=== PATIENT | female | born 1930 | race Caucasian/White ===

== ENCOUNTER 2019-07-16 07:02 | Inpatient (IN) ==
--- NOTE | 2019-06-25 16:31 | PAT Medication Instructions ---
Medication Instructions Date of Service June 25, 2019 Home Medications C,E,zinc,copper [id number] [Ocuvite Adult 50 Plus] 1 cap PO HS amlodipine [Norvasc] 10 mg PO QAM calcium carbonate-vitamin D3 [Calcium 600 + D(3)] 1 cap PO BID cetirizine [Zyrtec] 10 mg PO QAM PRN cholecalciferol (vitamin D3) [Vitamin D3] 1,000 unit PO BID coQ10 (ubiquinol) 50 mg PO QAM fluticasone furoate [Arnuity Ellipta] 1 inh INHALATION QAM fluticasone propionate [Flonase Allergy Relief] 1 spray INTRANASAL QAM ibuprofen 400 mg PO Q6H PRN losartan 50 mg PO QAM magnesium 250 mg PO QAM montelukast [Singulair] 10 mg PO PM potassium gluconate 595 mg PO HS red yeast rice 600 mg PO BID ASK your surgeon for instructions ibuprofen 400 mg PO Q6H PRN STOP taking 2 weeks before surgery C,E,zinc,copper [id number] [Ocuvite Adult 50 Plus] 1 cap PO HS coQ10 (ubiquinol) 50 mg PO QAM red yeast rice 600 mg PO BID DO NOT take the morning of surgery calcium carbonate-vitamin D3 [Calcium 600 + D(3)] 1 cap PO BID cetirizine [Zyrtec] 10 mg PO QAM PRN cholecalciferol (vitamin D3) [Vitamin D3] 1,000 unit PO BID losartan 50 mg PO QAM magnesium 250 mg PO QAM Take morning of surgery With a small sip of water, OTHERWISE NOTHING TO EAT OR DRINK AFTER MIDNIGHT: amlodipine [Norvasc] 10 mg PO QAM fluticasone furoate [Arnuity Ellipta] 1 inh INHALATION QAM fluticasone propionate [Flonase Allergy Relief] 1 spray INTRANASAL QAM Take evening before surgery calcium carbonate-vitamin D3 [Calcium 600 + D(3)] 1 cap PO BID cholecalciferol (vitamin D3) [Vitamin D3] 1,000 unit PO BID montelukast [Singulair] 10 mg PO PM potassium gluconate 595 mg PO HS Other Notes If you have any questions please call us at [phone] or [phone] or [phone] or [phone]
--- NOTE | 2019-06-26 14:05 | Anesthesiology Consultation ---
Date of Service June 26, 2019 Assessment & Plan (1) Encounter for pre-operative examination: Chart Review Chart Review: Acceptable Risk for Surgery (pending surgeon-ordered PCP clearance) and Patient seen in Pre Admission Testing Teaching & Discussion Instructed NPO after midnight before surgery, except medications with 15 cc of water. Medication instructions provided according to the PAT guidelines. History Surgery Operation Date: 07/16/19 11:25 Proposed Procedures p Right Anterior Total Hip Arthroplasty - Demetri Gunter DO Height/Weight Height: 5 ft 2 in Weight: 76.1 kg Allergies Allergy/AdvReac Type Severity Reaction Status Date / Time No Known Allergies Allergy Mild Verified 06/25/19 13:38 Medications Home Medications Medication Instructions Recorded Confirmed Last Taken C,E,zinc,copper [id number] 1 cap PO HS 06/25/19 06/25/19 Unknown [Ocuvite Adult 50 Plus] amlodipine [Norvasc] 10 mg PO QAM 06/25/19 06/25/19 Unknown calcium carbonate-vitamin D3 1 cap PO BID 06/25/19 06/25/19 Unknown [Calcium 600 + D(3)] cetirizine [Zyrtec] 10 mg PO QAM PRN 06/25/19 06/25/19 Unknown cholecalciferol (vitamin D3) 1,000 unit PO BID 06/25/19 06/25/19 Unknown [Vitamin D3] coQ10 (ubiquinol) 50 mg PO QAM 06/25/19 06/25/19 Unknown fluticasone furoate [Arnuity 1 inh INHALATION QAM 06/25/19 06/25/19 Unknown Ellipta] fluticasone propionate [Flonase 1 spray INTRANASAL QAM 06/25/19 06/25/19 Unknown Allergy Relief] ibuprofen 400 mg PO Q6H PRN 06/25/19 06/25/19 Unknown losartan 50 mg PO QAM 06/25/19 06/25/19 Unknown magnesium 250 mg PO QAM 06/25/19 06/25/19 Unknown montelukast [Singulair] 10 mg PO PM 06/25/19 06/25/19 Unknown potassium gluconate 595 mg PO HS 06/25/19 06/25/19 Unknown red yeast rice 600 mg PO BID 06/25/19 06/25/19 Unknown Past Medical History Medical History Arthritis Asthma BRONCHIAL F/U DR JENN ALMEIDA. ARNUITY ELLIPTA DAILY, NO PRN INHALER. GERD (gastroesophageal reflux disease) Hiatal hernia Hyperlipidemia PCP MONITORING Hypertension Osteoporosis Urinary incontinence Exercise / Class Metabolic Activity III < 4 Walking/Shop/Light housework (denies CP or SOB with 1 FOS but moving v dimitris slowly 2/2 hip pain) Past Surgical History Surgical History H/O parathyroidectomy History of appendectomy History of bladder surgery FOR INCONTINENCE History of colonoscopy History of esophagogastroduodenoscopy (EGD) History of hysterectomy TOTAL History of total knee replacement R/L Past Anesthesia History No Hx of Anesthesia Complications and No Family Hx of Anesthesia Complications History of PONV No Hx of PONV and No Hx of Motion Sickness (but sometimes has vertigo) Social History Smoking Status: Never smoker Do You Dip or Chew Tobacco: No Hx Alcohol Use: Yes Alcohol type: wine alcohol intake frequency: holidays/special occasions only Hx Substance Use: No Review of Systems Pt denies any recent chest pain, shortness of breath, palpitations, cough, fever or URI. Physical Exam Vital Signs BP: 132/78 P: 77bpm SPO2: 94% RA T: 97.5 F R: 12 ENMT Mouth: + dentures (partial upper); no dental restorations, no chipped teeth and no loose teeth Thyromental Distance: < 3.5 Finger Breadths (3) Mallampati Class: III Neck + short neck; neck extension not limited Respiratory normal respiratory effort Auscultation: lungs clear to auscultation bilaterally Cardiovascular Rate/Rhythm: regular rate and regular rhythm Heart Sounds: no murmur Vessels: no carotid bruit Extremities: no edema Testing Laboratory Results 06/26/19 14:15 PT 10.3 Seconds (9.0-12.0) 06/26/19 14:15 INR 1.0 (0.9-1.1) 06/26/19 14:15 APTT 23.6 Seconds (21.0-31.0) 06/26/19 14:15 Urine Color Yellow 06/26/19 14:15 Urine Appearance Cloudy (Clear) A 06/26/19 14:15 Urine pH 6.5 (4.5-7.5) 06/26/19 14:15 Ur Specific [place] 1.021 (1.000-1.030) 06/26/19 14:15 Urine Protein Negative (Negative) 06/26/19 14:15 Urine Glucose (UA) Negative (Negative) 06/26/19 14:15 Urine Ketones Trace (Negative) H 06/26/19 14:15 Urine Nitrite Positive (Negative) A 06/26/19 14:15 Ur Leukocyte Esterase 2+ (Negative) H 06/26/19 14:15 Urine WBC (Auto) >30 /hpf (0-5) H 06/26/19 14:15 Urine RBC (Auto) 0-4 /hpf (0-4) 06/26/19 14:15 U Hyaline Cast (Auto) 5-10 /lpf (0-5) H 06/26/19 14:15 U Epithel Cells (Auto) 5-10 /lpf (0-5) H 06/26/19 14:15 Urine Bacteria (Auto) 4+ (Negative) H 06/26/19 14:15 06/18/19 SODIUM: 141 POTASSIUM: 4.2 CHLORIDE: 106 CO2: 31 BUN: 26 CREATININE: 1.10 GLUCOSE: 117 A1C: 6.2% Electrocardiogram Date: 06/26/19 Findings: + NSR @ (70 with occasional PVCs) Chest X-Ray Date: 06/26/19 Findings: + NAD Pulmonary Function Test Date: 05/07/19 No significant expiratory airflow obstruction. There is some, but not significant, improvement in airflow following inhaled bronchodilator. Final impression: Normal spirometry.
--- NOTE | 2019-06-26 15:10 | XRay Report ---
XR chest Pre-admission PA/Lat HISTORY: 88 years-old Female pat preoperative exam. No acute chest complaints COMPARISON: None available TECHNIQUE: PA and lateral views of the chest FINDINGS: Eventration of the right hemidiaphragm. The cardiomediastinal and hilar silhouettes are within normal limits. Tortuosity of the descending thoracic aorta. No pneumothorax, large pleural effusion, focal airspace consolidation or overt pulmonary edema. Mild blunting of the posterior costophrenic angles. Degenerative changes of the shoulders and spine. Sigmoidal scoliosis of the thoracolumbar spine. IMPRESSION: No acute process. ACT 112: Negative or not required by law. The above report was generated using voice recognition software. It may contain grammatical, syntax o r spelling errors. Electronically signed by: Bin Carr M.D. 06/26/2019 3:09 PM
[2019-06-26 15:56] LABS: Basophils # (auto) 0.02 K/uL (0-0.2); Basophils % (auto) 0.3 %; Eosinophils # (auto) 0.11 K/uL (0-0.5); Eosinophils % (auto) 1.7 %; Hematocrit (blood only) 42.2 % (37-47); Immature Granulocytes # (auto) 0.01 K/uL (0.00-0.02); Immature Granulocytes % (auto) 0.2 %; Lymphocytes # (auto) 1.94 K/uL (1.2-3.4); Lymphocytes % (auto) 30.7 %; Mean Corpuscular Hemoglobin 31.5 pg (25-34); Mean Corpuscular Hgb Conc 33.2 g/dL (32-36); Mean Corpuscular Volume 94.8 fL (80-100); Mean Platelet Volume 12.2 fL (7.4-10.4); Monocytes # (auto) 0.48 K/uL (0.11-0.59); Monocytes % (auto) 7.6 %; Neutrophils # (auto) 3.76 K/uL (1.4-6.5); Neutrophils % (auto) 59.5 %; Platelet Count 192 K/uL (130-400); RDW Coefficient of Variation 13.5 % (11.5-14.5); Red Blood Count 4.45 M/uL (4.2-5.4); White Blood Count 6.32 K/uL (4.8-10.8)
[2019-06-26 15:59] LABS: Appearance Urine Cloudy (Clear); Bacteria Urine Automated 4+ (Negative); Bilirubin Urine Negative (Negative); Blood Urine Negative (Negative); Color Urine Yellow; Glucose Urine UA Negative (Negative); Ketones Urine Trace (Negative); Leukocyte Esterase Urine 2+ (Negative); Nitrite Urine Positive (Negative); Protein Urine Negative (Negative); RBC Urine Automated 0-4 /hpf (0-4); Specific Gravity Urine 1.021 (1.000-1.030); Urobilinogen Urine Negative (Negative); WBC Urine Automated >30 /hpf (0-5); pH Urine 6.5 (4.5-7.5)
[2019-06-26 16:06] LABS: Partial Thromboplastin Ratio 0.9; Partial Thromboplastin Time 23.6 Seconds (21.0-31.0); Prothrombin Time 10.3 Seconds (9.0-12.0)
--- NOTE | 2019-07-15 20:45 | History & Physical Report ---
Date of Service July 15, 2019 Assessment & Plan (1) Degenerative joint disease of right hip: I have indicated the patient for right anterior total hip replacement. The risks, benefits and complications of surgery were explained to the patient which include but not limited to infection, acute blood loss, DVT/PE, injury to nerves, vessels, bone, soft tissue, arthrofibrosis, chronic pain, failure of the prosthesis, hip dislocation, leg length discrepancy, need for additional surgery, cardiac and pulmonary events and . The patient wished to proceed with surgery and informed consent was obtained at this time. We will plan for 81mg ASA BID post-operatively for DVT prophylaxis. Upon discharge the patient will be discharged home with home health services. Appropriate clearances by PCP were obtained. The patient is asymptomatic for signs and symptoms of UTI. History of Present Illness Chief Complaint: Right hip pain/djd Primary Care Provider: Joleen Hood DO The patient is a 88 year old female who presents with complaints of severe right hip pain and DJD. The patient has failed outpatient conservative treatments to this point which included NSAIDs, IA corticosteroid injection, PT and a home exercise/walking program. The patient's pain and limited function have progressed to the point where they severely hinder their activities of daily living and they no longer tolerate exercise programs. They are requesting to proceed with total hip replacement surgery. Allergies Allergy/AdvReac Type Severity Reaction Status Date / Time No Known Allergies Allergy Mild Verified 07/16/19 07:48 Home Medications Home Medications Medication Instructions Recorded Confirmed Type C,E,zinc,copper [id number] 1 cap PO HS 06/25/19 07/16/19 History [Ocuvite Adult 50 Plus] amlodipine [Norvasc] 10 mg PO QAM 06/25/19 07/16/19 History calcium carbonate-vitamin D3 1 cap PO BID 06/25/19 07/16/19 History [Calcium 600 + D(3)] cetirizine [Zyrtec] 10 mg PO QAM PRN 06/25/19 07/16/19 History cholecalciferol (vitamin D3) 1,000 unit PO BID 06/25/19 07/16/19 History [Vitamin D3] coQ10 (ubiquinol) 50 mg PO QAM 06/25/19 07/16/19 History fluticasone furoate [Arnuity 1 inh INHALATION QAM 06/25/19 07/16/19 History Ellipta] fluticasone propionate [Flonase 1 spray INTRANASAL QAM 06/25/19 07/16/19 History Allergy Relief] ibuprofen 400 mg PO Q6H PRN 06/25/19 07/16/19 History losartan 50 mg PO QAM 06/25/19 07/16/19 History magnesium 250 mg PO QAM 06/25/19 07/16/19 History montelukast [Singulair] 10 mg PO PM 06/25/19 07/16/19 History potassium gluconate 595 mg PO HS 06/25/19 07/16/19 History red yeast rice 600 mg PO BID 06/25/19 07/16/19 History Past Med/Surg History Medical History Arthritis Asthma BRONCHIAL F/U DR JENN ALMEIDA. ARNUITY ELLIPTA DAILY, NO PRN INHALER. GERD (gastroesophageal reflux disease) Hiatal hernia Hyperlipidemia PCP MONITORING Hypertension Osteoporosis Urinary incontinence Surgical History H/O parathyroidectomy History of appendectomy History of bladder surgery FOR INCONTINENCE History of colonoscopy History of esophagogastroduodenoscopy (EGD) History of hysterectomy TOTAL History of total knee replacement R/L Social History Preferred Language: Yi Communication Ability: Effective Research Assistant Professor Required: No Beliefs That Will Affect Care: None Current Living Situation: Family Other Information That Helps Us Care for You: No Feels Safe at Home: Yes Safety Concerns: Feels Safe At This Time Smoking Status: Never smoker Do You Dip or Chew Tobacco: No ; Second Hand Exposure: No ; Hx Alcohol Use: Yes Alcohol type: wine Hx Substance Use: No Review of Systems Review of Systems: All systems reviewed & are unremarkable except as noted in HPI & below Constitutional: as per Subjective / HPI Physical Exam Physical Exam: RLE NVSI +EHL/FHL/TA/GS SILT grossly, +2 DP pulse, compartments soft NT, limited painful ROM of the hip, antalgic gait Constitutional: WD/WN, vitals as above Eyes: PERRL, conjunctivae normal, anicteric sclerae ENMT: external ear and nose normal, oropharynx normal Neck: trachea midline, no thyromegaly Respiratory: normal respiratory effort, lungs clear to auscultation Cardiovascular: RRR, no murmur, no edema Gastrointestinal (Abdomen): normal bowel sounds, soft, nontender, no hepatosplenomegaly Musculoskeletal: no cyanosis or clubbing, extremities motor strength 5/5 Skin: no rashes, warm and dry Neurologic: patellar DTR's 2+ bilat, sensation intact Psychiatric: A+Ox3, euthymic affect Lymphatic: no cervical or axillary lymphadenopathy Results & Data Diagnostic Findings Multiple views of the hip demonstrates severe DJD with complete loss of the joint space. +osteophytes, +sclerosis, +subchondral cysts.
[~2019-07-16 07:02] MED LIST: ACETAMINOPHEN 500 MG TAB PO SCH; BUPIVACAINE 0.5 % 5 MG/1 ML PF 10ML VIAL ONE; CEFAZOLIN 1000MG 1,000 MG/7.5 ML SYR IV SCH; CEFAZOLIN 2000MG 2,000 MG/15 ML SYR IV SCH; CeleBREX 200 MG CAP PO SCH; FAMOTIDINE 20 MG TAB PO SCH; LR 500ML BOLUS, THEN 15ML/HR IV SCH; METOCLOPRAMIDE HCL 10 MG TABLET PO SCH; ROPIVACAINE 0.5% HCL/PF 150 MG, BUPIVACAINE 0.5% MPF 30 ML, EPINEPHrine 30MG/30ML (OR U... INFIL SCH; TRANEXAMIC ACID 1,000 MG **IV Intra-op IV SCH; TRANEXAMIC ACID 1,000 MG **IV Pre-op IV SCH; dexAMETHasone 4 MG TAB PO SCH
[2019-07-16] MEDS ORDERED: ONDANSETRON INJ 2 MG/ML 2 ML VIAL ONE (07:50)
[2019-07-16] MEDS ORDERED: PROPOFOL IV EMULSION 10 MG/ML 20 ML VIAL IV ONE (07:50)
[2019-07-16] MEDS ORDERED: LIDOCAINE HCL 2% 2 ML VIAL/AMP(20MG/ML) INFIL ONE (07:50)
[2019-07-16] MEDS ORDERED: MIDAZOLAM HCL 1 MG/ML 2ML VIAL ONE ×2 (07:51→10:32)
[2019-07-16] MEDS ORDERED: TRANEXAMIC ACID / 0.7% NACL 1000MG/100ML BAG IV ONE (08:11)
[2019-07-16] MEDS ORDERED: KETOROLAC 30 MG/ML VIAL IV PRN (09:14)
[2019-07-16] MEDS ORDERED: ONDANSETRON INJ 2 MG/ML 2 ML VIAL IV PRN ×2 (09:14→13:12)
[2019-07-16] MEDS ORDERED: HYDROmorphone INJ 1 MG/ML SYRINGE IV PRN (09:14)
[2019-07-16] MEDS ORDERED: PHENYLEPHRINE 100MCG/ML 5ML SYR IV PRN (09:14)
[2019-07-16] MEDS ORDERED: ATROPINE SULFATE 0.1 MG/ML 10ML SYR IV PRN (09:14)
[2019-07-16] MEDS ORDERED: ePHEDrine sulfate 50 MG/ML AMP IV PRN (09:14)
--- NOTE | 2019-07-16 09:25 | History & Physical Bridge Note ---
Date of Service July 16, 2019 History & Physical Bridge Note I have examined the patient, reviewed the History & Physical and in the interval since the performance of the History & Physical I have noted the following changes of clinical significance: no changes noted
[2019-07-16] MEDS ORDERED: ORTHO JOINT ANESTHETIC ONE (09:29)
[2019-07-16] MEDS ORDERED: BACITRACIN INJ 50,000 UNIT VIAL ONE (09:29)
--- NOTE | 2019-07-16 12:09 | Post Operative Brief Note ---
Immediate Post Op Note v1 Date of Surgery July 16, 2019 Pre & Post Diagnosis Operation Date: 07/16/19 09:45 Pre-Op Diagnosis: RIGHT HIP OSTEOARTHRITIS Post-Op Diagnosis: RIGHT HIP OSTEOARTHRITIS I identified the patient and participated in the time-out.: Yes Procedure Operation Date: 07/16/19 09:45 Actual Procedures p Right Anterior Total Hip Arthroplasty, Cemented(Right) - Demetri Gunter DO Surgeon Demetri Gunter DO Oil Well Directional Surveyor Naeem Pederson Estimated Blood Loss 185 Findings Consistent with Post-Op Diagnosis Fluids 1200 cc LR Specimens femoral head Anesthesia Type Spinal MAC Complications none Disposition Disposition: Recovery Room Overlapping Procedure I was present for: the critical portions of procedure. I was immediately available: during the entire case. Back up surgeon: was not required during procedure.
--- NOTE | 2019-07-16 12:12 | Operative Report ---
Post Operative Report Pre & Post Diagnosis Operation Date: 07/16/19 09:45 Pre-Op Diagnosis: RIGHT HIP OSTEOARTHRITIS Post-Op Diagnosis: RIGHT HIP OSTEOARTHRITIS I identified the patient and participated in the time-out.: Yes Procedure Operation Date: 07/16/19 09:45 Actual Procedures p Right Anterior Total Hip Arthroplasty, Cemented(Right) - Demetri Gunter DO Surgeon Demetri Gunter DO Command And Control Naeem Pederson Estimated Blood Loss 185 Findings Consistent with Post-Op Diagnosis Fluids 1200 cc LR Specimens femoral head Anesthesia Type Spinal MAC Complications none Disposition Disposition: Recovery Room Indications The patient is a 88-year-old female who presents with severe progressive right hip DJD who has failed outpatient conservative treatments. I indicated the patient for a anterior total hip replacement and the risks and benefits were explained in detail which include but not limited to infection, bleeding, blood clot, damage to surrounding bone, nerves, vessels, soft tissue, hip dislocation, failure of the prosthesis, leg length discrepancy, need for additional surgery and . The patient agreed to proceed with replacement of the hip and informed consent was obtained. Appropriate clearances were obtained. Description of Procedure COMPONENTS USED: [employer] CP CS hip system: Acetabulum size 50, femur size 4 standard offset CPCS cemented offset, femoral head 32-3, liner 5032, acetabular screw 25 mm x 1. DESCRIPTION OF PROCEDURE: Following satisfactory spinal anesthesia, the patient was placed supine on the OR table. The left leg was placed in the well leg gray and the right leg in the traction device. The right leg was prepared with ChloraPrep and draped sterilely. A surgical timeout was performed, patient identified and site ayse verified. Appropriate antibiotics were given. A standard anterior approach in the interval between the sartorius and tensor muscles was performed. Dissection was carried down through subcutaneous tissues. Electrocautery was utilized for hemostasis. Circumflex femoral vessels were identified, tied and ligated. The anterior capsular fat pad was removed and the capsulotomy was performed revealing the arthritic femoral neck and head. A femoral neck cut was made with reciprocating saw and the bone fragments removed. The acetabular self-retraining retractor was placed. Acetabular reaming was completed under fluoroscopic guidance, a 50 shell was impacted into an anatomic position and secured with a dome screw. Local anesthetic was placed and following irrigation, the polyethylene liner was placed. The femur was placed into position of external rotation, extension and adduction. Femoral canal was prepared up to the size 4 standard offset. Trial reduction with a 32-3 neck length head showed good soft tissue tension, leg lengths restored, and good fit and fill of the proximal canal using fluoroscopic landmarks. The hip was dislocated. The trial component was removed. Next, the canal was irrigated with copious amounts of sterile saline solution with baitracin and dried. Cement restrictor placed in the canal. The final implant was cemented into place and held until all cement hardened. All excess cement was removed. A trial reduction with a 32-3 neck length head showed good soft tissue tension, leg lengths restored, and good fit and fill of the proximal canal using fluoroscopic landmarks. The hip was dislocated and trial head removed. The neck was cleaned and final 32-[address] The hip was reduced once again and showed good soft tissue tension, leg lengths restored. A Betadine soak was performed. After 3 minutes, the hip was once more irrigated with copious sterile saline solution with bacitracin. Jagruti-incisional soft tissue was injected utilizing [employer] which includes a combination of Ropivicaine 0.5% 150mg, Bupivicaine 0.5%/Epinephrine 1:200,000 30ml, Toradol 30mg, Dexamethasone 4mg, Ketamine 10mg, Clonidine 100mcg and NSS 30ml solution. The capsule was then closed with 1-0 Vicryl interrupted figure of eight sutures. The fascia was closed with a running suture of #1 Vicryl, the subcutaneous tissues with 2-0 Vicryl and the skin with a running subcuticular stitch of 3-0 V-Loc. Dermabond prineo and a dry dressing were applied. The patient tolerated the procedure well and was transported to PACU in stable condition. Due to the complex nature of the procedure, the entire surgery was performed with the operational assistance of Naeem pederson PA-C. The assignment desk assistant, under direct supervision, was involved in the actual performance of all aspects of the surgical procedure including patient positioning, hemostasis, tissue retraction, instrument management and wound closure. I attest to the content of the Intraoperative Record and any orders documented therein. Any exceptions are noted below.
--- NOTE | 2019-07-16 12:23 | Fluoroscopy Report ---
FL hip RT 1V CLINICAL HISTORY: RT ANTERIOR HIP COMPARISON STUDY: None. FLUOROSCOPY TIME: 38 seconds. FINDINGS: 2 fluoroscopic spot images of the right hip demonstrate a right total arthroplasty. Hardwar e appears intact. No fracture or dislocation. IMPRESSION: Fluoroscopy provided for a right total arthroplasty. ACT 112: Negative or not required by law. Electronically signed by: Leif Kennedy M.D. 07/16/2019 12:21 PM
--- NOTE | 2019-07-16 12:52 | XRay Report ---
XR hip 1V RT w pelvis CLINICAL HISTORY: 88 years-old Female presenting with IN PACU - A/P PELVIS and LATERAL HIP . TECHNIQUE: Single frontal view of the pelvis and crosstable lateral view of the right hip were obtain ed. COMPARISON: None. FINDINGS: The iliac wheezings and sacrum are excluded from the [id number] limiting evaluation of this region . Postsurgical changes of total right hip arthroplasty evident. Surrounding soft tissue emphysema con sistent with the recent postoperative setting. No malalignment. No periprosthetic fracture or lucency . Visualized portion of the pelvis intact. Left hip joint congruent. IMPRESSION: Expected postsurgical appearance status post total right hip arthroplasty. ACT 112: Negative or not required by law. Electronically signed by: Sam Cartwright M.D. 07/16/2019 12:51 PM
[2019-07-16] MEDS ORDERED: HYDROmorphone INJ 0.5 MG/0.5 ML SYR IV PRN (13:12)
[2019-07-16] MEDS ORDERED: METOCLOPRAMIDE HCL INJ 5 MG/ML 2 ML VIAL IV PRN (13:12)
[2019-07-16] MEDS ORDERED: NALOXONE HCL 0.4 MG/1 ML VIAL/CARP IV PRN (13:12)
[2019-07-16] MEDS ORDERED: MAGNESIUM HYDROXIDE SUSP 30 ML UDC PO PRN (13:12)
[2019-07-16] MEDS ORDERED: bisacodyL 10 MG SUPP PR PRN (13:12)
[2019-07-16] MEDS ORDERED: TRAMADOL HCL 50 MG TABLET PO PRN (13:12)
--- NOTE | 2019-07-16 13:16 | Anesthesiology Progress Note ---
Date of Service July 16, 2019 Anesthesia Post Procedure Vital Signs Vital Signs: Temp Pulse Pulse Resp BP Pulse Ox 07/16/19 12:50 36.0 C L 68 19 132/76 94 07/16/19 12:40 60 16 133/70 98 07/16/19 12:30 70 17 127/70 99 07/16/19 12:23 36.0 C L 76 18 122/88 95 07/16/19 07:54 36.8 C 71 18 210/84 H 96 Pain Intensity Right Hip: Pain Intensity: 4 Transfer of Care Handoff Completed per policy Notes Mental Status: alert / awake / arousable Patient Amnestic to Procedure: Yes Nausea / Vomiting: adequately controlled Pain: adequately controlled Airway Patency, RR, SpO2: stable & adequate BP & HR: stable & adequate Hydration State: stable & adequate Anesthetic Complications: no major complications apparent
[2019-07-16] MEDS: SODIUM CHLORIDE 0.9% 1000ML 1,000 ML IV SCH ×2 (13:55→23:47)
[2019-07-16] MEDS: ACETAMINOPHEN 500 MG TAB PO SCH (15:48)
[2019-07-16] MEDS: KETOROLAC TROMETHAMINE 15 MG/ML VIAL IV SCH ×2 (15:48→21:01)
--- NOTE | 2019-07-16 17:04 | Orthopedic Progress Note ---
Date of Service July 16, 2019 Assessment & Plan (1) Degenerative joint disease of right hip: s/p R anterior ASHLEY -ancef x 24 -DVT ppx: SCDs, TEDs, 81mg ASA BID -WBAT RLE -PT/OT -PO XR demonstrates well aligned well fixed prothesis without fracture/dislocation -a.m. labs -DC planning Subjective Post Operative Progress Note Patient seen sitting up in bed, comfortable, denies complaints, pain well controlled, no acute issues. Review of Systems Review of Systems: All systems reviewed & are unremarkable except as noted in HPI & below Constitutional: as per Subjective / HPI Physical Exam Physical Exam: RLE NVSI +EHL/FHL/TA/GS SILT grossly, +2 DP pulse, compartments soft NT, dressing cdi. Constitutional: WD/WN, vitals as above Results & Data Vital Signs (Past 12 Hours) Vital Signs Temp Pulse Pulse Pulse Resp BP Pulse Ox 07/16/19 16:20 36.6 C 69 17 139/75 95 07/16/19 16:06 36.6 C 69 16 130/74 92 07/16/19 14:59 36.4 C L 18 148/90 H 97 07/16/19 13:53 36.4 C L 16 164/77 H 99 07/16/19 13:05 36.4 C L 62 18 155/82 H 91 07/16/19 12:50 36.0 C L 68 19 132/76 94 07/16/19 12:40 60 16 133/70 98 07/16/19 12:30 70 17 127/70 99 07/16/19 12:23 36.0 C L 76 18 122/88 95 07/16/19 07:54 36.8 C 71 18 210/84 H 96
[2019-07-16] MEDS: CEFAZOLIN 1000MG 1,000 MG/7.5 ML SYR IV SCH (18:50)
[2019-07-16] MEDS: DOCUSATE SODIUM 100 MG CAP PO SCH (20:44)
[2019-07-16] MEDS: SENNA 8.6 MG TAB PO SCH (20:44)
[2019-07-16] MEDS: MONTELUKAST SODIUM 10 MG TABLET PO SCH (20:46)
[2019-07-16] MEDS ORDERED: NON-FORMULARY MEDICATION (Potassium Gluconate 595 MG) PO SCH (21:00)
[2019-07-17] MEDS: CEFAZOLIN 1000MG 1,000 MG/7.5 ML SYR IV SCH (02:55)
[2019-07-17] MEDS: KETOROLAC TROMETHAMINE 15 MG/ML VIAL IV SCH ×2 (03:01→09:29)
[2019-07-17] MEDS: ACETAMINOPHEN 500 MG TAB PO SCH ×3 (05:18→21:31)
[2019-07-17 05:36] LABS: Basophils # (auto) 0.01 K/uL (0-0.2); Basophils % (auto) 0.1 %; Eosinophils # (auto) 0.01 K/uL (0-0.5); Eosinophils % (auto) 0.1 %; Hematocrit (blood only) 32.9 % (37-47); Immature Granulocytes # (auto) 0.02 K/uL (0.00-0.02); Immature Granulocytes % (auto) 0.2 %; Lymphocytes # (auto) 1.53 K/uL (1.2-3.4); Lymphocytes % (auto) 16.5 %; Mean Corpuscular Hemoglobin 31.1 pg (25-34); Mean Corpuscular Hgb Conc 33.4 g/dL (32-36); Mean Corpuscular Volume 92.9 fL (80-100); Mean Platelet Volume 11.2 fL (7.4-10.4); Monocytes # (auto) 0.96 K/uL (0.11-0.59); Monocytes % (auto) 10.3 %; Neutrophils # (auto) 6.77 K/uL (1.4-6.5); Neutrophils % (auto) 72.8 %; Platelet Count 171 K/uL (130-400); RDW Coefficient of Variation 13.3 % (11.5-14.5); RDW Standard Deviation 45.1 fL (36.4-46.3); Red Blood Count 3.54 M/uL (4.2-5.4)
[2019-07-17 06:01] LABS: BUN Creatinine Ratio 21.7 (10-20); Calcium 7.8 mg/dl (8.5-10.1); Creatinine Clr Calc Pharmacy 35.7 ml/min; Est GFR (African American) 57.2; Est GFR (Non-African American) 49.3
--- NOTE | 2019-07-17 08:13 | Orthopedic Progress Note ---
Date of Service July 17, 2019 Assessment & Plan (1) Degenerative joint disease of right hip: s/p R anterior ASHLEY POD#1 -ancef x 24, then discontinue -DVT ppx: SCDs, TEDs, 81mg ASA BID -WBAT RLE -PT/OT -PO XR demonstrates well aligned well fixed prothesis without fracture/dislocation -a.m. labs as noted above, Hgb 11.0 -DC planning-patient is planning on home health services when she is discharged. Supervising Physician Co-Signing Physician Notes Patient seen and examined, agree with above assessment and plan. Subjective Patient currently sitting up in bed. She is awake and alert. No overt complaints this morning. Pain is controlled and she states that currently she is comfortable. Denies any shortness of breath, chest pain, lightheadedness. Review of Systems Review of Systems: All systems reviewed & are unremarkable except as noted in HPI & below Constitutional: as per Subjective / HPI Physical Exam Physical Exam: Dressings are clean, dry, and intact. Mild bruising noted around the dressing itself. Thigh is soft and nontender. Calves are soft and nontender. Neurovascular is intact. Toes are mobile and she has good dorsiflexion/plantarflexion of the feet at this time. Results & Data Vital Signs (Past 12 Hours) Vital Signs Temp Pulse Pulse Resp BP BP Pulse Ox 07/17/19 07:56 36.6 C 72 14 118/68 94 07/17/19 03:00 36.5 C 62 16 145/65 H 96 07/16/19 23:30 36.6 C 69 16 122/74 96 Laboratory Results Laboratory Results WBC 9.30 K/uL (4.8-10.8) 07/17/19 04:58 RBC 3.54 M/uL (4.2-5.4) L 07/17/19 04:58 Hgb 11.0 g/dL (12.0-16.0) L 07/17/19 04:58 Hct 32.9 % (37-47) L 07/17/19 04:58 MCV 92.9 fL (80-100) 07/17/19 04:58 MCH 31.1 pg (25-34) 07/17/19 04:58 MCHC 33.4 g/dL (32-36) 07/17/19 04:58 RDW Std Deviation 45.1 fL (36.4-46.3) 07/17/19 04:58 RDW Coeff of Lola 13.3 % (11.5-14.5) 07/17/19 04:58 Plt Count 171 K/uL (130-400) 07/17/19 04:58 MPV 11.2 fL (7.4-10.4) H 07/17/19 04:58 Immature Gran % (Auto) 0.2 % 07/17/19 04:58 Neut % (Auto) 72.8 % 07/17/19 04:58 Lymph % (Auto) 16.5 % 07/17/19 04:58 [place] % (Auto) 10.3 % 07/17/19 04:58 Eos % (Auto) 0.1 % 07/17/19 04:58 Baso % (Auto) 0.1 % 07/17/19 04:58 Immature Gran # (Auto) 0.02 K/uL (0.00-0.02) 07/17/19 04:58 Neut # (Auto) 6.77 K/uL (1.4-6.5) H 07/17/19 04:58 Lymph # (Auto) 1.53 K/uL (1.2-3.4) 07/17/19 04:58 [place] # (Auto) 0.96 K/uL (0.11-0.59) H 07/17/19 04:58 Eos # (Auto) 0.01 K/uL (0-0.5) 07/17/19 04:58 Baso # (Auto) 0.01 K/uL (0-0.2) 07/17/19 04:58 PT 10.3 Seconds (9.0-12.0) 06/26/19 14:15 INR 1.0 (0.9-1.1) 06/26/19 14:15 APTT 23.6 Seconds (21.0-31.0) 06/26/19 14:15 PTT Ratio 0.9 06/26/19 14:15 Sodium 140 mmol/L (136-145) 07/17/19 04:58 Potassium 4.0 mmol/L (3.5-5.1) 07/17/19 04:58 Chloride 110 mmol/L (98-107) H 07/17/19 04:58 Carbon Dioxide 27 mmol/L (21-32) 07/17/19 04:58 Anion Gap 3.0 (3-11) 07/17/19 04:58 BUN 22 mg/dl (7-18) H 07/17/19 04:58 Creatinine 1.01 mg/dl (0.6-1.2) 07/17/19 04:58 Est Cr Clr Drug Dosing 35.7 ml/min 07/17/19 04:58 Est GFR ( Amer) 57.2 07/17/19 04:58 Est GFR (Non-Af Amer) 49.3 07/17/19 04:58 BUN/Creatinine Ratio 21.7 (10-20) H 07/17/19 04:58 Glucose 111 mg/dl (70-99) H 07/17/19 04:58 Calcium 7.8 mg/dl (8.5-10.1) L 07/17/19 04:58 Urine Color Yellow 06/26/19 14:15 Urine Appearance Cloudy (Clear) A 06/26/19 14:15 Urine pH 6.5 (4.5-7.5) 06/26/19 14:15 Ur Specific [place] 1.021 (1.000-1.030) 06/26/19 14:15 Urine Protein Negative (Negative) 06/26/19 14:15 Urine Glucose (UA) Negative (Negative) 06/26/19 14:15 Urine Ketones Trace (Negative) H 06/26/19 14:15 Urine Blood Negative (Negative) 06/26/19 14:15 Urine Nitrite Positive (Negative) A 06/26/19 14:15 Urine Bilirubin Negative (Negative) 06/26/19 14:15 Urine Urobilinogen Negative (Negative) 06/26/19 14:15 Ur Leukocyte Esterase 2+ (Negative) H 06/26/19 14:15 Urine WBC (Auto) >30 /hpf (0-5) H 06/26/19 14:15 Urine RBC (Auto) 0-4 /hpf (0-4) 06/26/19 14:15 U Hyaline Cast (Auto) 5-10 /lpf (0-5) H 06/26/19 14:15 U Epithel Cells (Auto) 5-10 /lpf (0-5) H 06/26/19 14:15 Urine Bacteria (Auto) 4+ (Negative) H 06/26/19 14:15 Blood Type A Positive 06/26/19 14:15 Antibody Screen NEGATIVE 06/26/19 14:15
[2019-07-17] MEDS: DOCUSATE SODIUM 100 MG CAP PO SCH ×2 (09:26→20:38)
[2019-07-17] MEDS: MULTIVITAMIN TAB PO SCH (09:26)
[2019-07-17] MEDS: ASPIRIN 81 MG ECTAB PO SCH ×2 (09:27→20:38)
[2019-07-17] MEDS: LOSARTAN POTASSIUM 50 MG TAB PO SCH (09:27)
[2019-07-17] MEDS: ARNUITY ELLIPTA INH SCH (09:27)
[2019-07-17] MEDS: AMLODIPINE BESYLATE 5 MG TAB PO SCH (09:28)
[2019-07-17] MEDS: CIPROFLOXACIN 500 MG TAB PO SCH ×2 (10:01→20:37)
[2019-07-17] MEDS: SENNA 8.6 MG TAB PO SCH (20:37)
[2019-07-17] MEDS: MONTELUKAST SODIUM 10 MG TABLET PO SCH (20:37)
[2019-07-17] MEDS: CeleBREX 200 MG CAP PO SCH (20:37)
[2019-07-18] MEDS: ACETAMINOPHEN 500 MG TAB PO SCH ×2 (05:34→13:20)
[2019-07-18 07:24] LABS: Basophils # (auto) 0.01 K/uL (0-0.2); Basophils % (auto) 0.2 %; Eosinophils # (auto) 0.09 K/uL (0-0.5); Eosinophils % (auto) 1.5 %; Hematocrit (blood only) 33.8 % (37-47); Hemoglobin 11.3 g/dL (12.0-16.0); Immature Granulocytes # (auto) 0.01 K/uL (0.00-0.02); Immature Granulocytes % (auto) 0.2 %; Lymphocytes # (auto) 1.95 K/uL (1.2-3.4); Lymphocytes % (auto) 32.1 %; Mean Corpuscular Hemoglobin 31.5 pg (25-34); Mean Corpuscular Hgb Conc 33.4 g/dL (32-36); Mean Corpuscular Volume 94.2 fL (80-100); Mean Platelet Volume 11.4 fL (7.4-10.4); Monocytes # (auto) 0.69 K/uL (0.11-0.59); Monocytes % (auto) 11.3 %; Neutrophils # (auto) 3.33 K/uL (1.4-6.5); Neutrophils % (auto) 54.7 %; Platelet Count 166 K/uL (130-400); RDW Coefficient of Variation 13.7 % (11.5-14.5); RDW Standard Deviation 47.1 fL (36.4-46.3); Red Blood Count 3.59 M/uL (4.2-5.4); White Blood Count 6.08 K/uL (4.8-10.8)
[2019-07-18 07:49] LABS: BUN Creatinine Ratio 22.8 (10-20); Calcium 8.2 mg/dl (8.5-10.1); Creatinine Clr Calc Pharmacy 36.1 ml/min; Est GFR (African American) 57.8; Est GFR (Non-African American) 49.9; Potassium 4.3 mmol/L (3.5-5.1)
--- NOTE | 2019-07-18 07:50 | Orthopedic Progress Note ---
Date of Service July 18, 2019 Assessment & Plan (1) Degenerative joint disease of right hip: s/p R anterior ASHLEY POD#2 -ancef x 24, then discontinue -DVT ppx: SCDs, TEDs, 81mg ASA BID -WBAT RLE -PT/OT -PO XR demonstrates well aligned well fixed prothesis without fracture/dislocation -a.m. labs as noted above, hgb 11.3 -DC planning-patient is planning on home health services when she is discharged. Supervising Physician Co-Signing Physician Notes Patient seen and examined, agree with above assessment and plan. Subjective POD 2 s/p R Anterior ASHLEY Pt lying in bed. States she has some mild pain over the lateral hip and thigh. Denies SOB,CP,LH. No other complaints. Hoping to go home today. Review of Systems Review of Systems: All systems reviewed & are unremarkable except as noted in HPI & below Constitutional: as per Subjective / HPI Physical Exam Physical Exam: Dressing C/D/I. Noted bruising around the dressing/thigh consistent with surgery. Calves soft,NT. NV intact. Good DF/PF. Leg lengths equal. Constitutional: WD/WN, vitals as above Results & Data Vital Signs (Past 12 Hours) Vital Signs Temp Pulse Resp BP Pulse Ox 07/17/19 22:50 36.4 C L 63 16 143/72 H 95 Laboratory Results Laboratory Results WBC 6.08 K/uL (4.8-10.8) 07/18/19 06:41 RBC 3.59 M/uL (4.2-5.4) L 07/18/19 06:41 Hgb 11.3 g/dL (12.0-16.0) L 07/18/19 06:41 Hct 33.8 % (37-47) L 07/18/19 06:41 MCV 94.2 fL (80-100) 07/18/19 06:41 MCH 31.5 pg (25-34) 07/18/19 06:41 MCHC 33.4 g/dL (32-36) 07/18/19 06:41 RDW Std Deviation 47.1 fL (36.4-46.3) H 07/18/19 06:41 RDW Coeff of Lola 13.7 % (11.5-14.5) 07/18/19 06:41 Plt Count 166 K/uL (130-400) 07/18/19 06:41 MPV 11.4 fL (7.4-10.4) H 07/18/19 06:41 Immature Gran % (Auto) 0.2 % 07/18/19 06:41 Neut % (Auto) 54.7 % 07/18/19 06:41 Lymph % (Auto) 32.1 % 07/18/19 06:41 [place] % (Auto) 11.3 % 07/18/19 06:41 Eos % (Auto) 1.5 % 07/18/19 06:41 Baso % (Auto) 0.2 % 07/18/19 06:41 Immature Gran # (Auto) 0.01 K/uL (0.00-0.02) 07/18/19 06:41 Neut # (Auto) 3.33 K/uL (1.4-6.5) 07/18/19 06:41 Lymph # (Auto) 1.95 K/uL (1.2-3.4) 07/18/19 06:41 [place] # (Auto) 0.69 K/uL (0.11-0.59) H 07/18/19 06:41 Eos # (Auto) 0.09 K/uL (0-0.5) 07/18/19 06:41 Baso # (Auto) 0.01 K/uL (0-0.2) 07/18/19 06:41 PT 10.3 Seconds (9.0-12.0) 06/26/19 14:15 INR 1.0 (0.9-1.1) 06/26/19 14:15 APTT 23.6 Seconds (21.0-31.0) 06/26/19 14:15 PTT Ratio 0.9 06/26/19 14:15 Sodium 144 mmol/L (136-145) 07/18/19 06:41 Potassium 4.3 mmol/L (3.5-5.1) 07/18/19 06:41 Chloride 112 mmol/L (98-107) H 07/18/19 06:41 Carbon Dioxide 30 mmol/L (21-32) 07/18/19 06:41 Anion Gap 2.0 (3-11) L 07/18/19 06:41 BUN 23 mg/dl (7-18) H 07/18/19 06:41 Creatinine 1.00 mg/dl (0.6-1.2) 07/18/19 06:41 Est Cr Clr Drug Dosing 36.1 ml/min 07/18/19 06:41 Est GFR ( Amer) 57.8 07/18/19 06:41 Est GFR (Non-Af Amer) 49.9 07/18/19 06:41 BUN/Creatinine Ratio 22.8 (10-20) H 07/18/19 06:41 Glucose 106 mg/dl (70-99) H 07/18/19 06:41 Calcium 8.2 mg/dl (8.5-10.1) L 07/18/19 06:41 Urine Color Yellow 06/26/19 14:15 Urine Appearance Cloudy (Clear) A 06/26/19 14:15 Urine pH 6.5 (4.5-7.5) 06/26/19 14:15 Ur Specific [place] 1.021 (1.000-1.030) 06/26/19 14:15 Urine Protein Negative (Negative) 06/26/19 14:15 Urine Glucose (UA) Negative (Negative) 06/26/19 14:15 Urine Ketones Trace (Negative) H 06/26/19 14:15 Urine Blood Negative (Negative) 06/26/19 14:15 Urine Nitrite Positive (Negative) A 06/26/19 14:15 Urine Bilirubin Negative (Negative) 06/26/19 14:15 Urine Urobilinogen Negative (Negative) 06/26/19 14:15 Ur Leukocyte Esterase 2+ (Negative) H 06/26/19 14:15 Urine WBC (Auto) >30 /hpf (0-5) H 06/26/19 14:15 Urine RBC (Auto) 0-4 /hpf (0-4) 06/26/19 14:15 U Hyaline Cast (Auto) 5-10 /lpf (0-5) H 06/26/19 14:15 U Epithel Cells (Auto) 5-10 /lpf (0-5) H 06/26/19 14:15 Urine Bacteria (Auto) 4+ (Negative) H 06/26/19 14:15 Blood Type A Positive 06/26/19 14:15 Antibody Screen NEGATIVE 06/26/19 14:15
[2019-07-18] MEDS: CeleBREX 200 MG CAP PO SCH (09:36)
[2019-07-18] MEDS: MULTIVITAMIN TAB PO SCH (09:36)
[2019-07-18] MEDS: AMLODIPINE BESYLATE 5 MG TAB PO SCH (09:36)
[2019-07-18] MEDS: DOCUSATE SODIUM 100 MG CAP PO SCH (09:36)
[2019-07-18] MEDS: ARNUITY ELLIPTA INH SCH (09:37)
[2019-07-18] MEDS: LOSARTAN POTASSIUM 50 MG TAB PO SCH (09:37)
[2019-07-18] MEDS: ASPIRIN 81 MG ECTAB PO SCH (09:37)
[2019-07-18] MEDS: CIPROFLOXACIN 500 MG TAB PO SCH (09:37)
--- NOTE | 2019-07-20 13:35 | Discharge Summary ---
Date of Service July 18, 2019 Admission HPI Per Admitting Provider The patient is a 88 year old female who presents with complaints of severe right hip pain and DJD. The patient has failed outpatient conservative treatments to this point which included NSAIDs, IA corticosteroid injection, PT and a home exercise/walking program. The patient's pain and limited function have progressed to the point where they severely hinder their activities of daily living and they no longer tolerate exercise programs. They are requesting to proceed with total hip replacement surgery. Principal Diagnosis Right anterior total hip replacement Discharge Exam RLE NVSI +EHL/FHL/TA/GS SILT grossly, +2 DP pulse, compartments soft NT, dressing cdi. Constitutional WD/WN, vitals as above Discharge Data Allergies Allergy/AdvReac Type Severity Reaction Status Date / Time No Known Allergies Allergy Mild Verified 07/16/19 07:48 Consultations 07/17/19 08:00 Consult Case Management - Discharge Planning Routine Procedures Performed Operation Date: 07/16/19 09:45 Actual Procedures p Right Anterior Total Hip Arthroplasty, Cemented(Right) - Demetri Gunter DO Ordered Studies 07/16/19 09:45 FL fluoroscopy <1hr Routine FL hip RT 1V Routine Hospital Course (1) Degenerative joint disease of right hip: The patient is a 88 -year-old female who presents with long standing history of severe right hip DJD and failed outpatient conservative treatments. The patient's symptoms have progressed to the point where it has been difficult to perform even normal activities of daily living. I indicated the patient for a right anterior total hip arthroplasty, the risks, benefits and complications of the procedure include but not limited to infection, bleeding, damage to bone, nerves, vessels, surrounding soft tissue, may develop blood clots, loss of function, leg length discrepancy, dislocation, failure of the components, loosening of the components, the need for additional surgery and . The patient wished to proceed with surgery at this time and informed consent was obtained. Hospital Course: On 07/16/19 the patient was taken to the operating room, adequate anesthesia admin istered and underwent a right anterior total hip arthroplasty. The patient tolerated the procedure well and was taken to the PACU in stable condition. Post-operatively the patient was started on a DVT ppx medication and given appropriate IV antibiotics. Consults were placed to physical therapy, occupational therapy and case management. On POD#1, the patient did well overnight and their pain was well controlled. Labs were drawn and the Hgb was 11.0. The patient progressed well with PT. Dressings were changed at this time and the incision was clean, dry and intact. On POD#2, the patient continued to progress well with PT. No acute issues overnight, pain well controlled. Labd drawn, Hgb 11.3. The patients hospital stay was relatively uneventful and they were deemed stable by the orthopedic team and consultants to be discharged home with on 07/18/19. Discharge Instructions: Upon discharge the patient may weight bear as tolerates through their operative extremity. They were instructed to keep the incision clean and dry at all times. The patient may shower but should not submerge the incision, avoid bathing, pools and hot tubes. The patient was given a script for pain medication and should take as instructed. The patient was given a script for DVT ppx 81mg ASA BID and should take as directed. The patient was instructed to not drive or travel for long distances until cleared to do so. If the patient develops any symptoms of fevers, chills, nausea, vomiting, increased redness, swelling, pain or drainage from the surgical site, they should notify the office and/or proceed to the nearest emergency room. The patient should follow up in 10-14 days after surgery for their routine post-operative follow-up appointment and should call the office to confirm the date and time. s/p R anterior ASHLEY POD#2 -ancef x 24, then discontinue -DVT ppx: SCDs, TEDs, 81mg ASA BID -WBAT RLE -PT/OT -PO XR demonstrates well aligned well fixed prothesis without fractu re/dislocation -a.m. labs as noted above, hgb 11.3 -DC planning-patient is planning on home health services when she is discharged. POD#1 -ancef x 24, then discontinue -DVT ppx: SCDs, TEDs, 81mg ASA BID -WBAT RLE -PT/OT -PO XR demonstrates well aligned well fixed prothesis without fracture/dislocation -a.m. labs as noted above, Hgb 11.0 -DC planning-patient is planning on home health services when she is discharged. Total Time Total Time Spent Total Time Spent (In Minutes): 60 minutes Discharge Plan Discharge Items Patient Disposition: Home - Home Health Services Reason For Visit: RIGHT HIP OSTEOARTHRITIS Discharge Diagnosis: Right anterior total hip replacement Condition on Discharge: Good Activity: Per Instructions section Lifting: Wait until after follow-up appointment Bathing: Keep incision dry Bathing Comment: No bathing, pools or hot tubs. Sexual Activity: Wait until after follow-up appointment Exercise/Sports: Wait until after follow-up appointment Driving/Machine Use: No driving. Weightbearing: Full weightbearing Non-emergency contact: Primary Care Provider and Surgeon Call non-emergency contact if: you have any medication questions, your symptoms worsen, your pain is not controlled, your pain is worsening, your pain is unusual for you, your pain is concerning for you, you have a fever, your temperature is above 101, your wound has increased redness, your wound has increased drainage and your wound pain has increased Follow-up/Referrals: Joleen Hood, [Primary Care Provider] - Diet: Regular Addtl Attending Provider Instructions: ACTIVITY RECOMMENDATIONS: SELF CARE INSTRUCTIONS AFTER TOTAL HIP REPLACEMENT : Direct Anterior Approach Until the incision and soft tissues around your hip have healed, there is a possibility that the hip prosthesis could dislocate. A. Hip flexion ( Up & Down out of chair or steps ) may be difficult. This is normal. B. Numbness in front of the thigh is also normal for a few weeks. C. Use hand rails when walking on stairs. D. Wear low heeled shoes with non-slip soles. E. Be sure that your floors are free of things that could trip you - throw rugs, electrical cords, small objects. Avoid wet and waxed floors, especially with crutches and canes. F. Try to walk several times a day with rest periods between. G. Continue with all the exercises taught to you in the hospital. Again, make walking a part of your daily routine. SPECIAL CARE INSTRUCTIONS: VERY IMPORTANT TO READ AND REVIEW A. You may still be at risk for phlebitis and blood clots. 1. Wear surgical stockings (KEVIN hose) for 2 weeks after surgery to improve circulation and reduce swelling. 2. Take Aspirin 81mg twice daily for 4 weeks or as directed by your doctor. This is your blood thinner. 3. High risk patients may be prescribed a stronger blood thinner if necessary. 4. If you are on Coumadin normally, your family doctor/jacquard loom fixer should monitor your blood work. Expect a phone call the day of or the day after bloodwork is drawn to adjust your dosage. B. You must take antibiotics before having dental work, bladder, bowel and other surgery. Your doctor will provide you with a permanent card to carry describing precautions. C. Call [facility] if you have a fever, redness or swelling around the incision, cloudy drainage from incision, or sudden increase in pain in your hip, not relieved by your regular pain medication. D. Please call the office at if you have any concerns or questions about your operation or recovery. * YOU MAY SHOWER, NO TUB BATHS UNTIL CLEARED BY YOUR DOCTOR. - Keep an extra close eye on the top portion of your incision. Be sure to keep clean & dry. * WEAR KEVIN HOSE 20 HOURS PER DAY FOR 2 WEEKS. * YOU MAY PROGRESS FROM A WALKER, TO A CANE, TO INDEPENDENT AT YOUR OWN PACE. * MOST PATIENTS WILL HAVE HOME NURSING FOR THERAPY. IF YOU DECIDE TO DO OUTPATIENT PHYSICAL THERAPY, PLEASE SCHEDULE THIS 3 TIMES PER WEEK. * DERMABOND Prineo- This is a mesh tape dressing that is covered with glue. It should remain in place until the incision is properly healed, usually 10-14 days. This dressing is designed to naturally slough off. You may trim the ex cess mesh tape as it peels off. Incision may be briefly wet in a shower. Dry immediately by blotting with a clean, dry towel. Do not bath or swim until instructed by your doctor. Do not scratch, rub, or pick at the dressing. Do not apply any topical ointments or lotions until dressing is completely removed and/or instructed by your doctor. There may be a small piece of suture material at one end of your incision. Do not pull or trim this. If it is bothersome or catching on clothing, you may cover it with a band-aid. FOLLOW UP VISIT: If appointment is not already scheduled: Please call [facility] to make a follow-up appointment for 2 weeks after your surgery at . Pending Studies at Discharge: No Stand-Alone Forms: My [employer], Smoking Cessation Medications and DC Order Prescriptions: New celecoxib [Celebrex] 200 mg Capsule 200 mg PO BID PRN (Reason: Pain/inflammation) Qty: 28 RF: 0 ciprofloxacin HCl 500 mg Tablet 500 mg PO BID 5 Days Qty: 10 RF: 0 aspirin [Ecotrin Low Strength] 81 mg Tablet,Delayed Release (Dr/Ec) 81 mg PO BID Qty: 56 RF: 0 tramadol 50 mg Tablet 50 mg PO Q6H MDD 6 tabs PRN (Reason: pain) Qty: 30 RF: 0 acetaminophen 500 mg Tablet 1,000 mg PO Q8 PRN (Reason: pain/fevers) Qty: 90 RF: 0 sennosides [Senokot] 8.6 mg Tablet 17.2 mg PO HS PRN (Reason: constipation) Qty: 28 RF: 0 Continued losartan 50 mg Tablet 50 mg PO QAM RF: 0 amlodipine [Norvasc] 10 mg Tablet 10 mg PO QAM RF: 0 montelukast [Singulair] 10 mg Tablet 10 mg PO PM RF: 0 fluticasone propionate [Flonase Allergy Relief] 50 mcg/actuation [place],Suspension 1 spray INTRANASAL QAM RF: 0 Arnuity Ellipta 200 mcg/actuation Blister With Device 1 inh INHALATION QAM RF: 0 Calcium 600 + D(3) 600 mg calcium- 200 unit Capsule 1 cap PO BID RF: 0 potassium gluconate 595 mg (99 mg) Tablet 595 mg PO HS RF: 0 cholecalciferol (vitamin D3) [Vitamin D3] 1,000 unit Tablet,Chewable 1,000 unit PO BID RF: 0 Ocuvite Adult 50 Plus 250-5-1 mg Capsule 1 cap PO HS RF: 0 coQ10 (ubiquinol) 100 mg Capsule 50 mg PO QAM RF: 0 magnesium 250 mg Tablet 250 mg PO QAM RF: 0 red yeast rice 600 mg Capsule 600 mg PO BID RF: 0 Zyrtec 10 mg Capsule 10 mg PO QAM PRN (Reason: Congestion) RF: 0 Discontinued ibuprofen 200 mg Tablet 400 mg PO Q6H PRN (Reason: Pain) RF: 0 Discharge Orders: Discharge Order (Routine); Ordered 07/18/19 Ordered By: Darian Young/Other Patient Handouts: Pain Management, Falls Risks Prevent Admission Data Admit Date/Time: 07/16/19 12:28 Attending Provider: Demetri Gunter Admit Provider: Demetri Gunter Primary Care Provider: Joleen Hood Other Interventions: Discharge Summary Assessment (RN) Last Done: 07/18/19 16:09 DC Date/Time DO NOT enter until pt leaves facility: 07/18/19 16:50
== END 2019-07-18 16:50 | disposition home health service (06) | DRG 470 ==
LOC: PAT 07:02 → 3E 12:28

== ENCOUNTER 2019-07-24 10:56 | Inpatient (IN) ==
[2019-07-24] MEDS ORDERED: ONDANSETRON INJ 2 MG/ML 2 ML VIAL IV PRN ×2 (14:16→18:42)
[2019-07-24] MEDS: SODIUM CHLORIDE 0.9% 1000ML 1,000 ML IV SCH ×2 (14:49→23:57)
[2019-07-24] MEDS ORDERED: HYDROmorphone INJ 0.5 MG/0.5 ML SYR IV PRN (14:51)
--- NOTE | 2019-07-24 14:54 | History & Physical Report ---
Date of Service July 24, 2019 Assessment & Plan (1) Failure of right total hip arthroplasty with dislocation of hip: Patient is being admitted and plans will be for her to go to the operating room this evening for close reduction of her dislocated right ASHLEY. History of Present Illness Chief Complaint: Pain in right hip Primary Care Provider: Joleen Hood DO Patient is an 88-year-old white female known to our practice who is status post right total hip arthroplasty by on very seventh of this year. She had a normal postoperative recovery and was discharged home. The patient states that she was doing quite well at home without any problems. This morning she bent down to put on her socks. She feels that she was not overtly stretching to put the socks on and suddenly felt the hip dislocate. She had immediate pain in the right hip and groin and was unable to ambulate. She was taken to the emergency room and [place] where they attempted to do a close reduction of the hip. This was unsuccessful. Dr Gunter arranged for transfer to [facility] for further care. Currently she is lying in bed and having discomfort from the right hip. She is in no acute distress. She states that she did not fall after the dislocation. There was no loss of consciousness and there was no shortness of breath, chest pain, lightheadedness prior to or after the incident. Allergies Allergy/AdvReac Type Severity Reaction Status Date / Time No Known Allergies Allergy Mild Verified 07/16/19 07:48 Home Medications Home Medications Medication Instructions Recorded Confirmed Type Arnuity Ellipta 1 inh INHALATION QAM 06/25/19 07/24/19 History Calcium 600 + D(3) 1 cap PO BID 06/25/19 07/24/19 History Ocuvite Adult 50 Plus 1 cap PO HS 06/25/19 07/24/19 History Zyrtec 10 mg PO QAM PRN 06/25/19 07/24/19 History amlodipine [Norvasc] 10 mg PO QAM 06/25/19 07/24/19 History cholecalciferol (vitamin D3) 1,000 unit PO BID 06/25/19 07/24/19 History [Vitamin D3] coQ10 (ubiquinol) 50 mg PO QAM 06/25/19 07/24/19 History fluticasone propionate [Flonase 1 spray INTRANASAL QAM 06/25/19 07/24/19 History Allergy Relief] losartan 50 mg PO QAM 06/25/19 07/24/19 History magnesium 250 mg PO QAM 06/25/19 07/24/19 History montelukast [Singulair] 10 mg PO PM 06/25/19 07/24/19 History potassium gluconate 595 mg PO HS 06/25/19 07/24/19 History red yeast rice 600 mg PO BID 06/25/19 07/24/19 History acetaminophen 1,000 mg PO Q8 PRN #90 tab 07/18/19 07/24/19 Rx aspirin [Ecotrin Low Strength] 81 mg PO BID #56 tab 07/18/19 07/24/19 Rx celecoxib [Celebrex] 200 mg PO BID PRN #28 cap 07/18/19 07/24/19 Rx sennosides [Senokot] 17.2 mg PO HS PRN #28 tab 07/18/19 07/24/19 Rx tramadol 50 mg PO Q6H PRN #30 tab MDD 6 tabs 07/18/19 07/24/19 Rx Past Med/Surg History Medical History Arthritis Asthma BRONCHIAL F/U DR JENN ALMEIDA. ARNUITY ELLIPTA DAILY, NO PRN INHALER. GERD (gastroesophageal reflux disease) Hiatal hernia Hyperlipidemia PCP MONITORING Hypertension Osteoporosis Urinary incontinence Surgical History H/O parathyroidectomy History of appendectomy History of bladder surgery FOR INCONTINENCE History of colonoscopy History of esophagogastroduodenoscopy (EGD) History of hysterectomy TOTAL History of total knee replacement R/L History of total right hip replacement Social History Preferred Language: Maori Communication Ability: Effective Roving Machine Operator Required: No Beliefs That Will Affect Care: None Current Living Situation: Family Current Living Situation Comment: lives with son Shahram Other Information That Helps Us Care for You: No Feels Safe at Home: Yes Safety Concerns: Feels Safe At This Time Smoking Status: Never smoker Do You Dip or Chew Tobacco: No ; Second Hand Exposure: No ; Hx Alcohol Use: Yes Alcohol type: wine Hx Substance Use: No Review of Systems Review of Systems: Patient denies any recent fevers, chills, night sweats or unexplained weight loss or weight gain. Denies flu or cold-like symptoms. No increased cough or sputum production. She does state that she has been having sinus drainage which has been clear. Denies any shortness of breath at rest or on exertion. No exacerbations of her asthma. History of hypertension and hyperlipidemia. No chest pain, chest pressure, irregular heartbeat. History of hiatal hernia with GERD. Denies any abdominal pain, unusual nausea, vomiting, diarrhea. Denies hematemesis, hematochezia, melena. No history of CVA, TIA, migraine headache, seizure disorders. Physical Exam Constitutional: WD/WN, vitals as above Eyes: PERRL, conjunctivae normal, anicteric sclerae ENMT: external ear and nose normal, oropharynx normal Respiratory: normal respiratory effort, lungs clear to auscultation Cardiovascular: RRR, no murmur, no edema Gastrointestinal (Abdomen): normal bowel sounds, soft, nontender, no hepatosplenomegaly Musculoskeletal: Examination of the right lower extremity shows it to be shortened and externally rotated compared to the left. She has an incision from her recent surgery on her right hip that is healing well. There is no erythema and there is no drainage. Incision is well approximated. No attempts were made to try and move the right hip due to dislocation. He is nontender in the right knee and range of motion is limited due to dislocated right hip. She has good range of motion of her right ankle and toes and has good sensation. Left lower extremity is within normal limits with range of motion at the hip knee and ankle. Upper extremities are unaffected and she has she is nontender at the shoulders, elbows, and wrists with range of motion being within normal limits. Distal pulses of the upper and lower extremities are equal bilaterally. There is no gross motor or sensory loss seen at this time. Skin: no rashes, warm and dry Neurologic: CN's II-XI intact bilaterally Psychiatric: A+Ox3, euthymic affect Genitourinary: Urinary catheter present Results & Data Vital Signs (Past 12 Hours) Vital Signs Temp Pulse Resp BP Pulse Ox 07/24/19 14:00 36.8 C 90 16 155/78 H 99 Supervising Physician Co-Signing Physician Notes The patient was seen and examined in preoperative holding. Agree with above assessment and plan. X-rays taken at [facility] confirmed anterior superior right total hip dislocation without fracture. I have indicated the patient for closed reduction of right total hip arthroplasty. I explained the risk, benefits, complications and alternatives to the procedure to the patient and family who was present at bedside. These include however not limited to injury to nerves, bones including fracture, vessels and soft tissue, failure of the components, irreducible hip, recurrent instability, need for surgery, loss of limb and loss of life. Alternatives include no reduction which would result in worsening symptoms. The patient and family wish to proceed with closed reduction at this time and informed consent was obtained.
[2019-07-24 15:00] LABS: Hematocrit (blood only) 34.9 % (37-47); Hemoglobin 11.9 g/dL (12.0-16.0); Mean Corpuscular Hemoglobin 31.1 pg (25-34); Mean Corpuscular Hgb Conc 34.1 g/dL (32-36); Mean Corpuscular Volume 91.1 fL (80-100); Mean Platelet Volume 10.6 fL (7.4-10.4); Platelet Count 256 K/uL (130-400); RDW Coefficient of Variation 13.4 % (11.5-14.5); RDW Standard Deviation 43.9 fL (36.4-46.3); Red Blood Count 3.83 M/uL (4.2-5.4); White Blood Count 8.43 K/uL (4.8-10.8)
[2019-07-24 15:08] LABS: Prothrombin Time 10.1 Seconds (9.0-12.0)
[2019-07-24 15:17] LABS: Calcium 8.7 mg/dl (8.5-10.1); Creatinine Clr Calc Pharmacy 42.4 ml/min; Est GFR (African American) 70.4; Est GFR (Non-African American) 60.7; Potassium 3.7 mmol/L (3.5-5.1)
--- NOTE | 2019-07-24 16:12 | XRay Report ---
XR hip RT 2V w pelvis CLINICAL HISTORY: hip dislocation COMPARISON: None. DISCUSSION: Superior dislocation. No well-defined fracture. There is no evidence for soft tissue swel ling. IMPRESSION: Superior dislocation ACT 112: Negative or not required by law. The above report was generated using voice recognition software. It may contain grammatical, syntax or spelling errors. Electronically signed by: Abraham Terry M.D. 07/24/2019 4:10 PM
--- NOTE | 2019-07-24 18:22 | Anesthesiology Consultation ---
Date of Service July 24, 2019 Assessment & Plan (1) Encounter for pre-operative examination: Chart Review Chart Review: Acceptable Risk for Surgery and Patient NOT seen in Pre Admission Testing Consults Requested none ASA ASA3 Proposed Anesthesia Anesthesia Type: General Risk / Benefits Reviewed With: PT / POA / Parent / Guardian, Accepts Plan and Informed Consent Obtained History Surgery Operation Date: 07/24/19 09:00 Proposed Procedures p Right Disslocated Hip Closed Reduction - Demetri Gunter DO Height/Weight Height: 5 ft 2 in Weight: 74.4 kg Allergies Allergy/AdvReac Type Severity Reaction Status Date / Time No Known Allergies Allergy Mild Verified 07/16/19 07:48 Medications Home Medications Medication Instructions Recorded Confirmed Last Taken Arnuity Ellipta 1 inh INHALATION QAM 06/25/19 07/24/19 07/16/19 05:00 Calcium 600 + D(3) 1 cap PO BID 06/25/19 07/24/19 07/15/19 19:30 Ocuvite Adult 50 Plus 1 cap PO HS 06/25/19 07/24/19 07/02/19 Zyrtec 10 mg PO QAM PRN 06/25/19 07/24/19 07/02/19 amlodipine [Norvasc] 10 mg PO QAM 06/25/19 07/24/19 07/16/19 05:00 cholecalciferol (vitamin D3) 1,000 unit PO BID 06/25/19 07/24/19 07/15/19 19:30 [Vitamin D3] coQ10 (ubiquinol) 50 mg PO QAM 06/25/19 07/24/19 07/02/19 fluticasone propionate [Flonase 1 spray INTRANASAL QAM 06/25/19 07/24/19 07/16/19 05:00 Allergy Relief] losartan 50 mg PO QAM 06/25/19 07/24/19 07/15/19 08:00 magnesium 250 mg PO QAM 06/25/19 07/24/19 07/02/19 montelukast [Singulair] 10 mg PO PM 06/25/19 07/24/19 07/15/19 19:30 potassium gluconate 595 mg PO HS 06/25/19 07/24/19 07/15/19 19:30 red yeast rice 600 mg PO BID 1207/24/19 07/02/19 acetaminophen 1,000 mg PO Q8 PRN #90 tab 07/18/19 07/24/19 Unknown aspirin [Ecotrin Low Strength] 81 mg PO BID #56 tab 07/18/19 07/24/19 Unknown celecoxib [Celebrex] 200 mg PO BID PRN #28 cap 07/18/19 07/24/19 Unknown sennosides [Senokot] 17.2 mg PO HS PRN #28 tab 07/18/19 07/24/19 Unknown tramadol 50 mg PO Q6H PRN #30 tab MDD 6 tabs 07/18/19 07/24/19 Unknown Active Medications Generic Name Dose Route Start Last Admin Trade Name Freq PRN Reason Stop Dose Admin Hydromorphone HCl 0.25 mg 07/24/19 14:51 07/24/19 15:01 Dilaudid IV 08/07/19 14:50 0.25 mg Q4H PRN Administration Pain Sodium Chloride 1,000 mls @ 15 mls/hr 07/24/19 14:30 07/24/19 14:49 Nss 1000ml IV 08/23/19 14:29 15 mls/hr .Q24H ARACELY Administration NPO Date Last Intake of Fluids: 07/23/19 Time Last Intake of Fluids: 23:00 Date Last Intake of Solids: 07/23/19 Time Last Intake of Solids: 23:00 Past Medical History Medical History Arthritis Asthma BRONCHIAL F/U DR JENN ALMEIDA. ARNUITY ELLIPTA DAILY, NO PRN INHALER. GERD (gastroesophageal reflux disease) Hiatal hernia Hyperlipidemia PCP MONITORING Hypertension Osteoporosis Urinary incontinence Exercise / Class Metabolic Activity III < 4 Walking/Shop/Light housework Past Surgical History Surgical History H/O parathyroidectomy History of appendectomy History of bladder surgery FOR INCONTINENCE History of colonoscopy History of esophagogastroduodenoscopy (EGD) History of hysterectomy TOTAL History of total knee replacement R/L History of total right hip replacement Past Anesthesia History No Hx of Anesthesia Complications and No Family Hx of Anesthesia Complications History of PONV No Hx of PONV and No Hx of Motion Sickness Social History Smoking Status: Never smoker Do You Dip or Chew Tobacco: No Hx Alcohol Use: Yes Alcohol type: wine alcohol intake frequency: holidays/special occasions only Hx Substance Use: No substance use type: does not use Review of Systems PT denies any recent CP, SOB, cold, or URI. Physical Exam Vital Signs Last Vital Signs Temp 36.8 C 07/24/19 14:00 Pulse 90 07/24/19 14:00 Resp 16 07/24/19 14:00 BP 155/78 H 07/24/19 14:00 Pulse Ox 99 07/24/19 14:00 Constitutional + obese ENMT Mouth: + dentures (Partial - out); no TMJ abnormality and oral opening not small Thyromental Distance: < 3.5 Finger Breadths (3) Mallampati Class: II Mouth / Teeth: 1. Missing Neck normal visual inspection; neck extension not limited Respiratory normal respiratory effort Auscultation: lungs clear to auscultation bilaterally Cardiovascular Rate/Rhythm: regular rate and regular rhythm Heart Sounds: no murmur Vessels: no carotid bruit Neurologic moves all extremities Psychiatric Orientation: alert and oriented x 3 Testing Laboratory Results 07/24/19 14:42 07/24/19 14:42 PT 10.1 Seconds (9.0-12.0) 07/24/19 14:42 INR 1.0 (0.9-1.1) 07/24/19 14:42 Blood Type A Positive 07/24/19 14:42 Antibody Screen NEGATIVE 07/24/19 14:42
[2019-07-24] MEDS ORDERED: SUCCINYLCHOLINE CHLORIDE 20 MG/ML 10 ML VIAL ONE (18:40)
[2019-07-24] MEDS ORDERED: LIDOCAINE HCL 2% 2 ML VIAL/AMP(20MG/ML) INFIL ONE (18:40)
[2019-07-24] MEDS ORDERED: ROCURONIUM BROMIDE 10 MG/ML 5 ML VIAL ONE (18:40)
[2019-07-24] MEDS ORDERED: fentaNYL citrate 100 MCG/2 ML VIAL ONE (18:40)
[2019-07-24] MEDS ORDERED: LARYING-O-JET KIT (LTA) ONE (18:40)
[2019-07-24] MEDS ORDERED: ONDANSETRON INJ 2 MG/ML 2 ML VIAL ONE (18:40)
[2019-07-24] MEDS ORDERED: DEXAMETHASONE SOD INJ 4 MG/ML VIAL ONE (18:40)
[2019-07-24] MEDS ORDERED: PROPOFOL IV EMULSION 10 MG/ML 20 ML VIAL IV ONE (18:40)
[2019-07-24] MEDS ORDERED: ATROPINE SULFATE 0.1 MG/ML 10ML SYR IV PRN (18:42)
[2019-07-24] MEDS ORDERED: fentaNYL citrate 100 MCG/2 ML VIAL IV PRN (18:42)
[2019-07-24] MEDS ORDERED: ePHEDrine sulfate 50 MG/ML AMP IV PRN (18:42)
--- NOTE | 2019-07-24 18:46 | History & Physical Bridge Note ---
Date of Service July 24, 2019 History & Physical Bridge Note I have examined the patient, reviewed the History & Physical and in the interval since the performance of the History & Physical I have noted the following changes of clinical significance: no changes noted
--- NOTE | 2019-07-24 19:23 | Post Operative Brief Note ---
Immediate Post Op Note v1 Date of Surgery July 24, 2019 Pre & Post Diagnosis Operation Date: 07/24/19 09:00 Pre-Op Diagnosis: Dislocated Right Total Hip Arthroplasty Post-Op Diagnosis: Dislocated Right Total Hip Arthroplasty I identified the patient and participated in the time-out.: Yes Procedure Operation Date: 07/24/19 09:00 Actual Procedures p Closed Reduction Right Total Hip Arthroplasty(Right) - Demetri Gunter DO Surgeon Demerti Gunter DO Legal Service Specialist none Estimated Blood Loss 0 Findings Consistent with Post-Op Diagnosis Anesthesia Type General Complications none Disposition Disposition: Recovery Room Overlapping Procedure I was present for: the critical portions of procedure. I was immediately available: during the entire case. Back up surgeon: was not required during procedure.
--- NOTE | 2019-07-24 19:43 | Operative Report ---
Post Operative Report Pre & Post Diagnosis Operation Date: 07/24/19 09:00 Pre-Op Diagnosis: Dislocated Right Total Hip Arthroplasty Post-Op Diagnosis: Dislocated Right Total Hip Arthroplasty Operation Date: 07/25/19 15:30 <No data on this case meets the specified criteria> I identified the patient and participated in the time-out.: Yes Procedure Operation Date: 07/24/19 09:00 Actual Procedures p Closed Reduction Right Total Hip Arthroplasty(Right) - Demetri Gunter DO Operation Date: 07/25/19 15:30 <No data on this case meets the specified criteria> Surgeon Demetri Gunter DO Internal Investigator none Estimated Blood Loss 0 Findings Consistent with Post-Op Diagnosis Specimens None Anesthesia Type General Complications none Disposition Disposition: Recovery Room Description of Procedure The patient was brought to the operating room and transferred to the OR table. After the patient received adequate anesthesia leg lengths were assessed and the right lower extremity was found to be short and externally rotated. A timeout was performed, site ayse identified and x-rays verified. The C arm fluoroscopy was positioned and initial x-rays of the right hip and femur demonstrated a anterior superior dislocation of the total hip prosthesis without fracture of the femur. A gentle reduction maneuver was performed with traction, flexion, adduction of the hip and a combination of internal and external rotation was applied to the right leg. A appreciable clunk was felt and leg lengths were assessed once more and found to be equal. C-arm fluoroscopy was brought in once more and images were taken confirming reduction of the total hip prosthesis. X- rays of the femur demonstrated no new fracture of the femur post-reduction. The patient tolerated the procedure well and was transferred to the PACU in stable condition. I attest to the content of the Intraoperative Record and any orders documented therein. Any exceptions are noted below.
--- NOTE | 2019-07-24 19:47 | Fluoroscopy Report ---
FL hip RT 2-3V CLINICAL HISTORY: RT HIP CLOSED REDUCTIONdislocated hip prosthesis COMPARISON STUDY: FLUOROSCOPY TIME: 39 seconds. NUMBER OF FLUOROSCOPIC IMAGES: 2 FINDINGS: 2 intraoperative fluoroscopic spot images reveal interval reduction of the previously ident ified dislocated right hip prosthesis IMPRESSION: Interval reduction of the previously identified dislocated right hip prosthesis ACT 112: Negative or not required by law. Electronically signed by: Salvador Gonsales M.D. 07/24/2019 7:45 PM
--- NOTE | 2019-07-24 20:01 | Anesthesiology Progress Note ---
Date of Service July 24, 2019 Anesthesia Post Procedure Vital Signs Vital Signs: Temp Pulse Pulse Resp BP Pulse Ox 07/24/19 19:55 37.1 C 96 H 21 132/79 99 07/24/19 19:45 37.1 C 97 H 12 137/83 100 07/24/19 19:37 37.1 C 101 H 16 112/87 100 07/24/19 18:23 37.7 C H 93 H 18 143/73 H 92 07/24/19 14:00 36.8 C 90 16 155/78 H 99 Pain Intensity Right Hip: Pain Intensity: 0 Transfer of Care Handoff Completed per policy Notes Mental Status: alert / awake / arousable and participated in evaluation Patient Amnestic to Procedure: Yes Nausea / Vomiting: adequately controlled Pain: adequately controlled Airway Patency, RR, SpO2: stable & adequate BP & HR: stable & adequate Hydration State: stable & adequate Anesthetic Complications: no major complications apparent and Pt Satisfied with anesthetic care
--- NOTE | 2019-07-24 20:03 | XRay Report ---
XR hip 1V RT w pelvis CLINICAL HISTORY: Dislocation status post reduction COMPARISON: 07/24/2019 DISCUSSION: There is been interval reduction of the previously identified dislocated right hip prosth esis. No fractures are visualized IMPRESSION: Interval reduction of the previously identified dislocated right hip prosthesis. No acute fractures or dislocations identified. ACT 112: Negative or not required by law. Electronically signed by: Salvador Gonsales M.D. 07/24/2019 8:02 PM
[2019-07-24] MEDS ORDERED: METOCLOPRAMIDE HCL INJ 5 MG/ML 2 ML VIAL IV PRN (20:21)
[2019-07-24] MEDS ORDERED: MAGNESIUM HYDROXIDE SUSP 30 ML UDC PO PRN (20:21)
[2019-07-24] MEDS ORDERED: NALOXONE HCL 0.4 MG/1 ML VIAL/CARP IV PRN (20:21)
[2019-07-24] MEDS ORDERED: SENNA 8.6 MG TAB PO PRN (20:21)
[2019-07-24] MEDS ORDERED: TRAMADOL HCL 50 MG TABLET PO PRN (20:21)
[2019-07-24] MEDS ORDERED: bisacodyL 10 MG SUPP PR PRN (20:21)
--- NOTE | 2019-07-24 20:44 | Orthopedic Progress Note ---
Date of Service July 24, 2019 Assessment & Plan (1) Failure of right total hip arthroplasty with dislocation of hip: s/p closed reduction right total hip -DVT ppx: SCDs, TEDs, hold pharmacologic agents -NWB RLE -Bedrest -PO XR demonstrates reduction of total hip with residual subluxation suggesting soft tissue impingement in the acetabular component. No fractures identified. -am labs -Hospitalist consult for medical clearance -Plan for OR 07/25/19, open reduction right anterior ASHLEY, with head and liner exchange -NPO after midnight Subjective Post Operative Progress Note Patient seen in PACU, comfortable, denies complaints, pain well controlled, no acute issues. Review of Systems Review of Systems: All systems reviewed & are unremarkable except as noted in HPI & below Constitutional: as per Subjective / HPI Physical Exam Physical Exam: RLE NVSI +EHL/FHL/TA/GS SILT grossly, +2 DP pulse, compartments soft NT, leg lengths grossly equal on exam Constitutional: WD/WN, vitals as above Results & Data Vital Signs (Past 12 Hours) Vital Signs Temp Pulse Pulse Resp BP Pulse Ox 07/24/19 20:05 37.0 C 91 H 14 142/71 H 97 07/24/19 19:55 37.1 C 96 H 21 132/79 99 07/24/19 19:45 37.1 C 97 H 12 137/83 100 07/24/19 19:37 37.1 C 101 H 16 112/87 100 07/24/19 18:23 37.7 C H 93 H 18 143/73 H 92 07/24/19 14:00 36.8 C 90 16 155/78 H 99
[2019-07-24] MEDS ORDERED: NON-FORMULARY MEDICATION (Potassium Gluconate 595 MG) PO SCH (21:00)
[2019-07-24] MEDS: SENNA 8.6 MG TAB PO SCH (21:33)
[2019-07-24] MEDS: DOCUSATE SODIUM 100 MG CAP PO SCH (21:33)
--- NOTE | 2019-07-24 22:43 | Hospitalist Consultation ---
Date of Consultation July 24, 2019 Assessment & Plan (1) Encounter for pre-operative examination: 88 yo F with PMH HTN, HLD, Arthritis, Asthma, GERD seen for pre-operative clearance. -Pt is RCRI Class I risk for Intermediate Risk Orthopedic Surgery -given pt age >65, will order NT-ProBNP along with AM labs -If the NT-ProBNP is >300 ng/L, then there should be an EKG ordered in the PACU and troponins should be measured daily for 48-72 hours -If, after risk stratification, the NT-ProBNP is <300 ng/L, no routine postoperative cardiac monitoring is warranted -Otherwise medically optimized Supervising Physician Co-Signing Physician Notes Patient was seen and examined by me personally. I reviewed the chart, the orders and discussed the case in detail with Dr. Dread Briscoe DO . I read this consultation note and agree with its contents to entirety. History of Present Illness Reason for Consultation: pre op clearance Attending Physician: Demetri Gunter DO History of Present Illness 88 yo F with PMH HTN, HLD, Arthritis, Asthma, GERD seen for pre-operative clearance. -Pt planned for OR 07/25/19 for open reduction right anterior ASHLEY, with head and liner exchange. Procedure to be done by Dr. Gunter. -pt is RCRI Class I risk -Cardiac Capacity >4METs -07/24 EKG reviewed -No adverse reactions to anesthesia in the past -Pt with no other acute concerns or complaints Allergies Allergy/AdvReac Type Severity Reaction Status Date / Time No Known Allergies Allergy Mild Verified 07/16/19 07:48 Home Medications Home Medications Medication Instructions Recorded Confirmed Type Arnuity Ellipta 1 inh INHALATION QAM 06/25/19 07/24/19 History Calcium 600 + D(3) 1 cap PO BID 06/25/19 07/24/19 History Ocuvite Adult 50 Plus 1 cap PO HS 06/25/19 07/24/19 History Zyrtec 10 mg PO QAM PRN 06/25/19 07/24/19 History amlodipine [Norvasc] 10 mg PO QAM 06/25/19 07/24/19 History cholecalciferol (vitamin D3) 1,000 unit PO BID 06/25/19 07/24/19 History [Vitamin D3] coQ10 (ubiquinol) 50 mg PO QAM 06/25/19 07/24/19 History fluticasone propionate [Flonase 1 spray INTRANASAL QAM 06/25/19 07/24/19 History Allergy Relief] losartan 50 mg PO QAM 06/25/19 07/24/19 History magnesium 250 mg PO QAM 06/25/19 07/24/19 History montelukast [Singulair] 10 mg PO PM 06/25/19 07/24/19 History potassium gluconate 595 mg PO HS 06/25/19 07/24/19 History red yeast rice 600 mg PO BID 06/25/19 07/24/19 History acetaminophen 1,000 mg PO Q8 PRN #90 tab 07/18/19 07/24/19 Rx aspirin [Ecotrin Low Strength] 81 mg PO BID #56 tab 07/18/19 07/24/19 Rx celecoxib [Celebrex] 200 mg PO BID PRN #28 cap 07/18/19 07/24/19 Rx sennosides [Senokot] 17.2 mg PO HS PRN #28 tab 07/18/19 07/24/19 Rx tramadol 50 mg PO Q6H PRN #30 tab MDD 6 tabs 07/18/19 07/24/19 Rx Patient History Medical History Arthritis Asthma BRONCHIAL F/U DR JENN ALMEIDA. ARNUITY ELLIPTA DAILY, NO PRN INHALER. GERD (gastroesophageal reflux disease) Hiatal hernia Hyperlipidemia PCP MONITORING Hypertension Osteoporosis Urinary incontinence Surgical History H/O parathyroidectomy History of appendectomy History of bladder surgery FOR INCONTINENCE History of colonoscopy History of esophagogastroduodenoscopy (EGD) History of hysterectomy TOTAL History of total knee replacement R/L History of total right hip replacement Social History Preferred Language: Lao Communication Ability: Effective Meeting Planner Required: No Beliefs That Will Affect Care: None Current Living Situation: Family Current Living Situation Comment: lives with son Shahram Other Information That Helps Us Care for You: No Feels Safe at Home: Yes Safety Concerns: Feels Safe At This Time Smoking Status: Never smoker Do You Dip or Chew Tobacco: No ; Second Hand Exposure: No ; Hx Alcohol Use: Yes Alcohol type: wine Hx Substance Use: No Physical Exam Constitutional: WD/WN, vitals as above Eyes: PERRL, conjunctivae normal, anicteric sclerae ENMT: external ear and nose normal, oropharynx normal Respiratory: normal respiratory effort, lungs clear to auscultation Cardiovascular: RRR, no murmur, no edema Gastrointestinal (Abdomen): normal bowel sounds, soft, nontender, no hepatosplenomegaly Musculoskeletal: see Dr. Gunter note concerning RLE Skin: no rashes, warm and dry Psychiatric: A+Ox3, euthymic affect Results & Data Vital Signs (Past 12 Hours) Vital Signs Temp Pulse Pulse Resp BP Pulse Ox 07/24/19 22:16 95 07/24/19 22:14 36.0 C L 92 H 18 145/71 H 89 L 07/24/19 21:15 37.1 C 86 17 133/68 90 07/24/19 20:48 37.0 C 90 17 139/70 92 07/24/19 20:15 36.5 C 89 18 149/77 H 94 07/24/19 20:05 37.0 C 91 H 14 142/71 H 97 07/24/19 19:55 37.1 C 96 H 21 132/79 99 07/24/19 19:45 37.1 C 97 H 12 137/83 100 07/24/19 19:37 37.1 C 101 H 16 112/87 100 07/24/19 18:23 37.7 C H 93 H 18 143/73 H 92 07/24/19 14:00 36.8 C 90 16 155/78 H 99 Laboratory Results Laboratory Results - last 24 hr 07/24/19 07/24/19 07/24/19 14:42 14:42 14:42 WBC 8.43 RBC 3.83 L Hgb 11.9 L Hct 34.9 L MCV 91.1 MCH 31.1 MCHC 34.1 RDW Std Deviation 43.9 RDW Coeff of Lola 13.4 Plt Count 256 MPV 10.6 H PT INR Sodium 132 L Potassium 3.7 Chloride 100 Carbon Dioxide 25 Anion Gap 7.0 BUN 11 Creatinine 0.85 Est Cr Clr Drug Dosing 42.4 Est GFR ( Amer) 70.4 Est GFR (Non-Af Amer) 60.7 BUN/Creatinine Ratio 13.0 Glucose 145 H Calcium 8.7 Blood Type A Positive Antibody Screen NEGATIVE 07/24/19 14:42 WBC RBC Hgb Hct MCV MCH MCHC RDW Std Deviation RDW Coeff of Lola Plt Count MPV PT 10.1 INR 1.0 Sodium Potassium Chloride Carbon Dioxide Anion Gap BUN Creatinine Est Cr Clr Drug Dosing Est GFR ( Amer) Est GFR (Non-Af Amer) BUN/Creatinine Ratio Glucose Calcium Blood Type Antibody Screen Medications Administered Current Inpatient Medications Amlodipine Besylate (Norvasc) 10 mg PO QAM [facility] Stop: 08/24/19 08:59 Bisacodyl (Dulcolax) 10 mg OR DAILY PRN PRN Reason: Constipation Stop: 08/23/19 20:20 Docusate Sodium (Colace) 100 mg PO BID ARACELY Stop: 08/23/19 20:59 Last Admin: 07/24/19 21:33 Dose: 100 mg Documented by: Hydromorphone HCl (Dilaudid) 0.25 mg IV Q4H PRN PRN Reason: Pain Stop: 08/07/19 14:50 Last Admin: 07/24/19 15:01 Dose: 0.25 mg Documented by: Sodium Chloride (Nss 1000ml) 1,000 mls @ 15 mls/hr IV .Q24H ARACELY Stop: 08/23/19 14:29 Last Admin: 07/24/19 14:49 Dose: 15 mls/hr Documented by: Cefazolin Sodium (Ancef 1000mg) 1,000 mg in 7.5 mls @ 2.5 mls/min IV PREOP ARACELY; Protocol Stop: 07/26/19 05:59 Sodium Chloride (Nss 1000ml) 1,000 mls @ 100 mls/hr IV .Q10H ARACELY Stop: 07/25/19 20:49 Losartan Potassium (Cozaar) 50 mg PO QAM [facility] Stop: 08/24/19 08:59 Magnesium Hydroxide (Milk Of Magnesia) 30 ml PO Q6H PRN PRN Reason: Constipation Stop: 08/23/19 20:20 Metoclopramide HCl (Reglan) 10 mg IV Q6H PRN PRN Reason: Nausea And Vomiting Stop: 08/23/19 20:20 Multivitamins (Multivitamin Tab) 1 tab PO QAM [facility] Stop: 08/24/19 08:59 Naloxone HCl (Narcan) 0.1 mg IV Q5M PRN PRN Reason: Oversedation/Resp Depression Stop: 08/23/19 20:20 Ondansetron HCl (Zofran) 4 mg IV Q6H PRN PRN Reason: Nausea/Vomiting Stop: 08/23/19 14:15 Ondansetron HCl (Zofran) 4 mg IV Q6H PRN PRN Reason: Nausea And Vomiting Stop: 08/23/19 20:20 Sennosides (Senokot) 17.2 mg PO HS PRN PRN Reason: constipation Stop: 08/23/19 20:20 Sennosides (Senokot) 17.2 mg PO HS ARACELY Stop: 08/23/19 20:59 Last Admin: 07/24/19 21:33 Dose: 17.2 mg Documented by: Tramadol HCl (Ultram) 50 mg PO Q6H PRN PRN Reason: pain Stop: 08/23/19 20:20 Resident Activity Tracking Resident Involvement: Resident Care Provided Care Provided: Adult Hospital Medicine
[2019-07-25] MEDS: ONDANSETRON INJ 2 MG/ML 2 ML VIAL IV PRN (01:47)
--- NOTE | 2019-07-25 04:19 | Billing Data ---
Date of Service July 24, 2019 Coding Level of Care Code 61071 Inpt Consult Level 4
[2019-07-25] MEDS ORDERED: CEFAZOLIN 1000MG 1,000 MG/7.5 ML SYR IV SCH (06:00)
[2019-07-25] MEDS ORDERED: ROPIVACAINE 0.5% HCL/PF 150 MG, BUPIVACAINE 0.5% MPF 30 ML, EPINEPHrine 30MG/30ML (OR U... INSTIL SCH (06:00)
--- NOTE | 2019-07-25 06:47 | XRay Report ---
XR chest 1V portable CLINICAL HISTORY: Preoperative chest COMPARISON STUDY: 06/26/2019 FINDINGS: There is mild elevation/eventration right hemidiaphragm. The heart is the upper limits of n ormal in size. There is no failure. There is no focal pulmonary consolidation. There are no pleural e ffusions. There is a calcified left lower lung zone granuloma.[ IMPRESSION: No active disease in the chest. ACT 112: Negative or not required by law. Electronically signed by: Salvador Gonsales M.D. 07/25/2019 6:45 AM
[2019-07-25 06:50] LABS: Hematocrit (blood only) 33.4 % (37-47); Hemoglobin 11.1 g/dL (12.0-16.0); Mean Corpuscular Hemoglobin 30.6 pg (25-34); Mean Corpuscular Hgb Conc 33.2 g/dL (32-36); Mean Platelet Volume 10.6 fL (7.4-10.4); Platelet Count 281 K/uL (130-400); RDW Coefficient of Variation 13.6 % (11.5-14.5); RDW Standard Deviation 45.4 fL (36.4-46.3); Red Blood Count 3.63 M/uL (4.2-5.4); White Blood Count 7.05 K/uL (4.8-10.8)
--- NOTE | 2019-07-25 07:19 | Anesthesiology Progress Note ---
Date of Service July 25, 2019 Anesthesia Post Procedure Vital Signs Vital Signs: Temp Pulse Pulse Resp BP Pulse Ox 07/25/19 03:57 36.9 C 87 18 145/77 H 96 07/24/19 23:53 37.0 C 89 17 144/75 H 96 07/24/19 23:17 36.9 C 85 18 137/72 96 07/24/19 22:16 95 07/24/19 22:14 36.0 C L 92 H 18 145/71 H 89 L 07/24/19 21:15 37.1 C 86 17 133/68 90 07/24/19 20:48 37.0 C 90 17 139/70 92 07/24/19 20:15 36.5 C 89 18 149/77 H 94 07/24/19 20:05 37.0 C 91 H 14 142/71 H 97 07/24/19 19:55 37.1 C 96 H 21 132/79 99 07/24/19 19:45 37.1 C 97 H 12 137/83 100 07/24/19 19:37 37.1 C 101 H 16 112/87 100 07/24/19 18:23 37.7 C H 93 H 18 143/73 H 92 07/24/19 14:00 36.8 C 90 16 155/78 H 99 Pain Intensity Right Hip: Pain Intensity: 0 Notes Mental Status: alert / awake / arousable and participated in evaluation Nausea / Vomiting: adequately controlled Pain: adequately controlled Airway Patency, RR, SpO2: stable & adequate BP & HR: stable & adequate Hydration State: stable & adequate Anesthetic Complications: Pt Satisfied with anesthetic care
[2019-07-25 07:20] LABS: BUN Creatinine Ratio 14.8 (10-20); Calcium 7.8 mg/dl (8.5-10.1); Est GFR (African American) 89.9; Est GFR (Non-African American) 77.6; Potassium 3.6 mmol/L (3.5-5.1)
[2019-07-25] MEDS: DOCUSATE SODIUM 100 MG CAP PO SCH ×2 (08:27→20:29)
[2019-07-25] MEDS: MULTIVITAMIN TAB PO SCH (08:27)
[2019-07-25] MEDS: SODIUM CHLORIDE 0.9% 1000ML 1,000 ML IV SCH ×3 (08:28→18:55)
[2019-07-25] MEDS ORDERED: AMLODIPINE BESYLATE 5 MG TAB PO SCH (09:00)
[2019-07-25] MEDS ORDERED: LOSARTAN POTASSIUM 50 MG TAB PO SCH (09:00)
--- NOTE | 2019-07-25 11:48 | Hospitalist Progress Note ---
Date of Service July 25, 2019 Assessment & Plan (1) Failure of right total hip arthroplasty with dislocation of hip: * Right ASHLEY on 07/16/[address] Gunter. Patient had been putting on socks and dislocated her hip. Closed reduction performed in ER. Plans for OR this afternoon for ORIF with Dr. Gunter. Hx osteoporosis and just started fosamax weekly. * NT-ProBNP ordered last evening, >300 at 796. * EKG SR with non-specific IVCD, T wave abnormality, consider anterolateral ischemia -- patient without s/sx of chest pain, shortness of breath or anginal equivalent. No cardiac hx. Trop, repeat EKG normal * Pt is RCRI Class I risk for Intermediate Risk Orthopedic Surgery * PT/OT/pain management/DVT prophylaxis per primary team * Pre-op h/h 11.1/33.4 * Monitor CBC (2) Encounter for pre-operative examination: * As above (3) Hypertension: * Continue home losartan 50mg for today, but would hold tomorrow morning's dose * Continue home amlodipine * BP acceptable currently, 152/75 (4) GERD (gastroesophageal reflux disease): * Previously on PPI but discontinued due to resolution of symptoms. Had previoulsy been dx with NSAID induced ulcer. No s/sx currently. If develops, could consider adding PPI (5) Diabetes mellitus: * Last A1c 6.2 per primary care note. Not on any medications * BSG ACHS, ISS while inpatient (6) Asthma: * Hx bronchial asthma. Follows with Dr. Gilliam in [place] * Continue home arnuity ellipta * Monitor (7) Hyperlipidemia: * Hx. Chronic * Most recent lipid panel June 2019-- cholesterol 250, HDL 74, LDL 157, triglycerides 91 -- per note, patient had been diet controlled but admits to consuming more martínez that previously * Not on any stating currently, as she had been taking red yeast rice -- continue for now * Repeat Lipid panel as outpatient in the next two months -- would benefit from statin therapy if able to tolerate (8) DVT prophylaxis: * Per primary service Dispo: OR this afternoon. Patient previously discharged to home. Supervising Physician Co-Signing Physician Notes PA Supervision Note: I did not personally see or examine the patient today, but I verified all mdeel points of JACKY Phelps's assessment and plan with the following exceptions/additions: None Subjective Patient evaluated in bed this morning. Denies any pain at rest currently, but states she did just receive pain medication. She states she was in extreme pain prior to arrival to ER, and her pain was decreased after the reduction. She states she was seen by ortho this morning with plans for a repair. She states she does have some nausea but denies any vomiting. She states she received zofran with some improvement. Dry mouth, but using swabs to moisten her mouth. Denies fevers, chills, chest pain, shortness of breath, abdominal pain, vomiting, dysuria. Review of Systems Review of Systems: All systems reviewed & are unremarkable except as noted in HPI & below Physical Exam Constitutional: WD/WN, vitals as above no acute distress Eyes: + anicteric sclerae and PERRL Neck: trachea midline, no thyromegaly Respiratory: normal respiratory effort, lungs clear to auscultation Cardiovascular: RRR, no murmur, no edema 2+ dp, pt pulses bilaterally Gastrointestinal (Abdomen): normal bowel sounds, soft, nontender, no hepatosplenomegaly Musculoskeletal: RLE NVSI +EHL/FHL/TA/GS SILT grossly, +2 DP PT pulses bilaterally. Calves soft, nontender. Skin: no rashes, warm and dry Neurologic: PERRL, EOMI, accommodation nl, no face palsy, no dysarthria Psychiatric: A+Ox3, euthymic affect Lymphatic: no cervical or axillary lymphadenopathy Results & Data Vital Signs (Past 12 Hours) Vital Signs Temp Pulse Resp BP Pulse Ox 07/25/19 08:12 36.7 C 75 18 152/75 H 95 07/25/19 03:57 36.9 C 87 18 145/77 H 96 07/24/19 23:53 37.0 C 89 17 144/75 H 96 Laboratory Results 07/25/19 07/25/19 07/24/19 Range/Units 06:19 06:19 14:42 WBC 7.05 (4.8-10.8) K/uL RBC 3.63 L (4.2-5.4) M/uL Hgb 11.1 L (12.0-16.0) g/dL Hct 33.4 L (37-47) % MCV 92.0 (80-100) fL MCH 30.6 (25-34) pg MCHC 33.2 (32-36) g/dL RDW Std Deviation 45.4 (36.4-46.3) fL RDW Coeff of Lola 13.6 (11.5-14.5) % Plt Count 281 (130-400) K/uL MPV 10.6 H (7.4-10.4) fL PT 10.1 (9.0-12.0) Seconds INR 1.0 (0.9-1.1) Sodium 134 L (136-145) mmol/L Potassium 3.6 (3.5-5.1) mmol/L Chloride 102 (98-107) mmol/L Carbon Dioxide 27 (21-32) mmol/L Anion Gap 5.0 (3-11) BUN 10 (7-18) mg/dl Creatinine 0.68 (0.6-1.2) mg/dl Est Cr Clr Drug Dosing 53.0 ml/min Est GFR ( Amer) 89.9 Est GFR (Non-Af Amer) 77.6 BUN/Creatinine Ratio 14.8 (10-20) Glucose 141 H (70-99) mg/dl Calcium 7.8 L (8.5-10.1) mg/dl NT-Pro-B Natriuret Pep 796 (0-1800) pg/ml Blood Type Antibody Screen 07/24/19 07/24/19 07/24/19 Range/Units 14:42 14:42 14:42 WBC 8.43 (4.8-10.8) K/uL RBC 3.83 L (4.2-5.4) M/uL Hgb 11.9 L (12.0-16.0) g/dL Hct 34.9 L (37-47) % MCV 91.1 (80-100) fL MCH 31.1 (25-34) pg MCHC 34.1 (32-36) g/dL RDW Std Deviation 43.9 (36.4-46.3) fL RDW Coeff of Lola 13.4 (11.5-14.5) % Plt Count 256 (130-400) K/uL MPV 10.6 H (7.4-10.4) fL PT (9.0-12.0) Seconds INR (0.9-1.1) Sodium 132 L (136-145) mmol/L Potassium 3.7 (3.5-5.1) mmol/L Chloride 100 (98-107) mmol/L Carbon Dioxide 25 (21-32) mmol/L Anion Gap 7.0 (3-11) BUN 11 (7-18) mg/dl Creatinine 0.85 (0.6-1.2) mg/dl Est Cr Clr Drug Dosing 42.4 ml/min Est GFR ( Amer) 70.4 Est GFR (Non-Af Amer) 60.7 BUN/Creatinine Ratio 13.0 (10-20) Glucose 145 H (70-99) mg/dl Calcium 8.7 (8.5-10.1) mg/dl NT-Pro-B Natriuret Pep (0-1800) pg/ml Blood Type A Positive Antibody Screen NEGATIVE PG Care Time/CCT Total # of Minutes Spent Total Time Spent with Patient: Total time spent is greater than 50% in coordination of care (as documented) at patient's floor/unit and/or counseling patient:
[2019-07-25] MEDS ORDERED: GLUCOSE 10 TABS/TUBE PO PRN (11:53)
[2019-07-25] MEDS ORDERED: CARBOHYDRATES FOR HYPOGLYCEMIA PO PRN (11:53)
[2019-07-25] MEDS ORDERED: GLUCAGON FOR INJ 1 MG VIAL SQ PRN (11:53)
[2019-07-25] MEDS ORDERED: GLUCOSE 40% GEL 15 GM TUBE PO PRN (11:53)
[2019-07-25] MEDS ORDERED: DEXTROSE 50% 50 ML SYRINGE IV PRN (11:53)
[2019-07-25] MEDS: INSULIN ASPART 100 UNITS/ML 3 ML PEN SC SCH ×3 (12:29→21:19)
[2019-07-25] MEDS ORDERED: PROPOFOL IV EMULSION 10 MG/ML 20 ML VIAL IV ONE (15:21)
[2019-07-25] MEDS ORDERED: ONDANSETRON INJ 2 MG/ML 2 ML VIAL ONE (15:21)
[2019-07-25] MEDS ORDERED: DEXAMETHASONE SOD INJ 4 MG/ML VIAL ONE (15:21)
[2019-07-25] MEDS ORDERED: LIDOCAINE HCL 2% 2 ML VIAL/AMP(20MG/ML) INFIL ONE (15:21)
[2019-07-25] MEDS ORDERED: MIDAZOLAM HCL 1 MG/ML 2ML VIAL ONE (15:22)
[2019-07-25] MEDS ORDERED: BACITRACIN INJ 50,000 UNIT VIAL ONE (15:30)
--- NOTE | 2019-07-25 15:34 | Anesthesiology Consultation ---
Date of Service July 25, 2019 Assessment & Plan (1) Encounter for pre-operative examination: Chart Review Chart Review: Acceptable Risk for Surgery and Patient NOT seen in Pre Admission Testing Consults Requested none History Surgery Operation Date: 07/24/19 09:00 Proposed Procedures p Right Disslocated Hip Closed Reduction - Demetri Gunter DO Operation Date: 07/25/19 08:20 Proposed Procedures p Right Open Reduction Internal Fixation Anterior Hip with Capsular Repair - Demetri Gunter DO Operation Date: 07/25/19 15:30 Proposed Procedures p Total Hip Arthroplasty Uncemt Anterior with Capsular Repair(Right) - Demetri Gunter DO Height/Weight Height: 5 ft 2 in Weight: 74.4 kg Allergies Allergy/AdvReac Type Severity Reaction Status Date / Time No Known Allergies Allergy Mild Verified 07/16/19 07:48 Medications Home Medications Medication Instructions Recorded Confirmed Last Taken Arnuity Ellipta 1 inh INHALATION QAM 06/25/19 07/24/19 07/16/19 05:00 Calcium 600 + D(3) 1 cap PO BID 06/25/19 07/24/19 07/15/19 19:30 Ocuvite Adult 50 Plus 1 cap PO HS 06/25/19 07/24/19 07/02/19 Zyrtec 10 mg PO QAM PRN 06/25/19 07/24/19 07/02/19 amlodipine [Norvasc] 10 mg PO QAM 06/25/19 07/24/19 07/16/19 05:00 cholecalciferol (vitamin D3) 1,000 unit PO BID 06/25/19 07/24/19 07/15/19 19:30 [Vitamin D3] coQ10 (ubiquinol) 50 mg PO QAM 06/25/19 07/24/19 07/02/19 fluticasone propionate [Flonase 1 spray INTRANASAL QAM 06/25/19 07/24/19/01/26 05:00 Allergy Relief] losartan 50 mg PO QAM 06/25/19 07/24/19 07/15/19 08:00 magnesium 250 mg PO QAM 06/25/19 07/24/19 07/02/19 montelukast [Singulair] 10 mg PO PM 06/25/19 07/24/19 07/15/19 19:30 potassium gluconate 595 mg PO HS 06/25/19 07/24/19 07/15/19 19:30 red yeast rice 600 mg PO BID 06/25/19 07/24/19 07/02/19 acetaminophen 1,000 mg PO Q8 PRN #90 tab 07/18/19 07/24/19 Unknown aspirin [Ecotrin Low Strength] 81 mg PO BID #56 tab 07/18/19 07/24/19 Unknown celecoxib [Celebrex] 200 mg PO BID PRN #28 cap 07/18/19 07/24/19 Unknown sennosides [Senokot] 17.2 mg PO HS PRN #28 tab 07/18/19 07/24/19 Unknown tramadol 50 mg PO Q6H PRN #30 tab MDD 6 tabs 07/18/19 07/24/19 Unknown Active Medications Generic Name Dose Route Start Last Admin Trade Name Freq PRN Reason Stop Dose Admin Amlodipine Besylate 10 mg 07/25/19 09:00 07/25/19 08:28 Norvasc PO 08/24/19 08:59 10 mg QAM ARACELY Administration Docusate Sodium 100 mg 07/24/19 21:00 07/25/19 08:27 Colace PO 08/23/19 20:59 100 mg BID ARACELY Administration Hydromorphone HCl 0.25 mg 07/24/19 14:51 07/24/19 15:01 Dilaudid IV 08/07/19 14:50 0.25 mg Q4H PRN Administration Pain Sodium Chloride 1,000 mls @ 15 mls/hr 07/24/19 14:30 07/25/19 12:30 Nss 1000ml IV 08/23/19 14:29 Not Given .Q24H ARACELY Sodium Chloride 1,000 mls @ 100 mls/hr 07/24/19 20:50 07/25/19 08:28 Nss 1000ml IV 07/25/19 20:49 100 mls/hr .Q10H ARACELY Administration Insulin Aspart 0 units 07/25/19 12:15 07/25/19 12:29 Novolog Flexpen SC 08/24/19 12:14 Not Given ACHS ARACELY Losartan Potassium 50 mg 07/25/19 09:00 07/25/19 08:27 Cozaar PO 08/24/19 08:59 50 mg QAM ARACELY Administration Multivitamins 1 tab 07/25/19 09:00 07/25/19 08:27 Multivitamin Tab PO 08/24/19 08:59 1 tab QAM ARACELY Administration Ondansetron HCl 4 mg 07/24/19 20:21 07/25/19 01:47 Zofran IV 08/23/19 20:20 4 mg Q6H PRN Administration Nausea And Vomiting Sennosides 17.2 mg 07/24/19 21:00 07/24/19 21:33 Senokot PO 08/23/19 20:59 17.2 mg HS ARACELY Administration NPO Date Last Intake of Fluids: 07/24/19 Time Last Intake of Fluids: 07:10 Date Last Intake of Solids: 07/23/19 Time Last Intake of Solids: 17:00 Past Medical History Medical History Arthritis Asthma BRONCHIAL F/U DR JENN ALMEIDA. ARNUITY ELLIPTA DAILY, NO PRN INHALER. GERD (gastroesophageal reflux disease) Hiatal hernia Hyperlipidemia PCP MONITORING Hypertension Osteoporosis Urinary incontinence Exercise / Class Metabolic Activity II 4-5 Yardwork/Stairs/Walk up hill Past Surgical History Surgical History H/O parathyroidectomy History of appendectomy History of bladder surgery FOR INCONTINENCE History of colonoscopy History of esophagogastroduodenoscopy (EGD) History of hysterectomy TOTAL History of total knee replacement R/L History of total right hip replacement Past Anesthesia History No Hx of Anesthesia Complications and No Family Hx of Anesthesia Complications History of PONV No Hx of PONV and No Hx of Motion Sickness Social History Smoking Status: Never smoker Do You Dip or Chew Tobacco: No Hx Alcohol Use: Yes Alcohol type: wine alcohol intake frequency: holidays/special occasions only Hx Substance Use: No substance use type: does not use Physical Exam Vital Signs Last Vital Signs Temp 37.6 C H 07/25/19 15:09 Pulse 88 07/25/19 15:09 Resp 18 07/25/19 15:09 BP 146/78 H 07/25/19 15:09 Pulse Ox 92 07/25/19 15:09 Testing Laboratory Results 07/25/19 06:19 07/25/19 06:19 PT 10.1 Seconds (9.0-12.0) 07/24/19 14:42 INR 1.0 (0.9-1.1) 07/24/19 14:42 Blood Type A Positive 07/24/19 14:42 Antibody Screen NEGATIVE 07/24/19 14:42 07/25/19 12:20 POC Glucose 115 H Electrocardiogram Electrocardiogram Date: 06/26/19 Findings: + NSR @ (70 with occasional PVCs)
[2019-07-25] MEDS ORDERED: fentaNYL citrate 100 MCG/2 ML VIAL IV PRN (15:41)
[2019-07-25] MEDS ORDERED: HYDROmorphone INJ 1 MG/ML SYRINGE IV PRN (15:41)
[2019-07-25] MEDS ORDERED: ONDANSETRON INJ 2 MG/ML 2 ML VIAL IV PRN ×2 (15:41→18:43)
[2019-07-25] MEDS ORDERED: ATROPINE SULFATE 0.1 MG/ML 10ML SYR IV PRN (15:41)
[2019-07-25] MEDS ORDERED: ePHEDrine sulfate 50 MG/ML AMP IV PRN (15:41)
--- NOTE | 2019-07-25 15:51 | History & Physical Bridge Note ---
Date of Service July 25, 2019 History & Physical Bridge Note I have examined the patient, reviewed the History & Physical and in the interval since the performance of the History & Physical I have noted the following changes of clinical significance: no changes noted
--- NOTE | 2019-07-25 15:54 | Orthopedic Progress Note ---
Date of Service July 25, 2019 Assessment & Plan (1) Failure of right total hip arthroplasty with dislocation of hip: s/p closed reduction right total hip with residual subluxation I have indicated the patient for open reduction of right anterior total hip arthroplasty, head and liner exchange possible acetabular component revision. The risks, benefits, complications alternatives of the procedure were explained to the patient and family were present at bedside. These include however not limited to infections, blood clots, acute blood loss, injury to surrounding nerves, bone, vessels, soft tissue, arthrofibrosis, chronic pain, recurrent instability, hip dislocation, leg length discrepancies, need for additional surgery, loss of limb and loss of life. Alternatives include no surgery which could result and recurrent instability and worsening symptoms. Patient and family members wish to proceed with surgical intervention at this time and informed consent was obtained. Subjective Post Operative Progress Note Patient seen in preoperative holding, comfortable, denies complaints, pain well controlled, no acute issues. Review of Systems Review of Systems: All systems reviewed & are unremarkable except as noted in HPI & below Constitutional: as per Subjective / HPI Physical Exam Physical Exam: RLE NVSI +EHL/FHL/TA/GS SILT grossly, +2 DP pulse, compartments soft NT. Constitutional: WD/WN, vitals as above Results & Data Vital Signs (Past 12 Hours) Vital Signs Temp Pulse Resp BP Pulse Ox 07/25/19 15:09 37.6 C H 88 18 146/78 H 92 07/25/19 11:54 37.2 C 90 17 143/75 H 93 07/25/19 08:12 36.7 C 75 18 152/75 H 95 07/25/19 03:57 36.9 C 87 18 145/77 H 96
[2019-07-25] MEDS ORDERED: fentaNYL citrate 100 MCG/2 ML VIAL ONE (16:03)
[2019-07-25] MEDS ORDERED: GLYCOPYRROLATE 0.2 MG/ML VIAL ONE (16:44)
[2019-07-25] MEDS ORDERED: PHENYLEPHRINE HCL 10 MG/ML VIAL ONE (16:44)
[2019-07-25] MEDS ORDERED: NEOSTIGMINE METHYLSULFATE 5 MG/5 ML SYR ONE (16:44)
--- NOTE | 2019-07-25 16:47 | Electrocardiogram Report ---
Test Reason : Blood Pressure : / mmHG Vent. Rate : 088 BPM Atrial Rate : 088 BPM P-R Int : 168 ms QRS Dur : 134 ms QT Int : 416 ms P-R-T Axes : 077 001 031 degrees QTc Int : 503 ms Poor data quality, interpretation may be adversely affected Sinus rhythm with Fusion complexes Borderline ECG When compared with ECG of 26-JUN-2019 14:19, No significant change Confirmed by Burt Cuellar ([id number]) on 07/25/2019 4:47:31 PM Referred By: Demetri Gunter Confirmed By:Burt Cuellar
--- NOTE | 2019-07-25 17:45 | Electrocardiogram Report ---
Test Reason : Blood Pressure : / mmHG Vent. Rate : 088 BPM Atrial Rate : 088 BPM P-R Int : 162 ms QRS Dur : 090 ms QT Int : 366 ms P-R-T Axes : 039 -14 -01 degrees QTc Int : 442 ms Sinus rhythm with occasional Premature ventricular complexes and Fusion complexes Otherwise normal ECG When compared with ECG of 24-JUL-2019 21:00, (unconfirmed) Premature ventricular complexes are now Present Confirmed by Burt Cuellar ([id number] on 07/25/2019 5:44:37 PM Referred By: Demetri Gunter Confirmed By:Burt Cuellar
--- NOTE | 2019-07-25 17:49 | Post Operative Brief Note ---
Immediate Post Op Note v1 Date of Surgery July 25, 2019 Pre & Post Diagnosis Operation Date: 07/24/19 09:00 Pre-Op Diagnosis: Dislocated Right Total Hip Arthroplasty Post-Op Diagnosis: Dislocated Right Total Hip Arthroplasty Operation Date: 07/25/19 08:20 Pre-Op Diagnosis: Failure of Right Total Hip Arthroplasty with Dislocation of Hip; Status Post Closed Reduction Right Total Hip with Residual Subluxation Post-Op Diagnosis: Failure of Right Total Hip Arthroplasty with Dislocation of Hip; Status Post Closed Reduction Right Total Hip with Residual Subluxation Operation Date: 07/25/19 15:30 <No data on this case meets the specified criteria> I identified the patient and participated in the time-out.: Yes Procedure Operation Date: 07/24/19 09:00 Actual Procedures p Closed Reduction Right Total Hip Arthroplasty(Right) - Demetri Gunter DO Operation Date: 07/25/19 08:20 Actual Procedures p Open Reduction Internal Fixation Right Anterior Total Hip with Femoral Head and Liner Exchange(Right) - Demetri Gunter DO Operation Date: 07/25/19 15:30 <No data on this case meets the specified criteria> Surgeon Demetri Gunter DO [facility] Assistant Navigator none Estimated Blood Loss 55 Findings Consistent with Post-Op Diagnosis Drains Hemovac Drain Anesthesia Type General Complications none Disposition Disposition: Recovery Room Overlapping Procedure I was present for: the critical portions of procedure. I was immediately available: during the entire case. Back up surgeon: was not required during procedure.
--- NOTE | 2019-07-25 17:54 | Fluoroscopy Report ---
FL hip RT 1V HISTORY: 88 years-old Female ORIF RT ANTERIOR HIP right hip total joint arthroplasty. History of deg enerative joint disease COMPARISON: Pelvis and hip radiographs 07/24/2019 TECHNIQUE: 3 spot fluoroscopic images of the right hip were obtained utilizing 20.0 seconds fluorosco py time FINDINGS: Right hip total joint arthroplasty appears to be in satisfactory positioning. No acute fracture or re tained foreign body. Expected postsurgical soft tissue swelling and deep tissue air about the right h ip. There is at least moderate left hip osteoarthritis. IMPRESSION: Fluoroscopic assistance as above. Please see operative report for further details. ACT 112: Negative or not required by law. The above report was generated using voice recognition software. It may contain grammatical, syntax o r spelling errors. Electronically signed by: Bin Carr M.D. 07/25/2019 5:53 PM
--- NOTE | 2019-07-25 17:54 | Operative Report ---
Post Operative Report Pre & Post Diagnosis Operation Date: 07/24/19 09:00 Pre-Op Diagnosis: Dislocated Right Total Hip Arthroplasty Post-Op Diagnosis: Dislocated Right Total Hip Arthroplasty Operation Date: 07/25/19 08:20 Pre-Op Diagnosis: Failure of Right Total Hip Arthroplasty with Dislocation of Hip; Status Post Closed Reduction Right Total Hip with Residual Subluxation Post-Op Diagnosis: Failure of Right Total Hip Arthroplasty with Dislocation of Hip; Status Post Closed Reduction Right Total Hip with Residual Subluxation Operation Date: 07/25/19 15:30 <No data on this case meets the specified criteria> I identified the patient and participated in the time-out.: Yes Procedure Operation Date: 07/24/19 09:00 Actual Procedures p Closed Reduction Right Total Hip Arthroplasty(Right) - Demetri Gunter DO Operation Date: 07/25/19 08:20 Actual Procedures p Open Reduction Internal Fixation Right Anterior Total Hip with Femoral Head and Liner Exchange(Right) - Demetri Gunter DO Operation Date: 07/25/19 15:30 <No data on this case meets the specified criteria> Surgeon Demetri Gunter DO Truck Trailer Final Inspector none Estimated Blood Loss 55 Findings Consistent with Post-Op Diagnosis Specimens None Drains Hemovac drain superficial to fascia Anesthesia Type General Complications none Disposition Disposition: Recovery Room Indications Patient is an 88-year-old female who has recent PSHx for right anterior ASHLEY on 07/16/19. She had a normal postoperative recovery and was discharged home. The patient states that she was doing quite well at home without any problems. This morning she bent down to put on her socks. She feels that she was not overtly stretching to put the socks on and suddenly felt the hip dislocate. She had immediate pain in the right hip and groin and was unable to ambulate. She was seen at [facility] ED and a failed closed reduction was performed by the ED staff. The patient was then transferred to [facility] for further care. Repeat X-rays taken at [facility] confirmed dislocation of the right total hip with anterior superior position of the femoral head. The patient was taken to the OR on 07/24/19 for closed reduction of right total hip. The patient tolerated the procedure well however post reduction films demonstrated residual subluxation of the femoral head. I have indicated the patient for open reduction of right anterior total hip arthroplasty, head and liner exchange possible acetabular component revision. The risks, benefits, complications alternatives of the procedure were explained to the patient and family were present at bedside. These include however not limited to infections, blood clots, acute blood loss, injury to surrounding nerves, bone, vessels, soft tissue, arthrofibrosis, chronic pain, recurrent instability, hip dislocation, leg length discrepancies, need for additional surgery, loss of limb and loss of life. Alternatives include no surgery which could result and recurrent instability and worsening symptoms. Patient and family members wish to proceed with surgical intervention at this time and informed consent was obtained. Description of Procedure COMPONENTS USED: [employer] hip system: Femoral head 32+0, liner 50 x 32, 20 degree elevated liner DESCRIPTION OF PROCEDURE: Following satisfactory general anesthesia, the patient was placed supine on the OR table. The left leg was placed in the well leg gray and the right leg in the traction device. The right leg was prepared with ChloraPrep and draped sterilely. A surgical timeout was performed, patient identified and site ayse verified. Appropriate antibiotics were given. Incision was made in line with prior anterior incision. A standard anterior approach in the interval between the sartorius and tensor muscles was performed. Dissection was carried down through subcutaneous tissues. Electrocautery was utilized for hemostasis. We removed all previous suture with hemostat. Dissection was carried down to the prosthesis. The posterior leaf of the capsule was impinged between the head and the polyethylene liner. The hip was dislocated and femoral head removed. The capsule was cleared from the acetabular liner and then the liner was removed utilizing the liner removal tool. A trial liner with a 20 degree wall was inserted. Trial reduction with a +0 neck length head showed good soft tissue tension, leg lengths restored, and good fit and fill of the proximal canal using fluoroscopic landmarks. The hip was dislocated. The trial component was removed. The final implants, 5032 with a 20 degree elevated liner and a 32+0 femoral head was placed. The hip was irrigated with sterile saline solution and reduced. A Betadine soak was performed. After 3 minutes, the hip was once more irrigated with copious sterile saline solution with bacitracin. Jagruti-incisional soft tissue was injected utilizing [place] [employer] which includes a combination of Ropivicaine 0.5% 150mg, Bupivicaine 0.5%/Epinephrine 1:200,000 30ml, Toradol 30mg, Dexamethasone 4mg, Ketamine 10mg, Clonidine 100mcg and NSS 30ml solution. The capsule was then closed with 1-0 Vicryl interrupted figure of eight sutures. The fascia was closed with a running suture of #1 Vicryl. A Hemavac drain was placed superficial to fascial layer. The subcutaneous tissues were closed with 2-0 Vicryl and the skin was closed with elton. A dry dressing was placed which included prevena incisional vac, drain sponge, ABD and tape. The patient tolerated the procedure well and was transported to PACU in stable condition. Due to the complex nature of the procedure, the entire surgery was performed with the operational assistance of Darian Mederos PA-C. The children's nursery assistant, under direct supervision, was involved in the actual performance of all aspects of the surgical procedure including patient positioning, hemostasis, tissue retraction, instrument management and wound closure. I attest to the content of the Intraoperative Record and any orders documented therein. Any exceptions are noted below.
--- NOTE | 2019-07-25 18:24 | Orthopedic Progress Note ---
Date of Service July 25, 2019 Assessment & Plan (1) Failure of right total hip arthroplasty with dislocation of hip: Status post open reduction right anterior total hip with head and liner exchange -Ancef x24 -DVT prophylaxis: SCDs, teds, 81 mg ASA twice daily -Weight-bear as tolerated right lower extremity -Posterior hip precaution -PT/OT -Postoperative x-ray pending -A.m. labs -DC planning Subjective Post Operative Progress Note Patient seen sitting up in bed, comfortable, denies complaints, pain well controlled, no acute issues. Review of Systems Review of Systems: All systems reviewed & are unremarkable except as noted in HPI & below Constitutional: as per Subjective / HPI Physical Exam Physical Exam: RLE NVSI +EHL/FHL/TA/GS SILT grossly, +2 DP pulse, compartments soft NT, dressing cdi. Constitutional: WD/WN, vitals as above Results & Data Vital Signs (Past 12 Hours) Vital Signs Temp Pulse Pulse Resp BP Pulse Ox 07/25/19 18:10 90 16 151/85 H 100 07/25/19 18:02 36.7 C 86 12 167/73 H 99 07/25/19 15:44 36.9 C 91 H 20 142/77 H 95 07/25/19 15:09 37.6 C H 88 18 146/78 H 92 07/25/19 11:54 37.2 C 90 17 143/75 H 93 07/25/19 08:12 36.7 C 75 18 152/75 H 95
--- NOTE | 2019-07-25 18:31 | Anesthesiology Progress Note ---
Date of Service July 25, 2019 Anesthesia Post Procedure Vital Signs Vital Signs: Temp Pulse Pulse Resp BP Pulse Ox 07/25/19 18:20 36.7 C 91 H 17 147/87 H 100 07/25/19 18:10 90 16 151/85 H 100 07/25/19 18:02 36.7 C 86 12 167/73 H 99 07/25/19 15:44 36.9 C 91 H 20 142/77 H 95 07/25/19 15:09 37.6 C H 88 18 146/78 H 92 07/25/19 11:54 37.2 C 90 17 143/75 H 93 07/25/19 08:12 36.7 C 75 18 152/75 H 95 07/25/19 03:57 36.9 C 87 18 145/77 H 96 07/24/19 23:53 37.0 C 89 17 144/75 H 96 07/24/19 23:17 36.9 C 85 18 137/72 96 07/24/19 22:16 95 07/24/19 22:14 36.0 C L 92 H 18 145/71 H 89 L 07/24/19 21:15 37.1 C 86 17 133/68 90 07/24/19 20:48 37.0 C 90 17 139/70 92 07/24/19 20:15 36.5 C 89 18 149/77 H 94 07/24/19 20:05 37.0 C 91 H 14 142/71 H 97 07/24/19 19:55 37.1 C 96 H 21 132/79 99 07/24/19 19:45 37.1 C 97 H 12 137/83 100 07/24/19 19:37 37.1 C 101 H 16 112/87 100 Pain Intensity Right Hip: Pain Intensity: 0 Transfer of Care Handoff Completed per policy Notes Mental Status: alert / awake / arousable and participated in evaluation Patient Amnestic to Procedure: Yes Nausea / Vomiting: adequately controlled Pain: adequately controlled Airway Patency, RR, SpO2: stable & adequate BP & HR: stable & adequate Hydration State: stable & adequate Anesthetic Complications: no major complications apparent and Pt Satisfied with anesthetic care
[2019-07-25] MEDS ORDERED: METOCLOPRAMIDE HCL INJ 5 MG/ML 2 ML VIAL IV PRN (18:43)
[2019-07-25] MEDS ORDERED: MAGNESIUM HYDROXIDE SUSP 30 ML UDC PO PRN (18:43)
[2019-07-25] MEDS ORDERED: bisacodyL 10 MG SUPP PR PRN (18:43)
[2019-07-25] MEDS ORDERED: SODIUM CHLORIDE 0.9% 1000ML 1,000 ML IV SCH (18:43)
[2019-07-25] MEDS ORDERED: TRAMADOL HCL 50 MG TABLET PO PRN (18:43)
[2019-07-25] MEDS ORDERED: NALOXONE HCL 0.4 MG/1 ML VIAL/CARP IV PRN (18:43)
--- NOTE | 2019-07-25 18:49 | XRay Report ---
XR hip 1V RT w pelvis HISTORY: 88 years-old Female IN PACU - A/P PELVIS and LATERAL HIP right hip total joint arthroplast y COMPARISON: Pelvis and right hip radiographs 07/24/2019 TECHNIQUE: AP view of the pelvis with crosstable lateral view of the right hip FINDINGS: Satisfactory positioning of the right hip total joint arthroplasty without acute fracture, malalignme nt or retained foreign body. Lateral skin elton are noted along with expected postsurgical soft tis christa swelling with surgical drainage catheter. Moderate left hip osteoarthritis. IMPRESSION: Satisfactory alignment of the right hip total joint arthroplasty. ACT 112: Negative or not required by law. The above report was generated using voice recognition software. It may contain grammatical, syntax o r spelling errors. Electronically signed by: Bin Carr M.D. 07/25/2019 6:48 PM
[2019-07-25] MEDS: ASPIRIN 81 MG ECTAB PO SCH (20:28)
[2019-07-25] MEDS: SENNA 8.6 MG TAB PO SCH (20:29)
[2019-07-25] MEDS: PANTOprazole 40 MG TAB PO SCH (20:29)
[2019-07-25] MEDS ORDERED: DOCUSATE SODIUM 100 MG CAP PO SCH (21:00)
[2019-07-25] MEDS ORDERED: NON-FORMULARY MEDICATION (Red Yeast Rice 600 MG) PO SCH (21:00)
[2019-07-25] MEDS ORDERED: SENNA 8.6 MG TAB PO SCH (21:00)
[2019-07-25] MEDS: CEFAZOLIN 2000MG 2,000 MG/15 ML SYR IV SCH (23:49)
[2019-07-26 06:10] LABS: Hemoglobin 10.4 g/dL (12.0-16.0); Immature Granulocytes # (auto) 0.02 K/uL (0.00-0.02); Immature Granulocytes % (auto) 0.3 %; Lymphocytes # (auto) 0.88 K/uL (1.2-3.4); Lymphocytes % (auto) 12.3 %; Mean Corpuscular Hemoglobin 31.1 pg (25-34); Mean Corpuscular Hgb Conc 33.5 g/dL (32-36); Mean Corpuscular Volume 92.8 fL (80-100); Mean Platelet Volume 10.5 fL (7.4-10.4); Monocytes # (auto) 0.67 K/uL (0.11-0.59); Monocytes % (auto) 9.4 %; Neutrophils # (auto) 5.56 K/uL (1.4-6.5); Platelet Count 263 K/uL (130-400); RDW Coefficient of Variation 13.7 % (11.5-14.5); Red Blood Count 3.34 M/uL (4.2-5.4); White Blood Count 7.13 K/uL (4.8-10.8)
[2019-07-26 06:44] LABS: Est GFR (African American) 81.9; Est GFR (Non-African American) 70.7; Potassium 4.5 mmol/L (3.5-5.1)
--- NOTE | 2019-07-26 08:26 | Anesthesiology Progress Note ---
Date of Service July 26, 2019 Anesthesia Post Procedure Vital Signs Vital Signs: Temp Pulse Pulse Resp BP Pulse Ox 07/26/19 07:57 36.9 C 96 H 18 110/59 L 94 07/26/19 03:52 36.8 C 67 16 126/74 97 07/25/19 23:25 36.5 C 69 16 121/65 96 07/25/19 21:09 36.6 C 88 17 119/63 98 07/25/19 20:05 37.0 C 77 16 137/73 97 07/25/19 19:10 36.7 C 72 18 129/61 99 07/25/19 18:50 37 C 83 16 145/76 H 99 07/25/19 18:41 36.8 C 74 20 139/69 95 07/25/19 18:30 36.8 C 88 17 145/71 H 95 07/25/19 18:20 36.7 C 91 H 17 147/87 H 100 07/25/19 18:10 90 16 151/85 H 100 07/25/19 18:02 36.7 C 86 12 167/73 H 99 07/25/19 15:44 36.9 C 91 H 20 142/77 H 95 07/25/19 15:09 37.6 C H 88 18 146/78 H 92 07/25/19 11:54 37.2 C 90 17 143/75 H 93 Pain Intensity Right Hip: Pain Intensity: 0 Notes Mental Status: alert / awake / arousable and participated in evaluation Patient Amnestic to Procedure: Yes Nausea / Vomiting: adequately controlled Pain: adequately controlled Airway Patency, RR, SpO2: stable & adequate BP & HR: stable & adequate Hydration State: stable & adequate Anesthetic Complications: no major complications apparent and Pt Satisfied with anesthetic care
[2019-07-26] MEDS ORDERED: MULTIVITAMIN TAB PO SCH (09:00)
[2019-07-26] MEDS: CEFAZOLIN 2000MG 2,000 MG/15 ML SYR IV SCH (09:21)
[2019-07-26] MEDS: INSULIN ASPART 100 UNITS/ML 3 ML PEN SC SCH ×4 (09:21→21:41)
[2019-07-26] MEDS: MAGNESIUM OXIDE 400 MG TAB PO SCH (09:23)
[2019-07-26] MEDS: DOCUSATE SODIUM 100 MG CAP PO SCH ×2 (09:23→20:27)
[2019-07-26] MEDS: MULTIVITAMIN TAB PO SCH (09:23)
[2019-07-26] MEDS: ASPIRIN 81 MG ECTAB PO SCH ×2 (09:23→20:28)
[2019-07-26] MEDS: PANTOprazole 40 MG TAB PO SCH (09:23)
[2019-07-26] MEDS: FLUTICASONE PROPIONATE NA SPR 16 GM BTL SCH (09:37)
--- NOTE | 2019-07-26 12:52 | Hospitalist Progress Note ---
Date of Service July 26, 2019 Assessment & Plan (1) Failure of right total hip arthroplasty with dislocation of hip: * Right ASHLEY on 07/16/[address] Gunter. Patient had been putting on socks and dislocated her hip. Closed reduction performed in ER. Plans for OR this afternoon for ORIF with Dr. Gunter. Hx osteoporosis and just started fosamax weekly. * POD #1 s/p open reduction right anterior total hip with head and liner exchange with Dr. Gunter. EBL 55mL * PT/OT/pain management/DVT prophylaxis per primary team * Pre-op h/h 11.1/33.4 -- 10.4/31.0 on 07/25 -- secondary to acute blood loss following surgery * Monitor CBC (2) Acute blood loss anemia: * As above (3) Encounter for pre-operative examination: * As above (4) Hypertension: * BP currently 110/59 * Holding home amlodipine, losartan for now * Continue to monitor (5) GERD (gastroesophageal reflux disease): * On protonix currently as patient to be continued on ASA for DVT prophylaxis (6) Diabetes mellitus: * Last A1c 6.2 per primary care note. Not on any medications * BSG ACHS, ISS while inpatient. BSGs acceptable (7) Asthma: * Hx bronchial asthma. Follows with Dr. Gilliam in [place] * Continue home arnuity ellipta -- patient has home inhaler -- will need sent to pharmacy * Monitor (8) Hyperlipidemia: * Hx. Chronic * Most recent lipid panel June 2019-- cholesterol 250, HDL 74, LDL 157, triglycerides 91 -- per note, patient had been diet controlled but admits to consuming more martínez that previously * Not on any stating currently, as she had been taking red yeast rice -- continue for now * Repeat Lipid panel as outpatient in the next two months -- would benefit from statin therapy if able to tolerate (9) DVT prophylaxis: * Per primary service -- ASA, SCD, ani demetricee Dispo: patient to go to [facility] at discharge for acute rehab Thank you for asking medicine team to participate in the care of Mrs. Quintana. Medicine will follow along. Supervising Physician Co-Signing Physician Notes PA Supervision Note: I did not personally see or examine the patient today, but I verified all medel points of JACKY Phelps's assessment and plan with the following exceptions/additions: None Subjective Patient evaluated this morning. She is up in chair, resting comfortably. She denies any pain, but states her leg does feel "tight". She attributes this to the stockings. Passing gas. Drinking/eating without difficulty. No further nausea, but patient does not have much of an appetite. Denies any fever, chills, headache, blurry vision, chest pain, shortness of breath, abdominal pain, n/v/d/c. She states her lara was just removed, but she has not voided yet. Review of Systems Review of Systems: All systems reviewed & are unremarkable except as noted in HPI & below Physical Exam Constitutional: WD/WN, vitals as above no acute distress Eyes: + anicteric sclerae and PERRL Neck: trachea midline, no thyromegaly Respiratory: normal respiratory effort, lungs clear to auscultation Cardiovascular: RRR, no murmur, no edema Gastrointestinal (Abdomen): normal bowel sounds, soft, nontender, no hepatosplenomegaly Musculoskeletal: Head/Neck/Chest: normocephalic and head atraumatic Extremities: strength 5/5 throughout NVI 2+ dp, pt pulses bilaterally Calves non-tender to palpation Strength 5/5 Skin: no rashes, warm and dry Neurologic: PERRL, EOMI, accommodation nl, no face palsy, no dysarthria Psychiatric: A+Ox3, euthymic affect Lymphatic: no cervical or axillary lymphadenopathy Results & Data Vital Signs (Past 12 Hours) Vital Signs Temp Pulse Resp BP Pulse Ox 07/26/19 07:57 36.9 C 96 H 18 110/59 L 94 07/26/19 03:52 36.8 C 67 16 126/74 97 Laboratory Results 07/26/19 07/26/19 07/26/19 Range/Units 08:24 05:33 05:33 WBC 7.13 (4.8-10.8) K/uL RBC 3.34 L (4.2-5.4) M/uL Hgb 10.4 L (12.0-16.0) g/dL Hct 31.0 L (37-47) % MCV 92.8 (80-100) fL MCH 31.1 (25-34) pg MCHC 33.5 (32-36) g/dL RDW Std Deviation 46.0 (36.4-46.3) fL RDW Coeff of Lola 13.7 (11.5-14.5) % Plt Count 263 (130-400) K/uL MPV 10.5 H (7.4-10.4) fL Immature Gran % (Auto) 0.3 % Neut % (Auto) 78.0 % Lymph % (Auto) 12.3 % Morrill % (Auto) 9.4 % Eos % (Auto) 0.0 % Baso % (Auto) 0.0 % Immature Gran # (Auto) 0.02 (0.00-0.02) K/uL Neut # (Auto) 5.56 (1.4-6.5) K/uL Lymph # (Auto) 0.88 L (1.2-3.4) K/uL Morrill # (Auto) 0.67 H (0.11-0.59) K/uL Eos # (Auto) 0.00 (0-0.5) K/uL Baso # (Auto) 0.00 (0-0.2) K/uL Sodium 136 (136-145) mmol/L Potassium 4.5 D (3.5-5.1) mmol/L Chloride 105 (98-107) mmol/L Carbon Dioxide 28 (21-32) mmol/L Anion Gap 3.0 (3-11) BUN 14 (7-18) mg/dl Creatinine 0.75 (0.6-1.2) mg/dl Est Cr Clr Drug Dosing 48.0 ml/min Est GFR ( Amer) 81.9 Est GFR (Non-Af Amer) 70.7 BUN/Creatinine Ratio 19.0 (10-20) Glucose 132 H (70-99) mg/dl POC Glucose 118 H (70-99) mg/dl Calcium 8.0 L (8.5-10.1) mg/dl 07/25/19 07/25/19 07/25/19 Range/Units 21:14 19:06 12:20 WBC (4.8-10.8) K/uL RBC (4.2-5.4) M/uL Hgb (12.0-16.0) g/dL Hct (37-47) % MCV (80-100) fL MCH (25-34) pg MCHC (32-36) g/dL RDW Std Deviation (36.4-46.3) fL RDW Coeff of Lola (11.5-14.5) % Plt Count (130-400) K/uL MPV (7.4-10.4) fL Immature Gran % (Auto) % Neut % (Auto) % Lymph % (Auto) % Morrill % (Auto) % Eos % (Auto) % Baso % (Auto) % Immature Gran # (Auto) (0.00-0.02) K/uL Neut # (Auto) (1.4-6.5) K/uL Lymph # (Auto) (1.2-3.4) K/uL Morrill # (Auto) (0.11-0.59) K/uL Eos # (Auto) (0-0.5) K/uL Baso # (Auto) (0-0.2) K/uL Sodium (136-145) mmol/L Potassium (3.5-5.1) mmol/L Chloride (98-107) mmol/L Carbon Dioxide (21-32) mmol/L Anion Gap (3-11) BUN (7-18) mg/dl Creatinine (0.6-1.2) mg/dl Est Cr Clr Drug Dosing ml/min Est GFR ( Amer) Est GFR (Non-Af Amer) BUN/Creatinine Ratio (10-20) Glucose (70-99) mg/dl POC Glucose 188 H 130 H 115 H (70-99) mg/dl Calcium (8.5-10.1) mg/dl Diagnostic Findings XR hip 1V RT w pelvis FINDINGS: Satisfactory positioning of the right hip total joint arthroplasty without acute fracture, malalignment or retained foreign body. Lateral skin elton are noted along with expected postsurgical soft tissue swelling with surgical drainage catheter. Moderate left hip osteoarthritis. IMPRESSION: Satisfactory alignment of the right hip total joint arthroplasty. PG Care Time/CCT Total # of Minutes Spent Total Time Spent with Patient: Total time spent is greater than 50% in coordi nation of care (as documented) at patient's floor/unit and/or counseling patient:
[2019-07-26] MEDS: SODIUM CHLORIDE 0.9% 1000ML 1,000 ML IV SCH (14:14)
--- NOTE | 2019-07-26 17:12 | Orthopedic Progress Note ---
Date of Service July 26, 2019 Assessment & Plan (1) Failure of right total hip arthroplasty with dislocation of hip: POD 1 Status post open reduction right anterior total hip with head and liner exchange -Ancef x24 then dc. -DVT prophylaxis: SCDs, teds, 81 mg ASA twice daily -Weight-bear as tolerated right lower extremity -Posterior hip precaution -PT/OT -DC planning - Rehab facility upon DC Subjective POD 1 Pt doing well today. No complaints. Pain controlled. Denies SOB,CP,LH. States she is planning on going to Rehab upon dc. Physical Exam Physical Exam: Prevena dressing intact. HV present and functioning. No overt erythema around the dressing. Thigh is soft, NT. NV intact. Hip located. Results & Data Vital Signs (Past 12 Hours) Vital Signs Temp Pulse Resp BP BP Pulse Ox 07/26/19 15:31 36.9 C 67 17 131/70 98 07/26/19 07:57 36.9 C 96 H 18 110/59 L 94 Laboratory Results Laboratory Results WBC 7.13 K/uL (4.8-10.8) 07/26/19 05:33 RBC 3.34 M/uL (4.2-5.4) L 07/26/19 05:33 Hgb 10.4 g/dL (12.0-16.0) L 07/26/19 05:33 Hct 31.0 % (37-47) L 07/26/19 05:33 MCV 92.8 fL (80-100) 07/26/19 05:33 MCH 31.1 pg (25-34) 07/26/19 05:33 MCHC 33.5 g/dL (32-36) 07/26/19 05:33 RDW Std Deviation 46.0 fL (36.4-46.3) 07/26/19 05:33 RDW Coeff of Lola 13.7 % (11.5-14.5) 07/26/19 05:33 Plt Count 263 K/uL (130-400) 07/26/19 05:33 MPV 10.5 fL (7.4-10.4) H 07/26/19 05:33 Immature Gran % (Auto) 0.3 % 07/26/19 05:33 Neut % (Auto) 78.0 % 07/26/19 05:33 Lymph % (Auto) 12.3 % 07/26/19 05:33 [place] % (Auto) 9.4 % 07/26/19 05:33 Eos % (Auto) 0.0 % 07/26/19 05:33 Baso % (Auto) 0.0 % 07/26/19 05:33 Immature Gran # (Auto) 0.02 K/uL (0.00-0.02) 07/26/19 05:33 Neut # (Auto) 5.56 K/uL (1.4-6.5) 07/26/19 05:33 Lymph # (Auto) 0.88 K/uL (1.2-3.4) L 07/26/19 05:33 [place]imer # (Auto) 0.67 K/uL (0.11-0.59) H 07/26/19 05:33 Eos # (Auto) 0.00 K/uL (0-0.5) 07/26/19 05:33 Baso # (Auto) 0.00 K/uL (0-0.2) 07/26/19 05:33 PT 10.1 Seconds (9.0-12.0) 07/24/19 14:42 INR 1.0 (0.9-1.1) 07/24/19 14:42 Sodium 136 mmol/L (136-145) 07/26/19 05:33 Potassium 4.5 mmol/L (3.5-5.1) D 07/26/19 05:33 Chloride 105 mmol/L (98-107) 07/26/19 05:33 Carbon Dioxide 28 mmol/L (21-32) 07/26/19 05:33 Anion Gap 3.0 (3-11) 07/26/19 05:33 BUN 14 mg/dl (7-18) 07/26/19 05:33 Creatinine 0.75 mg/dl (0.6-1.2) 07/26/19 05:33 Est Cr Clr Drug Dosing 48.0 ml/min 07/26/19 05:33 Est GFR ( Amer) 81.9 07/26/19 05:33 Est GFR (Non-Af Amer) 70.7 07/26/19 05:33 BUN/Creatinine Ratio 19.0 (10-20) 07/26/19 05:33 Glucose 132 mg/dl (70-99) H 07/26/19 05:33 POC Glucose 108 mg/dl (70-99) H 07/26/19 12:36 Calcium 8.0 mg/dl (8.5-10.1) L 07/26/19 05:33 Troponin I < 0.015 ng/ml (0-0.045) 07/25/19 06:19 NT-Pro-B Natriuret Pep 796 pg/ml (0-1800) 07/25/19 06:19 Blood Type A Positive 07/24/19 14:42 Antibody Screen NEGATIVE 07/24/19 14:42
[2019-07-26] MEDS: SENNA 8.6 MG TAB PO SCH (20:28)
[2019-07-26] MEDS: ACETAMINOPHEN 325 MG TAB PO PRN (22:26)
[2019-07-27] MEDS: ACETAMINOPHEN 325 MG TAB PO PRN (04:57)
[2019-07-27 05:20] LABS: Basophils # (auto) 0.01 K/uL (0-0.2); Basophils % (auto) 0.1 %; Eosinophils # (auto) 0.22 K/uL (0-0.5); Eosinophils % (auto) 3.1 %; Hematocrit (blood only) 31.7 % (37-47); Hemoglobin 10.5 g/dL (12.0-16.0); Immature Granulocytes # (auto) 0.03 K/uL (0.00-0.02); Immature Granulocytes % (auto) 0.4 %; Lymphocytes # (auto) 2.08 K/uL (1.2-3.4); Lymphocytes % (auto) 28.9 %; Mean Corpuscular Hemoglobin 30.9 pg (25-34); Mean Corpuscular Hgb Conc 33.1 g/dL (32-36); Mean Corpuscular Volume 93.2 fL (80-100); Monocytes % (auto) 11.1 %; Neutrophils # (auto) 4.06 K/uL (1.4-6.5); Neutrophils % (auto) 56.4 %; Platelet Count 271 K/uL (130-400); RDW Coefficient of Variation 13.7 % (11.5-14.5); RDW Standard Deviation 46.6 fL (36.4-46.3)
[2019-07-27 06:11] LABS: BUN Creatinine Ratio 20.2 (10-20); Calcium 7.8 mg/dl (8.5-10.1); Creatinine Clr Calc Pharmacy 38.3 ml/min; Est GFR (African American) 62.3; Est GFR (Non-African American) 53.8; Potassium 3.7 mmol/L (3.5-5.1)
--- NOTE | 2019-07-27 07:47 | Orthopedic Progress Note ---
Date of Service July 27, 2019 Assessment & Plan (1) Failure of right total hip arthroplasty with dislocation of hip: POD 2 Status post open reduction right anterior total hip with head and liner exchange -DVT prophylaxis: SCDs, teds, 81 mg ASA twice daily -Weight-bear as tolerated right lower extremity -Posterior hip precaution -PT/OT -A.m. labs: Hemoglobin 10.5 -DC planning - Rehab. likely [facility] pending approval today. Supervising Physician Co-Signing Physician Notes I have personally seen and examined the patient, agree with above assessment plan. Subjective POD 2 Pt doing well today. No complaints. Pain controlled. Denies SOB,CP,LH. States she is planning on going to [facility] upon dc. Physical Exam Physical Exam: Right hip wound vac in tact and holding suction well. No drainage, no erythema. Toes/ ankle mobile. No calf tenderness. A&Ox3. Results & Data Vital Signs (Past 12 Hours) Vital Signs Temp Pulse Resp BP Pulse Ox 07/27/19 07:41 36.6 C 86 18 125/76 99 07/26/19 23:20 36.7 C 69 18 123/72 94 Laboratory Results 07/27/19 07/27/19 07/27/19 Range/Units 07:36 05:01 05:01 WBC 7.20 (4.8-10.8) K/uL RBC 3.40 L (4.2-5.4) M/uL Hgb 10.5 L (12.0-16.0) g/dL Hct 31.7 L (37-47) % MCV 93.2 (80-100) fL MCH 30.9 (25-34) pg MCHC 33.1 (32-36) g/dL RDW Std Deviation 46.6 H (36.4-46.3) fL RDW Coeff of Lola 13.7 (11.5-14.5) % Plt Count 271 (130-400) K/uL MPV 10.0 (7.4-10.4) fL Immature Gran % (Auto) 0.4 % Neut % (Auto) 56.4 % Lymph % (Auto) 28.9 % [place] % (Auto) 11.1 % Eos % (Auto) 3.1 % Baso % (Auto) 0.1 % Immature Gran # (Auto) 0.03 H (0.00-0.02) K/uL Neut # (Auto) 4.06 (1.4-6.5) K/uL Lymph # (Auto) 2.08 (1.2-3.4) K/uL [place] # (Auto) 0.80 H (0.11-0.59) K/uL Eos # (Auto) 0.22 (0-0.5) K/uL Baso # (Auto) 0.01 (0-0.2) K/uL Sodium 137 (136-145) mmol/L Potassium 3.7 D (3.5-5.1) mmol/L Chloride 106 (98-107) mmol/L Carbon Dioxide 28 (21-32) mmol/L Anion Gap 3.0 (3-11) BUN 19 H (7-18) mg/dl Creatinine 0.94 (0.6-1.2) mg/dl Est Cr Clr Drug Dosing 38.3 ml/min Est GFR ( Amer) 62.3 Est GFR (Non-Af Amer) 53.8 BUN/Creatinine Ratio 20.2 H (10-20) Glucose 107 H (70-99) mg/dl POC Glucose 102 H (70-99) mg/dl Calcium 7.8 L (8.5-10.1) mg/dl 07/26/19 07/26/19 07/26/19 Range/Units 20:31 17:06 12:36 WBC (4.8-10.8) K/uL RBC (4.2-5.4) M/uL Hgb (12.0-16.0) g/dL Hct (37-47) % MCV (80-100) fL MCH (25-34) pg MCHC (32-36) g/dL RDW Std Deviation (36.4-46.3) fL RDW Coeff of Lola (11.5-14.5) % Plt Count (130-400) K/uL MPV (7.4-10.4) fL Immature Gran % (Auto) % Neut % (Auto) % Lymph % (Auto) % [place] % (Auto) % Eos % (Auto) % Baso % (Auto) % Immature Gran # (Auto) (0.00-0.02) K/uL Neut # (Auto) (1.4-6.5) K/uL Lymph # (Auto) (1.2-3.4) K/uL [place] # (Auto) (0.11-0.59) K/uL Eos # (Auto) (0-0.5) K/uL Baso # (Auto) (0-0.2) K/uL Sodium (136-145) mmol/L Potassium (3.5-5.1) mmol/L Chloride (98-107) mmol/L Carbon Dioxide (21-32) mmol/L Anion Gap (3-11) BUN (7-18) mg/dl Creatinine (0.6-1.2) mg/dl Est Cr Clr Drug Dosing ml/min Est GFR ( Amer) Est GFR (Non-Af Amer) BUN/Creatinine Ratio (10-20) Glucose (70-99) mg/dl POC Glucose 136 H 94 108 H (70-99) mg/dl Calcium (8.5-10.1) mg/dl
[2019-07-27] MEDS: MAGNESIUM OXIDE 400 MG TAB PO SCH (08:01)
[2019-07-27] MEDS: ASPIRIN 81 MG ECTAB PO SCH (08:01)
[2019-07-27] MEDS: DOCUSATE SODIUM 100 MG CAP PO SCH (08:01)
[2019-07-27] MEDS: FLUTICASONE PROPIONATE NA SPR 16 GM BTL SCH (08:01)
[2019-07-27] MEDS: MULTIVITAMIN TAB PO SCH (08:01)
[2019-07-27] MEDS: PANTOprazole 40 MG TAB PO SCH (08:01)
[2019-07-27] MEDS: INSULIN ASPART 100 UNITS/ML 3 ML PEN SC SCH (08:07)
--- NOTE | 2019-07-27 12:32 | Hospitalist Progress Note ---
Date of Service July 27, 2019 Assessment & Plan (1) Failure of right total hip arthroplasty with dislocation of hip: * Right ASHLEY on 07/16/[address] Gunter. Patient had been putting on socks and dislocated her hip. Closed reduction performed in ER. Plans for OR this afternoon for ORIF with Dr. Gunter. Hx osteoporosis and just started fosamax weekly. * POD #2 s/p open reduction right anterior total hip with head and liner exchange with Dr. Gunter. EBL 55mL * PT/OT/pain management/DVT prophylaxis per primary team * Pre-op h/h 11.1/33.4 -- stable on repeat today at 10.5/31.7 (2) Acute blood loss anemia: * As above (3) Encounter for pre-operative examination: * As above (4) Hypertension: * BP currently 125/76 * Would recommend continuing to hold home amlodipine and losartan for today. Patient should check BP tomorrow prior to resuming BP medications. (5) GERD (gastroesophageal reflux disease): * On protonix currently as patient to be continued on ASA for DVT prophylaxis (6) Diabetes mellitus: * Last A1c 6.2 per primary care note. Not on any medications * BSG ACHS, ISS while inpatient. BSGs acceptable (7) Asthma: * Hx bronchial asthma. Follows with Dr. Gilliam in [place] * Continue home arnuity ellipta * Monitor (8) Hyperlipidemia: * Hx. Chronic * Most recent lipid panel June 2019-- cholesterol 250, HDL 74, LDL 157, triglycerides 91 -- per note, patient had been diet controlled but admits to consuming more martínez that previously * Not on any stating currently, as she had been taking red yeast rice -- continue for now * Repeat Lipid panel as outpatient in the next two months -- would benefit from statin therapy if able to tolerate (9) DVT prophylaxis: * Per primary service -- ASA, SCD, ani hose Dispo: patient to go to [facility] at discharge for acute rehab today Thank you for asking medicine team to participate in the care of Mrs. Quintana. Medicine will sign off. Supervising Physician Co-Signing Physician Notes PA Supervision Note: I did not personally see or examine the patient today, but I verified all medel points of JACKY Phelps's assessment and plan with the following exceptions/additions: None Subjective Patient evaluated this morning. States she feels ready for discharge to rehab. Has been passing gas, moving bowels, eating without difficulty. She states her pain has been well controlled with tylenol and that she would like to avoid tramadol as it makes her feel weird. Urinating without difficulty. Denies chest pain, shortness of breath, headache, visual disturbance, abdominal pain, n/v/d/c. Review of Systems Review of Systems: All systems reviewed & are unremarkable except as noted in HPI & below Physical Exam Constitutional: WD/WN, vitals as above no acute distress Eyes: + anicteric sclerae and PERRL Neck: trachea midline, no thyromegaly Respiratory: normal respiratory effort, lungs clear to auscultation Cardiovascular: RRR, no murmur, no edema Gastrointestinal (Abdomen): normal bowel sounds, soft, nontender, no hepatosplenomegaly Musculoskeletal: Head/Neck/Chest: normocephalic and head atraumatic Extremities: strength 5/5 throughout 2+ dp, pt bilaterally Skin: no rashes, warm and dry dressing to right hip, c/d/i Neurologic: PERRL, EOMI, accommodation nl, no face palsy, no dysarthria Psychiatric: A+Ox3, euthymic affect Lymphatic: no cervical or axillary lymphadenopathy Results & Data Vital Signs (Past 12 Hours) Vital Signs Temp Pulse Resp BP Pulse Ox 07/27/19 07:41 36.6 C 86 18 125/76 99 Laboratory Results 07/27/19 07/27/19 07/27/19 Range/Units 07:36 05:01 05:01 WBC 7.20 (4.8-10.8) K/uL RBC 3.40 L (4.2-5.4) M/uL Hgb 10.5 L (12.0-16.0) g/dL Hct 31.7 L (37-47) % MCV 93.2 (80-100) fL MCH 30.9 (25-34) pg MCHC 33.1 (32-36) g/dL RDW Std Deviation 46.6 H (36.4-46.3) fL RDW Coeff of Lola 13.7 (11.5-14.5) % Plt Count 271 (130-400) K/uL MPV 10.0 (7.4-10.4) fL Immature Gran % (Auto) 0.4 % Neut % (Auto) 56.4 % Lymph % (Auto) 28.9 % [place] % (Auto) 11.1 % Eos % (Auto) 3.1 % Baso % (Auto) 0.1 % Immature Gran # (Auto) 0.03 H (0.00-0.02) K/uL Neut # (Auto) 4.06 (1.4-6.5) K/uL Lymph # (Auto) 2.08 (1.2-3.4) K/uL [place] # (Auto) 0.80 H (0.11-0.59) K/uL Eos # (Auto) 0.22 (0-0.5) K/uL Baso # (Auto) 0.01 (0-0.2) K/uL Sodium 137 (136-145) mmol/L Potassium 3.7 D (3.5-5.1) mmol/L Chloride 106 (98-107) mmol/L Carbon Dioxide 28 (21-32) mmol/L Anion Gap 3.0 (3-11) BUN 19 H (7-18) mg/dl Creatinine 0.94 (0.6-1.2) mg/dl Est Cr Clr Drug Dosing 38.3 ml/min Est GFR ( Amer) 62.3 Est GFR (Non-Af Amer) 53.8 BUN/Creatinine Ratio 20.2 H (10-20) Glucose 107 H (70-99) mg/dl POC Glucose 102 H (70-99) mg/dl Calcium 7.8 L (8.5-10.1) mg/dl 07/26/19 07/26/19 07/26/19 Range/Units 20:31 17:06 12:36 WBC (4.8-10.8) K/uL RBC (4.2-5.4) M/uL Hgb (12.0-16.0) g/dL Hct (37-47) % MCV (80-100) fL MCH (25-34) pg MCHC (32-36) g/dL RDW Std Deviation (36.4-46.3) fL RDW Coeff of Lola (11.5-14.5) % Plt Count (130-400) K/uL MPV (7.4-10.4) fL Immature Gran % (Auto) % Neut % (Auto) % Lymph % (Auto) % [place] % (Auto) % Eos % (Auto) % Baso % (Auto) % Immature Gran # (Auto) (0.00-0.02) K/uL Neut # (Auto) (1.4-6.5) K/uL Lymph # (Auto) (1.2-3.4) K/uL [place] # (Auto) (0.11-0.59) K/uL Eos # (Auto) (0-0.5) K/uL Baso # (Auto) (0-0.2) K/uL Sodium (136-145) mmol/L Potassium (3.5-5.1) mmol/L Chloride (98-107) mmol/L Carbon Dioxide (21-32) mmol/L Anion Gap (3-11) BUN (7-18) mg/dl Creatinine (0.6-1.2) mg/dl Est Cr Clr Drug Dosing ml/min Est GFR ( Amer) Est GFR (Non-Af Amer) BUN/Creatinine Ratio (10-20) Glucose (70-99) mg/dl POC Glucose 136 H 94 108 H (70-99) mg/dl Calcium (8.5-10.1) mg/dl PG Care Time/CCT Total # of Minutes Spent Total Time Spent with Patient: Total time spent is greater than 50% in coordination of care (as documented) at patient's floor/unit and/or counseling patient:
[2019-07-27] MEDS: ONDANSETRON INJ 2 MG/ML 2 ML VIAL IV PRN (13:16)
--- NOTE | 2019-07-30 12:28 | Discharge Summary ---
Date of Service July 27, 2019 Admission HPI Per Admitting Provider Patient is an 88-year-old white female known to our practice who is status post right total hip arthroplasty by on very seventh of this year. She had a normal postoperative recovery and was discharged home. The patient states that she was doing quite well at home without any problems. This morning she bent down to put on her socks. She feels that she was not overtly stretching to put the socks on and suddenly felt the hip dislocate. She had immediate pain in the right hip and groin and was unable to ambulate. She was taken to the emergency room and [facility] where they attempted to do a close reduction of the hip. This was unsuccessful. Dr Gunter arranged for transfer to [facility] for further care. Currently she is lying in bed and having discomfort from the right hip. She is in no acute distress. She states that she did not fall after the dislocation. There was no loss of consciousness and there was no shortness of breath, chest pain, lightheadedness prior to or after the incident. Principal Diagnosis Open reduction right anterior total hip replacement, head and liner exchange. Discharge Exam RLE NVSI +EHL/FHL/TA/GS SILT grossly, +2 DP pulse, compartments soft NT, dressing cdi. Constitutional WD/WN, vitals as above Discharge Data Allergies Allergy/AdvReac Type Severity Reaction Status Date / Time No Known Allergies Allergy Mild Verified 07/16/19 07:48 Consultations 07/24/19 14:19 Consult Case Management - Discharge Planning Routine 07/24/19 20:21 Consult Case Management - Discharge Planning Routine Consult Hospitalist Routine 07/26/19 08:00 Consult Case Management - Discharge Planning Routine Procedures Performed Operation Date: 07/24/19 09:00 Actual Procedures p Closed Reduction Right Total Hip Arthroplasty(Right) - Demetri Gunter DO Operation Date: 07/25/19 08:20 Actual Procedures p Open Reduction Internal Fixation Right Anterior Total Hip with Femoral Head and Liner Exchange(Right) - Demetri Gunter DO Operation Date: 07/25/19 15:30 <No data on this case meets the specified criteria> Ordered Studies 07/24/19 19:00 FL fluoroscopy <1hr Routine FL hip RT 2-3V Routine 07/25/19 15:30 FL fluoroscopy <1hr Routine FL hip RT 1V Routine Hospital Course (1) Failure of right total hip arthroplasty with dislocation of hip: The patient is a 88 -year-old female who presents with acute onset of right hip pain secondary to dislocation of right total hip. Principle surgery performed on 07/16/19. The patient was seen at [facility] ED and a closed reduction was unsuccessful. The patient was subsequently transferred to [facility] for further inpatient treatment. On 07/24/19 the patient was taken to the OR and closed reduction performed. Post reduction films demonstrated residual subluxation of the femoral head. I indicated the patient for a open reduction of right anterior total hip arthroplasty with head and liner exchange, possible acetabular component revision, the risks, benefits and complications of the procedure include but not limited to infection, bleeding, damage to bone, nerves, vessels, surrounding soft tissue, may develop blood clots, loss of function, leg length discrepancy, dislocation, failure of the components, loosening of the components, the need for additional surgery and . The patient wished to proceed with surgery at this time and informed consent was obtained. Hospital Course: On 07/25/19 the patient was taken to the operating room, adequate anesthesia administered and underwent a open reduction right anterior total hip arthroplasty with head and liner exchange. The patient tolerated the procedure well and was taken to the PACU in stable condition. Post-operatively the patient was started on a DVT ppx medication and given appropriate IV antibiotics. Consults were placed to medical hospitalist, physical therapy, o ccupational therapy and case management. On POD#1, the patient did well overnight and their pain was well controlled. Labs were drawn and the Hgb was 10.4. The patient progressed well with PT. On POD#2, Dressings were changed at this time and the incision was clean, dry and intact. The patient continued to progress well with PT. Pain well controlled, no acute medical issues. Labs were drawn, Hgb was 10.5. The patients hospital stay was relatively uneventful and they were deemed stable by the orthopedic team and consultants to be discharged to [facility] on 07/27/19. Discharge Instructions: Upon discharge the patient may weight bear as tolerates through their operative extremity. They were instructed to keep the incision clean and dry at all times. The patient may shower but should not submerge the incision, avoid bathing, pools and hot tubes. The patient was given a script for pain medication and should take as instructed. The patient was given a script for DVT ppx 81mg ASA BID and should take as directed. The patient was instructed to not drive or travel for long distances until cleared to do so. If the patient develops any symptoms of fevers, chills, nausea, vomiting, increased redness, swelling, pain or drainage from the surgical site, they should notify the office and/or proceed to the nearest emergency room. The patient should follow up in 10-14 days after surgery for their routine post-operative follow-up appointment and should call the office to confirm the date and time. POD 2 Status post open reduction right anterior total hip with head and liner exchange -DVT prophylaxis: SCDs, teds, 81 mg ASA twice daily -Weight-bear as tolerated right lower extremity -Posterior hip precaution -PT/OT -A.m. labs: Hemoglobin 10.5 -DC planning - Rehab. likely [facility] pending approval today. Total Time Total Time Spent Total Time Spent (In Minutes): >60 minutes Discharge Plan Discharge Items Patient Disposition: Transfer Inpatient Rehab Fac Reason For Visit: DISLOCATED RT TOTAL HIP Discharge Diagnosis: Open reduction right total hip with head and liner exchange Condition on Discharge: Good Activity: Per Instructions section Lifting: Wait until after follow-up appointment Bathing: Keep incision dry Bathing Comment: No bathing, pools or hot tubs. Sexual Activity: Wait until after follow-up appointment Exercise/Sports: Wait until after follow-up appointment Driving/Machine Use: No driving Weightbearing: Full weightbearing Non-emergency contact: Primary Care Provider and Surgeon Call non-emergency contact if: you have any medication questions, your symptoms worsen, your pain is not controlled, your pain is worsening, your pain is unusual for you, your pain is concerning for you, you have a fever, your rectal temperature is above 100.4, your temperature is above 101, your wound has increased redness, your wound has increased drainage and your wound pain has increased Follow-up/Referrals: Joleen Hood DO [Primary Care Provider] - Diet: Regular Addtl Attending Provider Instructions: ACTIVITY RECOMMENDATIONS: SELF CARE INSTRUCTIONS AFTER TOTAL HIP REPLACEMENT : Direct Anterior Approach Until the incision and soft tissues around your hip have healed, there is a possibility that the hip prosthesis could dislocate. A. Hip flexion ( Up & Down out of chair or steps ) may be difficult. This is normal. Observe the following precautions to prevent dislocation: 1. Don't bend your hip greater than 90 degrees. 2. Avoid crossing your legs or ankles while standing or lying. 3. Sit with your feet placed 6 inches apart. 4. When sitting, keep your knees below your hips. Sit on a firm surface, avoid deep, soft chairs and couches. Use an elevated toilet seat in the bathroom. 5. Don't bend over at the waist. Use a long handled shoehorn and a sock aid to help you put on your shoes and socks. A sports physiologist can help you pick up truck driver objects that are too high or too low to reach. 6. Keep car riding to a minimum for at least one month after surgery. B. Numbness in front of the thigh is also normal for a few weeks. C. Use hand rails when walking on stairs. D. Wear low heeled shoes with non-slip soles. E. Be sure that your floors are free of things that could trip you - throw rugs, electrical cords, small objects. Avoid wet and waxed floors, especially with crutches and canes. F. Try to walk several times a day with rest periods between. G. Continue with all the exercises taught to you in the hospital. Again, make walking a part of your daily routine. SPECIAL CARE INSTRUCTIONS: VERY IMPORTANT TO READ AND REVIEW A. You may still be at risk for phlebitis and blood clots. 1. Wear surgical stockings (KEVIN hose) for 2 weeks after surgery to improve circulation and reduce swelling. 2. Take Aspirin 81mg twice daily for 4 weeks or as directed by your doctor. This is your blood thinner. 3. High risk patients may be prescribed a stronger blood thinner if necessary. 4. If you are on Coumadin normally, your family doctor/field worker should monitor your blood work. Expect a phone call the day of or the day after bloodwork is drawn to adjust your dosage. B. You must take antibiotics before having dental work, bladder, bowel and other surgery. Your doctor will provide you with a permanent card to carry describing precautions. C. Call [facility] if you have a fever, redness or swelling around the incision, cloudy drainage from incision, or sudden increase in pain in your hip, not relieved by your regular pain medication. D. Please call the office at if you have any concerns or questions about your operation or recovery. * YOU MAY SHOWER, NO TUB BATHS UNTIL CLEARED BY YOUR DOCTOR. - Keep an extra close eye on the top portion of your incision. Be sure to keep clean & dry. * WEAR KEVIN HOSE 20 HOURS PER DAY FOR 2 WEEKS. * YOU MAY PROGRESS FROM A WALKER, TO A CANE, TO INDEPENDENT AT YOUR OWN PACE. * MOST PATIENTS WILL HAVE HOME NURSING FOR THERAPY. IF YOU DECIDE TO DO OUTPATIENT PHYSICAL THERAPY, PLEASE SCHEDULE THIS 3 TIMES PER WEEK. *PREVENA incisional vac is a special dressing covering your incision. This dressing provides a sterile dry environment while you are healing. The dressing is to be left in place for 7 days post-operatively. Your home nurse or surgeon will remove. If you develop any redness or blisters or have any questions notify your surgeon immediately. There may be a small piece of suture material at one end of your incision. Do not pull or trim this. If it is bothersome or catching on clothing, you may cover it with a band-aid. FOLLOW UP VISIT: If appointment is not already scheduled: Please call [facility] to make a follow-up appointment for 2 weeks after your surgery at . Addtl Sql Database Administrator Provider Instructions: Please continue to hold your amlodipine and losartan for today. Check BP in AM prior to resuming. Recommend repeat lipid panel as outpatient in two months, or consideration of statin at discretion of primary care provider. Pending Studies at Discharge: No Stand-Alone Forms: My [facility] Skilled Items Patient informed of condition?: Yes DNR: No Discharge Level of Care: Acute rehab Communicable Disease: No Discharge Prognosis: Stable Lines: None Urinary Catheter: No Medications and DC Order Prescriptions: New acetaminophen [Mapap (acetaminophen)] 325 mg Tablet 650 mg PO Q4H PRN (Reason: fever or pain) 14 Days Qty: 30 RF: 0 aspirin [Ecotrin Low Strength] 81 mg Tablet,Delayed Release (Dr/Ec) 81 mg PO BID 30 Days Qty: 60 RF: 0 tramadol 50 mg Tablet 50 - 100 mg PO Q4H PRN (Reason: pain) Qty: 30 RF: 0 Continued losartan 50 mg Tablet 50 mg PO QAM RF: 0 amlodipine [Norvasc] 10 mg Tablet 10 mg PO QAM RF: 0 montelukast [Singulair] 10 mg Tablet 10 mg PO PM RF: 0 fluticasone propionate [Flonase Allergy Relief] 50 mcg/actuation Maynard,Suspension 1 spray INTRANASAL QAM RF: 0 Arnuity Ellipta 200 mcg/actuation Blister With Device 1 inh INHALATION QAM RF: 0 Calcium 600 + D(3) 600 mg calcium- 200 unit Capsule 1 cap PO BID RF: 0 potassium gluconate 595 mg (99 mg) Tablet 595 mg PO HS RF: 0 cholecalciferol (vitamin D3) [Vitamin D3] 1,000 unit Tablet,Chewable 1,000 unit PO BID RF: 0 Ocuvite Adult 50 Plus 250-5-1 mg Capsule 1 cap PO HS RF: 0 coQ10 (ubiquinol) 100 mg Capsule 50 mg PO QAM RF: 0 magnesium 250 mg Tablet 250 mg PO QAM RF: 0 red yeast rice 600 mg Capsule 600 mg PO BID RF: 0 Zyrtec 10 mg Capsule 10 mg PO QAM PRN (Reason: Congestion) RF: 0 celecoxib [Celebrex] 200 mg Capsule 200 mg PO BID PRN (Reason: Pain/inflammation) Qty: 28 RF: 0 sennosides [Senokot] 8.6 mg Tablet 17.2 mg PO HS PRN (Reason: constipation) Qty: 28 RF: 0 Discontinued aspirin [Ecotrin Low Strength] 81 mg Tablet,Delayed Release (Dr/Ec) 81 mg PO BID Qty: 56 RF: 0 tramadol 50 mg Tablet 50 mg PO Q6H MDD 6 tabs PRN (Reason: pain) Qty: 30 RF: 0 acetaminophen 500 mg Tablet 1,000 mg PO Q8 PRN (Reason: pain/fevers) Qty: 90 RF: 0 Discharge Orders: Discharge Order (Routine); Ordered 07/27/19 Ordered By: Abraham Wilson Admission Data Admit Date/Time: 07/24/19 14:07 Attending Provider: Demetri Gunter Admit Provider: Demetri Gunter Primary Care Provider: Joleen Hood Other Providers: Rhona Jimenez ; Fadi Hernandez ; Marcial Buchanan Natalie B. ; Selina Hood ; Ray Perez Other Interventions: Discharge Summary Assessment (RN) Last Done: 07/27/19 13:49 DC Date/Time DO NOT enter until pt leaves facility: 07/27/19 14:07
== END 2019-07-27 14:07 | DRG 467 ==
LOC: 3N 14:07

== ENCOUNTER 2019-10-05 14:08 | Inpatient (IN) ==
[2019-10-05] MEDS ORDERED: ONDANSETRON INJ 2 MG/ML 2 ML VIAL IV PRN (17:58)
[2019-10-05] MEDS ORDERED: MAGNESIUM HYDROXIDE SUSP 30 ML UDC PO PRN (17:58)
--- NOTE | 2019-10-05 18:08 | History & Physical Report ---
Date of Service October 05, 2019 Assessment & Plan (1) Failure of right total hip arthroplasty with dislocation of hip: s/p R ASHLEY on 07/[address] Riojas with revision on 07/25 after dislocation that was unable to be resolved conservatively Ortho c/s pending I spoke with Dr. Odom who states he will d/w Dr. Riojas and pt will be in the OR in the AM NPO after midnight CBC, PRP pending Pt states she finished 4 weeks of post-op aspirin prior, no longer on celebrex (2) Diabetes mellitus: Denies hx of DM, states no current medications A1c 6.2 (3) Hyperlipidemia: continue home meds (4) Asthma: No need for rescue inhaler for years continue home meds (5) Hypertension: continue home meds (6) GERD (gastroesophageal reflux disease): continue home meds (7) DVT prophylaxis: SCDs, as per ortho Admission and Anticipated Discharge Date Admission Date: October 05, 2019 History of Present Illness Primary Care Provider: Joleen Hood, DO 88 y/o F who was transferred to [facility] from the ED at [facility] for repeat R hip dislocation. Pt is s/p R ASHLEY on 07/16/[address] Gunter. She was transferred her and taken to the OR for revision on 07/25 after having her hip dislocate while she was putting on socks. She has continued to have issues with this hip and it again dislocated today. She was seen in the ED near her home and multiple attempts to correct this failed, so pt was transferred here for orthopedic consult. Pt states she has R hip pain with any movement, but is moderately comfortable when lying on her L side. She states that other than this issue, she has been in good health. Pt denies fever, SOB, chest pain, abd pain, n/c/d, LE swelling. She has been eating without issue. She did have mild nausea in the ED today, but this resolved with zofran. Pt states no changes to her medications since d/c other than she completed her course of aspirin and is no longer on celebrex. Allergies Allergy/AdvReac Type Severity Reaction Status Date / Time No Known Allergies Allergy Mild Verified 07/16/19 07:48 Home Medications Home Medications Medication Instructions Recorded Confirmed Type Arnuity Ellipta 1 inh INHALATION QAM 06/25/19 10/05/19 History Calcium 600 + D(3) 1 cap PO BID 06/25/19 10/05/19 History Ocuvite Adult 50 Plus 1 cap PO HS 06/25/19 10/05/19 History Zyrtec 10 mg PO QAM PRN 06/25/19 10/05/19 History amlodipine [Norvasc] 10 mg PO QAM 06/25/19 10/05/19 History cholecalciferol (vitamin D3) 1,000 unit PO BID 06/25/19 10/05/19 History [Vitamin D3] coQ10 (ubiquinol) 50 mg PO QAM 06/25/19 10/05/19 History fluticasone propionate [Flonase 1 spray INTRANASAL QAM 06/25/19 10/05/19 History Allergy Relief] losartan 50 mg PO QAM 06/25/19 10/05/19 History magnesium 250 mg PO QAM 06/25/19 10/05/19 History montelukast [Singulair] 10 mg PO PM 06/25/19 10/05/19 History potassium gluconate 595 mg PO HS 06/25/19 10/05/19 History red yeast rice 600 mg PO BID 06/25/19 10/05/19 History sennosides [Senokot] 17.2 mg PO HS PRN #28 tab 07/18/19 10/05/19 Rx Acetaminophen Extra Strength 1 - 2 tab-cap PO Q8 PRN 10/05/19 10/05/19 History Mucinex Sinus-Max 1 tab PO QAM PRN 10/05/19 10/05/19 History albuterol sulfate 2 puff INHALATION Q4 PRN 10/05/19 10/05/19 History meclizine 1 mg PO TID PRN 10/05/19 10/05/19 History Past Med/Surg History Medical History Arthritis Asthma BRONCHIAL F/U DR JENN ALMEIDA. ARNUITY ELLIPTA DAILY, NO PRN INHALER. GERD (gastroesophageal reflux disease) Hiatal hernia Hyperlipidemia PCP MONITORING Hypertension Osteoporosis Urinary incontinence Surgical History H/O parathyroidectomy History of appendectomy History of bladder surgery FOR INCONTINENCE History of colonoscopy History of esophagogastroduodenoscopy (EGD) History of hysterectomy TOTAL History of total knee replacement R/L History of total right hip replacement Social History Preferred Language: Kiswahili Communication Ability: Effective Block Feeder Required: No Beliefs That Will Affect Care: None marital status: Current Living Situation: Family Current Living Situation Comment: lives with son Other Information That Helps Us Care for You: No Feels Safe at Home: Yes Safety Concerns: Feels Safe At This Time Smoking Status: Never smoker Do You Dip or Chew Tobacco: No ; Second Hand Exposure: No ; Tobacco Cessation Education Requested by Patient: No Hx Alcohol Use: Yes Alcohol type: wine Hx Substance Use: No Review of Systems Review of Systems: Pertinent positives and negatives reviewed in HPI--all others negative Physical Exam Constitutional: WD/WN, vitals as above Eyes: normal visual weber by confrontation and + anicteric sclerae Neck: normal visual inspection and trachea midline Respiratory: normal respiratory effort, lungs clear to auscultation Cardiovascular: Rate/Rhythm: regular rate and regular rhythm Gastrointestinal (Abdomen): Inspection/Auscultation: abdomen not distended Percussion/Palpation: abdomen soft; abdomen nontender Musculoskeletal: Head/Neck/Chest: normocephalic and head atraumatic negative for edema, peripheral pulses intact Skin: no rashes, warm and dry Neurologic: awake; not confused Speech / Cognition: normal speech Psychiatric: A+Ox3, euthymic affect Results & Data Results & Data ([facility]) Vital Signs (Past 12 Hours) Vital Signs Temp Pulse Resp BP Pulse Ox 10/05/19 17:47 36.6 C 85 17 194/88 H 99 Code Status & VTE Plan Code Status Full code VTE Prophylaxis Plan VTE Prophylaxis will be ordered: Yes PG Care Time/CCT Total # of Minutes Spent Total Time Spent with Patient: Total time spent is greater than 50% in coordination of care (as documented) at patient's floor/unit and/or counseling patient: Coding Level of Care Code 76991 Initial Inpt Care Lvl 3 Diagnoses Failure of right total hip arthroplasty with dislocation of hip T84.020A Diabetes mellitus E11.9 Hyperlipidemia E78.5 Asthma J45.909 Hypertension I10 GERD (gastroesophageal reflux disease) K21.9 DVT prophylaxis Z29.9
[2019-10-05 18:56] LABS: Basophils # (auto) 0.01 K/uL (0-0.2); Basophils % (auto) 0.1 %; Hemoglobin 13.7 g/dL (12.0-16.0); Immature Granulocytes # (auto) 0.01 K/uL (0.00-0.02); Immature Granulocytes % (auto) 0.1 %; Lymphocytes # (auto) 1.43 K/uL (1.2-3.4); Lymphocytes % (auto) 14.9 %; Mean Corpuscular Hemoglobin 30.9 pg (25-34); Mean Corpuscular Hgb Conc 32.6 g/dL (32-36); Mean Corpuscular Volume 94.8 fL (80-100); Mean Platelet Volume 11.5 fL (7.4-10.4); Monocytes # (auto) 0.63 K/uL (0.11-0.59); Monocytes % (auto) 6.6 %; Neutrophils # (auto) 7.52 K/uL (1.4-6.5); Neutrophils % (auto) 78.3 %; Platelet Count 180 K/uL (130-400); RDW Coefficient of Variation 14.2 % (11.5-14.5); RDW Standard Deviation 49.6 fL (36.4-46.3); Red Blood Count 4.43 M/uL (4.2-5.4)
[2019-10-05 19:13] LABS: BUN Creatinine Ratio 20.6 (10-20); Calcium 8.6 mg/dl (8.5-10.1); Creatinine Clr Calc Pharmacy 44.1 ml/min; Est GFR (African American) 74.6; Est GFR (Non-African American) 64.4; Potassium 4.2 mmol/L (3.5-5.1)
[2019-10-05] MEDS ORDERED: ACETAMINOPHEN PO PRN (19:30)
[2019-10-05] MEDS ORDERED: SENNA 8.6 MG TAB PO PRN (19:30)
[2019-10-05] MEDS ORDERED: ALBUTEROL HFA 8 GM INHALER INH PRN (19:30)
[2019-10-05] MEDS ORDERED: MECLIZINE HCL 25 MG TAB PO PRN (19:38)
[2019-10-05] MEDS ORDERED: CETIRIZINE HCL 10 MG TABLET PO PRN (19:38)
[2019-10-05] MEDS ORDERED: NON-FORMULARY MEDICATION (Potassium Gluconate 595 MG) PO SCH (21:00)
[2019-10-05] MEDS: ACETAMINOPHEN 325 MG TAB PO PRN (21:09)
[2019-10-05] MEDS: MONTELUKAST SODIUM 10 MG TABLET PO SCH (21:09)
[2019-10-06] MEDS: MoRPHine SULFATE 2 MG/ML CARP IV PRN ×2 (03:21→07:31)
[2019-10-06] MEDS ORDERED: SODIUM CHLORIDE 0.9% 500 ML IV SCH (05:15)
[2019-10-06] MEDS ORDERED: SODIUM CHLORIDE 0.9% 1000ML 1,000 ML IV SCH (05:30)
[2019-10-06] MEDS: AMLODIPINE BESYLATE 5 MG TAB PO SCH (07:38)
[2019-10-06] MEDS: LOSARTAN POTASSIUM 50 MG TAB PO SCH (07:38)
[2019-10-06] MEDS: FLUTICASONE FUROATE 200MCG 14 PUFFS/INHALER INH SCH (07:39)
[2019-10-06] MEDS: FLUTICASONE PROPIONATE NA SPR 16 GM BTL SCH (07:39)
--- NOTE | 2019-10-06 07:59 | Anesthesiology Consultation ---
Date of Service October 06, 2019 Assessment & Plan (1) Failure of right total hip arthroplasty with dislocation of hip: Chart Review Chart Review: Acceptable Risk for Surgery Consults Requested none ASA ASA3 Proposed Anesthesia Anesthesia Type: General Risk / Benefits Reviewed With: PT / POA / Parent / Guardian, Accepts Plan and Informed Consent Obtained History Surgery Operation Date: 10/06/19 09:30 Proposed Procedures p Closed Reduction Hip(Right) - Piter Odom DO Height/Weight Height: 5 ft 2 in Weight: 73.3 kg Allergies Allergy/AdvReac Type Severity Reaction Status Date / Time No Known Allergies Allergy Mild Verified 07/16/19 07:48 Medications Home Medications Medication Instructions Recorded Confirmed Last Taken Arnuity Ellipta 1 inh INHALATION QAM 06/25/19 10/05/19 10/04/19 09:00 Calcium 600 + D(3) 1 cap PO BID 06/25/19 10/05/19 10/05/19 0900 Ocuvite Adult 50 Plus 1 cap PO HS 06/25/19 10/05/19 10/04/19 21:00 Zyrtec 10 mg PO QAM PRN 06/25/19 10/05/19 10/05/19 0900 amlodipine [Norvasc] 10 mg PO QAM 06/25/19 10/05/19 10/05/19 0900 cholecalciferol (vitamin D3) 1,000 unit PO BID 06/25/19 10/05/19 10/05/19 [Vitamin D3] 0900 coQ10 (ubiquinol) 50 mg PO QAM 06/25/19 10/05/19 10/04/19 09:00 fluticasone propionate [Flonase 1 spray INTRANASAL QAM 06/25/19 10/05/19 10/04/19 09:00 Allergy Relief] losartan 50 mg PO QAM 06/25/19 10/05/19 10/05/19 0900 magnesium 250 mg PO QAM 06/25/19 10/05/19 10/05/19 0900 montelukast [Singulair] 10 mg PO PM 06/25/19 10/05/19 10/04/19 21:00 potassium gluconate 595 mg PO HS 06/25/19 10/05/19 10/04/19 21:00 red yeast rice 600 mg PO BID 12/10/05/19 10/05/19 0900 sennosides [Senokot] 17.2 mg PO HS PRN #28 tab 07/18/19 10/05/19 10/04/19 21:00 Acetaminophen Extra Strength 1 - 2 tab-cap PO Q8 PRN 10/05/19 10/05/19 Unknown Mucinex Sinus-Max 1 tab PO QAM PRN 10/05/19 10/05/19 Unknown albuterol sulfate 2 puff INHALATION Q4 PRN 10/05/19 10/05/19 Unknown meclizine 1 mg PO TID PRN 10/05/19 10/05/19 Unknown Active Medications Generic Name Dose Route Start Last Admin Trade Name Freq PRN Reason Stop Dose Admin Acetaminophen 650 mg 10/05/19 17:58 10/05/19 21:09 Tylenol PO 11/04/19 17:57 650 mg Q4H PRN Administration pain/fever Amlodipine Besylate 10 mg 10/06/19 09:00 10/06/19 07:38 Norvasc PO 11/05/19 08:59 10 mg QAM ARACELY Administration Fluticasone Furoate 1 puffs 10/06/19 09:00 10/06/19 07:39 Arnuity Ellipta 200mcg INH 11/05/19 08:59 1 puffs QAM ARACELY Administration Fluticasone Propionate 1 sprays 10/06/19 09:00 10/06/19 07:39 Flonase NA 11/05/19 08:59 1 sprays QAM ARACELY Administration Sodium Chloride 1,000 mls @ 60 mls/hr 10/06/19 05:30 10/06/19 05:33 Nss 1000ml IV 11/05/19 05:29 60 mls/hr .[id number] ARACELY Administration Losartan Potassium 50 mg 10/06/19 09:00 10/06/19 07:38 Cozaar PO 11/05/19 08:59 50 mg QAM ARACELY Administration Montelukast Sodium 10 mg 10/05/19 21:00 10/05/19 21:09 Singulair PO 11/04/19 20:59 10 mg PM ARACELY Administration Morphine Sulfate 1 mg 10/06/19 00:30 10/06/19 07:31 Morphine Sulfate IV 10/20/19 00:29 1 mg Q4H PRN Administration Pain NPO Date Last Intake of Fluids: 10/05/19 Time Last Intake of Fluids: 23:59 Date Last Intake of Solids: 10/05/19 Time Last Intake of Solids: 23:59 Exercise / Class Metabolic Activity II 4-5 Yardwork/Stairs/Walk up hill Past Anesthesia History No Hx of Anesthesia Complications and No Family Hx of Anesthesia Complications History of PONV No Hx of PONV and No Hx of Motion Sickness Social History Smoking Status: Never smoker Do You Dip or Chew Tobacco: No Hx Alcohol Use: Yes Alcohol type: wine alcohol intake frequency: holidays/special occasions only Hx Substance Use: No substance use type: does not use Physical Exam Vital Signs Last Vital Signs Temp 36.8 C 10/06/19 07:35 Pulse 78 10/06/19 07:35 Resp 16 10/06/19 07:35 BP 147/83 H 10/06/19 07:35 Pulse Ox 96 10/06/19 07:35 Constitutional + obese ENMT Mouth: + dentures (Partial - out); no TMJ abnormality and oral opening not small Thyromental Distance: < 3.5 Finger Breadths (3) Mallampati Class: III bridge upper includes front and 2 side teeth Neck normal visual inspection; neck extension not limited Respiratory normal respiratory effort Auscultation: lungs clear to auscultation bilaterally Cardiovascular Rate/Rhythm: regular rate and regular rhythm Heart Sounds: no murmur Vessels: no carotid bruit Neurologic moves all extremities Psychiatric Orientation: alert and oriented x 3 Testing Laboratory Results 10/05/19 18:43 10/05/19 18:43 Electrocardiogram Date: 07/25/19 Findings: + NSR @ (88bpm with PVCs) Electrocardiogram Date: 06/26/19 Findings: + NSR @ (70 with occasional PVCs) Chest X-Ray Date: 06/26/19 Findings: + NAD Pulmonary Function Test Date: 05/07/19 No significant expiratory airflow obstruction. There is some, but not significant, improvement in airflow following inhaled bronchodilator. Final impression: Normal spirometry.
[2019-10-06] MEDS ORDERED: fentaNYL citrate 100 MCG/2 ML VIAL ONE ×2 (08:27→09:24)
[2019-10-06] MEDS ORDERED: ALBUT/IPRATROP 3MG/0.5MG NEB 3 ML VIAL INH PRN (08:44)
[2019-10-06] MEDS ORDERED: ONDANSETRON INJ 2 MG/ML 2 ML VIAL IV PRN ×2 (08:44→11:09)
[2019-10-06] MEDS ORDERED: ePHEDrine sulfate 50 MG/ML AMP IV PRN (08:44)
[2019-10-06] MEDS ORDERED: ATROPINE SULFATE 0.1 MG/ML 10ML SYR IV PRN (08:44)
[2019-10-06] MEDS ORDERED: MEPERIDINE HCL 25 MG/ML CARP/VIAL IV PRN (08:44)
[2019-10-06] MEDS ORDERED: MoRPHine SULFATE 10 MG/ML CARP/VIAL IV PRN (08:44)
[2019-10-06] MEDS ORDERED: fentaNYL citrate 100 MCG/2 ML VIAL IV PRN (08:44)
--- NOTE | 2019-10-06 08:45 | History & Physical Report ---
Date of Service October 06, 2019 Assessment & Plan (1) Failure of right total hip arthroplasty with dislocation of hip: ~2 months s/p revision right ASHLEY with femoral head and liner exchange with Dr. Gunter on 07.25.2019. Primary anterior ASHLEY done 07.16.2019. Plan for the OR today for closed reduction of the dislocated right ASHLEY. All potential risks, benefits, complications, alternatives, and rehab have been discussed with the patient and she wishes to proceed. We discussed possible hip abduction brace after the reduction. History of Present Illness Chief Complaint: right hip pain and deformity Primary Care Provider: Joleen Hood DO This is a patient who had an anterior right ASHLEY done by Dr. Gunter on 07.16.2019. She was doing well post operatively but had a dislocation ~1 week post op. She had a closed reduction done on 07.24.2019 then a femoral head/liner exchange on 07.25.[address] Gunter. Up until yesterday, she was doing well. Then, she had another hip dislocation. She was seen at [facility] and then transferred to [facility] for tx of the dislocation. Allergies Allergy/AdvReac Type Severity Reaction Status Date / Time No Known Allergies Allergy Mild Verified 07/16/19 07:48 Home Medications Home Medications Medication Instructions Recorded Confirmed Type Arnuity Ellipta 1 inh INHALATION QAM 06/25/19 10/05/19 History Calcium 600 + D(3) 1 cap PO BID 06/25/19 10/05/19 History Ocuvite Adult 50 Plus 1 cap PO HS 06/25/19 10/05/19 History Zyrtec 10 mg PO QAM PRN 06/25/19 10/05/19 History amlodipine [Norvasc] 10 mg PO QAM 06/25/19 10/05/19 History cholecalciferol (vitamin D3) 1,000 unit PO BID 06/25/19 10/05/19 History [Vitamin D3] coQ10 (ubiquinol) 50 mg PO QAM 06/25/19 10/05/19 History fluticasone propionate [Flonase 1 spray INTRANASAL QAM 06/25/19 10/05/19 History Allergy Relief] losartan 50 mg PO QAM 06/25/19 10/05/19 History magnesium 250 mg PO QAM 06/25/19 10/05/19 History montelukast [Singulair] 10 mg PO PM 06/25/19 10/05/19 History potassium gluconate 595 mg PO HS 06/25/19 10/05/19 History red yeast rice 600 mg PO BID 06/25/19 10/05/19 History sennosides [Senokot] 17.2 mg PO HS PRN #28 tab 07/18/19 10/05/19 Rx Acetaminophen Extra Strength 1 - 2 tab-cap PO Q8 PRN 10/05/19 10/05/19 History Mucinex Sinus-Max 1 tab PO QAM PRN 10/05/19 10/05/19 History albuterol sulfate 2 puff INHALATION Q4 PRN 10/05/19 10/05/19 History meclizine 1 mg PO TID PRN 10/05/19 10/05/19 History Past Med/Surg History Medical History Arthritis Asthma BRONCHIAL F/U DR JENN ALMEIDA. ARNUITY ELLIPTA DAILY, NO PRN INHALER. Failure of right total hip arthroplasty with dislocation of hip GERD (gastroesophageal reflux disease) Hiatal hernia Hyperlipidemia PCP MONITORING Hypertension Osteoporosis Urinary incontinence Surgical History H/O parathyroidectomy History of appendectomy History of bladder surgery FOR INCONTINENCE History of colonoscopy History of esophagogastroduodenoscopy (EGD) History of hysterectomy TOTAL History of total knee replacement R/L History of total right hip replacement Social History Preferred Language: Kenyan Communication Ability: Effective Cider Press Operator Required: No Beliefs That Will Affect Care: None marital status: Current Living Situation: Family Current Living Situation Comment: lives with son Other Information That Helps Us Care for You: No Feels Safe at Home: Yes Safety Concerns: Feels Safe At This Time Smoking Status: Never smoker Do You Dip or Chew Tobacco: No ; Second Hand Exposure: No ; Tobacco Cessation Education Requested by Patient: No Hx Alcohol Use: Yes Alcohol type: wine Hx Substance Use: No Physical Exam Constitutional: WD/WN, vitals as above no acute distress ENMT: external ear and nose normal, oropharynx normal Neck: trachea midline, no thyromegaly Respiratory: normal respiratory effort, lungs clear to auscultation Cardiovascular: Rate/Rhythm: regular rate and regular rhythm Gastrointestinal (Abdomen): normal bowel sounds, soft, nontender, no hepatosplenomegaly Musculoskeletal: Hip: + hip abnormal to inpsection (right hip: posterior dislocation with flexion and internal rotation of hip), + surgical incision (well healed right hip incision) and + limited ROM of hip (right); no skin erythema and no ecchymosis Skin: no rashes, warm and dry Neurologic: normal touch/pain/proprioception Psychiatric: A+Ox3, euthymic affect Speech: normal rate/rhythm/volume of speech Lymphatic: no cervical or axillary lymphadenopathy Results & Data Vital Signs (Past 12 Hours) Vital Signs Temp Pulse Resp BP BP Pulse Ox 10/06/19 07:35 36.8 C 78 16 147/83 H 96 10/06/19 05:10 131/70 10/05/19 23:17 36.8 C 79 16 143/76 H 95 Diagnostic Findings Right hip image from [facility] performed on 10.05.2019 were reviewed. Posteriorly dislocated right total hip arthroplasty. No fx's noted. Code Status & VTE Plan VTE Prophylaxis Plan VTE Prophylaxis will be ordered: Yes
[2019-10-06] MEDS ORDERED: LIDOCAINE HCL 2% 2 ML VIAL/AMP(20MG/ML) INFIL ONE (09:26)
[2019-10-06] MEDS ORDERED: PROPOFOL IV EMULSION 10 MG/ML 20 ML VIAL IV ONE (09:26)
[2019-10-06] MEDS ORDERED: SUCCINYLCHOLINE CHLORIDE 20 MG/ML 10 ML VIAL ONE (09:26)
[2019-10-06] MEDS ORDERED: ROCURONIUM BROMIDE 10 MG/ML 5 ML VIAL ONE (09:26)
--- NOTE | 2019-10-06 09:31 | History & Physical Bridge Note ---
Date of Service October 06, 2019 History & Physical Bridge Note I have examined the patient, reviewed the History & Physical and in the interval since the performance of the History & Physical I have noted the following changes of clinical significance: no changes noted
[2019-10-06] MEDS ORDERED: ONDANSETRON INJ 2 MG/ML 2 ML VIAL ONE (10:04)
--- NOTE | 2019-10-06 10:22 | Fluoroscopy Report ---
FL hip RT 2-3V CLINICAL HISTORY: CLOSED REDUCTION RT HIP COMPARISON STUDY: 07/25/2019 FLUOROSCOPY TIME: 2 minutes 13 seconds NUMBER OF FLUOROSCOPIC IMAGES: 5 FINDINGS: Anatomic alignment post closed reduction IMPRESSION: Anatomic alignment post closed reduction ACT 112: Negative or not required by law. The above report was generated using voice recognition software. It may contain grammatical, syntax or spelling errors. Electronically signed by: Abraham Terry M.D. 10/06/2019 10:20 AM
--- NOTE | 2019-10-06 10:31 | Anesthesiology Progress Note ---
Date of Service October 06, 2019 Anesthesia Post Procedure Vital Signs Vital Signs: Temp Pulse Pulse Pulse Resp BP BP 10/06/19 10:22 36.4 C L 96 H 16 168/89 H 10/06/19 07:35 36.8 C 78 16 147/83 H 10/06/19 05:10 131/70 10/05/19 23:17 36.8 C 79 16 143/76 H 10/05/19 18:45 74 173/81 H 10/05/19 17:47 36.6 C 85 17 194/88 H Pulse Ox 10/06/19 10:22 97 10/06/19 07:35 96 10/06/19 05:10 10/05/19 23:17 95 10/05/19 18:45 10/05/19 17:47 99 Pain Intensity Right Hip: Pain Intensity: 7 Transfer of Care Handoff Completed per policy Notes Mental Status: alert / awake / arousable Patient Amnestic to Procedure: Yes Nausea / Vomiting: adequately controlled Pain: adequately controlled Airway Patency, RR, SpO2: stable & adequate BP & HR: stable & adequate Hydration State: stable & adequate Anesthetic Complications: no major complications apparent and Pt Satisfied with anesthetic care
--- NOTE | 2019-10-06 11:06 | Post Operative Brief Note ---
Immediate Post Op Note v1 Date of Surgery October 06, 2019 Pre & Post Diagnosis Operation Date: 10/06/19 09:30 Pre-Op Diagnosis: Failure of Right Total Hip Arthroplasty with dislocation Post-Op Diagnosis: Failure of Right Total Hip Arthroplasty with dislocation I identified the patient and participated in the time-out.: Yes Procedure Operation Date: 10/06/19 09:30 Actual Procedures p Closed Reduction Right Hip Dislocation of Right Total Hip Arthroplasty(Right) - Piter Odom DO Surgeon Piter Odom DO Collator Operator Morgan Lindsey PA-C Estimated Blood Loss 0 Findings Consistent with Post-Op Diagnosis Specimens None Drains Peter Catheter (In place to arrival to OR) Anesthesia Type General Complications none Disposition Accompanied Patient To Recovery: Yes Disposition: Recovery Room
[2019-10-06] MEDS ORDERED: MAGNESIUM HYDROXIDE SUSP 30 ML UDC PO PRN (11:09)
[2019-10-06] MEDS ORDERED: NALOXONE HCL 0.4 MG/1 ML VIAL/CARP IV PRN (11:09)
[2019-10-06] MEDS ORDERED: HYDROCODONE/ACETAMOPHEN 5/325MG TAB PO PRN (11:09)
[2019-10-06] MEDS ORDERED: METOCLOPRAMIDE HCL INJ 5 MG/ML 2 ML VIAL IV PRN (11:09)
[2019-10-06] MEDS ORDERED: bisacodyL 10 MG SUPP PR PRN (11:09)
[2019-10-06] MEDS: MICONAZOLE NITRATE POWDER 43 GM EXT SCH ×2 (11:24→20:51)
[2019-10-06] MEDS: KETOROLAC TROMETHAMINE 15 MG/ML VIAL IV SCH ×3 (11:27→23:53)
[2019-10-06] MEDS: SODIUM CHLORIDE 0.9% 1000ML 1,000 ML IV SCH ×2 (11:29→20:53)
--- NOTE | 2019-10-06 11:43 | Operative Report (OR) ---
DATE OF OPERATION: 10/06/2019 PREOPERATIVE DIAGNOSIS: Right dislocated total hip arthroplasty. POSTOPERATIVE DIAGNOSIS: Right dislocated total hip arthroplasty. PROCEDURE: Right closed reduction of dislocated total hip arthroplasty. SURGEON: Piter Odom DO. ERP ENGINEER: Morgan Lindsey PA-C. Physician assistant signal maintainer was necessary and present during the entirety of the case due to the requirement for secondary assist to manage patient positioning, countertraction and assistance in reduction due to the nature of the reduction of the hip arthroplasty and to help prevent excessive torque which would produce deleterious effects and possible spiral fracture of the proximal or distal femur. The physician's assistant signal maintainer also assisted with transporting the patient from the operative table back to the transport bed and transport to recovery. ANESTHESIA: General endotracheal tube. SPECIMENS: None. DRAINS: None. COMPLICATIONS: None. BLOOD LOSS: Zero. PERTINENT HISTORY: This is an 88-year-old female who had a total hip arthroplasty performed by my partner, Dr. Demetri Gunter. Initially, she had an uncomplicated course; however, sustained a dislocation and subsequent revision due to inability to reduce the hip closed. She had a partial capsulectomy, open reduction and then had no symptoms until yesterday when she was trying to put some socks on in the seated position. She pushed the limb to get the sock to go on her foot and she felt a pop and pain with inability to ambulate. She was then transported to [facility], attempted several times to perform a closed reduction unsuccessfully. She was then transferred to [facility] for further care and management. The patient was then scheduled for surgery as indicated. All potential risks, benefits, complications, alternatives, rehab potential for incomplete relief of symptoms, need for further surgery, persistent pain, swelling, scarring, weakness, neurovascular injury, DVT, PE, , persistent dislocation or redislocation necessitating revision arthroplasty were discussed with the patient. The patient decided to proceed with the procedure as indicated. DESCRIPTION OF PROCEDURE: The patient was taken to the operative suite, placed supine on the operating table. I reviewed consent and identification of proper operative site. The patient was anesthetized, endotracheal tube was placed. The patient was placed in using the specialized pelvic countertraction table for anterior hip arthroplasty. All bony prominences and the padded post were properly padded and protected. Next, the physician assistant signal maintainer applied countertraction on the pelvis while gentle closed reduction manipulation was performed under live fluoroscopic assistance and a palpable clunk was first felt and then confirmed with AP, lateral and oblique views with fluoroscopy confirming concentric reduction of the femoral component into the acetabular component. Range of motion was performed noting a stable reduction under live fluoroscopic assistance. Next, the patient was then removed from the countertraction table. A knee immobilizer and an abduction pillow were then placed between the legs. She was then transferred to recovery in stable condition. I attest to the content of the Intraoperative Record and any orders documented therein. Any exception s are noted below.
--- NOTE | 2019-10-06 12:48 | XRay Report ---
XR hip 1V RT w pelvis CLINICAL HISTORY: IN PACU - A/P PELVIS and LATERAL HIP COMPARISON: None. DISCUSSION: Anatomic alignment posttotal right hip arthroplasty. No evidence of dislocation. Mild deg enerative changes left hip. There is no evidence for soft tissue swelling. IMPRESSION: Anatomic alignment post total right hip reduction. ACT 112: Negative or not required by law. The above report was generated using voice recognition software. It may contain grammatical, syntax or spelling errors. Electronically signed by: Abraham Terry M.D. 10/06/2019 12:46 PM
--- NOTE | 2019-10-06 15:14 | Hospitalist Progress Note ---
Date of Service October 06, 2019 Assessment & Plan (1) Failure of right total hip arthroplasty with dislocation of hip: s/p R ASHLEY on 07/[address] Riojas with revision on 07/25 after dislocation that was unable to be resolved conservatively Ortho c/s appreciated--> now s/p right hip closed reduction under anesthesia on 10/05 Remains in abductor pillow and awaiting special brace from Orthotics on Monday -PT/OT to eval after brace is fitted and then can likely be discharged to home after that -pain control -pt reports Ortho would like to eventually redo her ASHLEY afer COVD 19 settles down (2) Diabetes mellitus: Denies hx of DM, states no current medications, diet controlled Glucose here very well controlled, no meds -check HgbA1C in AM (3) Hyperlipidemia: on red yeast rice and CoQ10 at home-on hold here (4) Asthma: No need for rescue inhaler for years continue home albuterol prn, Arnuity, Zyrtec, Flonase, SIngulair (5) Hypertension: continue home amlodipine, losartan BPs controlled here -check BMP in AM (6) GERD (gastroesophageal reflux disease): not on meds at home, is occasional (7) DVT prophylaxis: SCDs, as per ortho Dispo-hopefully to home on Monday afternoon after hip brace fitted and has PT/OT evals Admission and Anticipated Discharge Date Admission Date: October 05, 2019 Anticipated date of discharge: 10/07/19 Subjective Feeling well now s/p closed hip reduction under anesthesia this AM. Is sara po, no N/V. Denies abd pain, no chest pain or SOB. No pain in hip. Last BM 2 days ago. Review of Systems Review of Systems: All systems reviewed & are unremarkable except as noted in HPI & below Physical Exam Constitutional: WD/WN, vitals as above Eyes: + anicteric sclerae ENMT: external ear and nose normal, oropharynx normal Neck: trachea midline, no thyromegaly Respiratory: normal respiratory effort, lungs clear to auscultation Cardiovascular: RRR, no murmur, no edema Chest (Breasts): Chest: normal inspection of chest Gastrointestinal (Abdomen): normal bowel sounds, soft, nontender, no hepatosplenomegaly Musculoskeletal: Extremities: + extremities abnormal to inspection (in leg abductor brace), no cyanosis and no clubbing Skin: no rashes, warm and dry Neurologic: moves all extremities and awake; no focal motor deficits Psychiatric: A+Ox3, euthymic affect Lymphatic: no lymphedema Results & Data Results & Data ([facility]) Vital Signs (Past 12 Hours) Vital Signs Temp Pulse Pulse Pulse Resp BP BP 10/06/19 13:59 80 16 126/68 10/06/19 13:14 80 16 103/61 10/06/19 12:22 84 16 128/69 10/06/19 11:46 75 18 129/66 10/06/19 11:09 36.7 C 72 16 138/72 10/06/19 10:50 36.4 C L 70 16 128/71 10/06/19 10:40 78 16 140/71 10/06/19 10:30 85 16 147/86 H 10/06/19 10:22 36.4 C L 96 H 16 168/89 H 10/06/19 07:35 36.8 C 78 16 147/83 H 10/06/19 05:10 131/70 Pulse Ox 10/06/19 13:59 96 10/06/19 13:14 921 H 10/06/19 12:22 94 10/06/19 11:46 91 10/06/19 11:09 98 10/06/19 10:50 94 10/06/19 10:40 97 10/06/19 10:30 97 10/06/19 10:22 97 10/06/19 07:35 96 10/06/19 05:10 Laboratory Results 10/05/19 10/05/19 Range/Units 18:43 18:43 WBC 9.60 (4.8-10.8) K/uL RBC 4.43 (4.2-5.4) M/uL Hgb 13.7 (12.0-16.0) g/dL Hct 42.0 (37-47) % MCV 94.8 (80-100) fL MCH 30.9 (25-34) pg MCHC 32.6 (32-36) g/dL RDW Std Deviation 49.6 H (36.4-46.3) fL RDW Coeff of Lola 14.2 (11.5-14.5) % Plt Count 180 (130-400) K/uL MPV 11.5 H (7.4-10.4) fL Immature Gran % (Auto) 0.1 % Neut % (Auto) 78.3 % Lymph % (Auto) 14.9 % [place] % (Auto) 6.6 % Eos % (Auto) 0.0 % Baso % (Auto) 0.1 % Immature Gran # (Auto) 0.01 (0.00-0.02) K/uL Neut # (Auto) 7.52 H (1.4-6.5) K/uL Lymph # (Auto) 1.43 (1.2-3.4) K/uL [place] # (Auto) 0.63 H (0.11-0.59) K/uL Eos # (Auto) 0.00 (0-0.5) K/uL Baso # (Auto) 0.01 (0-0.2) K/uL Sodium 138 (136-145) mmol/L Potassium 4.2 (3.5-5.1) mmol/L Chloride 108 H (98-107) mmol/L Carbon Dioxide 23 (21-32) mmol/L Anion Gap 6.0 (3-11) BUN 17 (7-18) mg/dl Creatinine 0.81 (0.6-1.2) mg/dl Est Cr Clr Drug Dosing 44.1 ml/min Est GFR ( Amer) 74.6 Est GFR (Non-Af Amer) 64.4 BUN/Creatinine Ratio 20.6 H (10-20) Glucose 137 H (70-99) mg/dl Calcium 8.6 (8.5-10.1) mg/dl PG Care Time/CCT Total # of Minutes Spent Total Time Spent with Patient: Total time spent is greater than 50% in coordination of care (as documented) at patient's floor/unit and/or counseling patient: Coding Level of Care Code 08221 Subseq Hosp Care Lvl 2 Diagnoses Failure of right total hip arthroplasty with dislocation of hip T84.020A Diabetes mellitus E11.9 Hyperlipidemia E78.5 Asthma J45.909 Hypertension I10 GERD (gastroesophageal reflux disease) K21.9 DVT prophylaxis Z29.9
[2019-10-06] MEDS: MONTELUKAST SODIUM 10 MG TABLET PO SCH (20:52)
[2019-10-06] MEDS: DOCUSATE SODIUM 100 MG CAP PO SCH (20:52)
[2019-10-06] MEDS ORDERED: SENNA 8.6 MG TAB PO SCH (21:00)
[2019-10-07 06:18] LABS: Basophils # (auto) 0.02 K/uL (0-0.2); Basophils % (auto) 0.4 %; Eosinophils # (auto) 0.16 K/uL (0-0.5); Eosinophils % (auto) 2.8 %; Hematocrit (blood only) 37.3 % (37-47); Hemoglobin 11.8 g/dL (12.0-16.0); Immature Granulocytes # (auto) 0.01 K/uL (0.00-0.02); Immature Granulocytes % (auto) 0.2 %; Lymphocytes # (auto) 1.85 K/uL (1.2-3.4); Lymphocytes % (auto) 32.9 %; Mean Corpuscular Hemoglobin 30.4 pg (25-34); Mean Corpuscular Hgb Conc 31.6 g/dL (32-36); Mean Corpuscular Volume 96.1 fL (80-100); Mean Platelet Volume 11.3 fL (7.4-10.4); Monocytes % (auto) 10.7 %; Neutrophils # (auto) 2.99 K/uL (1.4-6.5); Platelet Count 155 K/uL (130-400); RDW Coefficient of Variation 14.2 % (11.5-14.5); RDW Standard Deviation 50.1 fL (36.4-46.3); Red Blood Count 3.88 M/uL (4.2-5.4); White Blood Count 5.63 K/uL (4.8-10.8)
[2019-10-07] MEDS: KETOROLAC TROMETHAMINE 15 MG/ML VIAL IV SCH (06:19)
[2019-10-07 06:26] LABS: Estimated Average Glucose 120 mg/dl; Hemoglobin A1C 5.8 % (4.5-5.6)
[2019-10-07 07:10] LABS: BUN Creatinine Ratio 20.3 (10-20); Calcium 7.3 mg/dl (8.5-10.1); Creatinine Clr Calc Pharmacy 43.6 ml/min; Est GFR (African American) 73.5; Est GFR (Non-African American) 63.4; Potassium 4.2 mmol/L (3.5-5.1)
--- NOTE | 2019-10-07 08:25 | Anesthesiology Progress Note ---
Date of Service October 07, 2019 Anesthesia Post Procedure Vital Signs Vital Signs: Temp Pulse Pulse Pulse Resp BP Pulse Ox 10/07/19 07:11 36.9 C 73 18 134/73 94 10/07/19 03:26 36.8 C 81 16 146/81 H 96 10/06/19 23:53 72 155/76 H 10/06/19 23:09 36.9 C 75 16 152/85 H 95 10/06/19 20:00 36.8 C 71 16 117/67 93 10/06/19 15:45 36.3 C L 75 16 123/69 96 10/06/19 13:59 80 16 126/68 96 10/06/19 13:14 80 16 103/61 921 H 10/06/19 12:22 84 16 128/69 94 10/06/19 11:46 75 18 129/66 91 10/06/19 11:09 36.7 C 72 16 138/72 98 10/06/19 10:50 36.4 C L 70 16 128/71 94 10/06/19 10:40 78 16 140/71 97 10/06/19 10:30 85 16 147/86 H 97 10/06/19 10:22 36.4 C L 96 H 16 168/89 H 97 Pain Intensity Right Hip: Pain Intensity: 3 Notes Mental Status: alert / awake / arousable and participated in evaluation Patient Amnestic to Procedure: Yes Nausea / Vomiting: see Notes below Pain: adequately controlled Airway Patency, RR, SpO2: stable & adequate BP & HR: stable & adequate Hydration State: stable & adequate Anesthetic Complications: no major complications apparent and Pt Satisfied with anesthetic care
[2019-10-07] MEDS: FLUTICASONE FUROATE 200MCG 14 PUFFS/INHALER INH SCH (08:26)
[2019-10-07] MEDS: FLUTICASONE PROPIONATE NA SPR 16 GM BTL SCH (08:27)
[2019-10-07] MEDS: LOSARTAN POTASSIUM 50 MG TAB PO SCH (08:29)
[2019-10-07] MEDS: DOCUSATE SODIUM 100 MG CAP PO SCH (08:29)
[2019-10-07] MEDS: AMLODIPINE BESYLATE 5 MG TAB PO SCH (08:30)
--- NOTE | 2019-10-07 08:54 | Orthopedic Progress Note ---
Date of Service October 07, 2019 Assessment & Plan (1) Failure of right total hip arthroplasty with dislocation of hip: POD #1 s/p closed reduction right hip dislocation ~2 months s/p revision right ASHLEY with femoral head and liner exchange with Dr. Gunter on 07.25.2019. Primary anterior ASHLEY done 07.16.2019. She may WBAT RLE but must wear the knee immobilizer and the abduction pillow at this time. Hopeful to have the hip abduction brace fitted today. If the brace is fitted, the patient may be discharged today and follow up with Dr. Gunter in 10-14 days for re-evaluation. PT/OT today. Admission and Anticipated Discharge Date Admission Date: October 05, 2019 Anticipated date of discharge: 10/07/19 Supervising Physician Co-Signing Physician Notes Patient seen and examined today. Agree with above assessment and plan. PE: RLE NVSI +EHL/FHL/TA/GS, SILT grossly, + 2 DP pulse, compartment soft NT A/P: s/p closed reduction right total hip, POD#1 Discussed with patient continued conservative treatment vs revision acetabulum to constrained liner. Would prefer to avoid any non-emergent surgical intervention at this time due to coronavirus pandemic. I felt this was reasonable option at this time, will need abduction brace. -WBAT RLE -Posterior hip precautions -PT/OT - patient reports she did not participate -Abduction brace may be removed and, abduction pillow between legs at night or at rest -follow up in office 1-2 weeks, Subjective No complaints of pain today. Overall, feels well. Denies SOB, LH, CP. Main complaint is having to wear the knee immobilizer and abduction pillow at all times. Review of Systems Review of Systems: All systems reviewed & are unremarkable except as noted in HPI & below Constitutional: as per Subjective / HPI Physical Exam Constitutional: WD/WN, vitals as above no acute distress ENMT: external ear and nose normal, oropharynx normal Neck: trachea midline, no thyromegaly Respiratory: normal respiratory effort, lungs clear to auscultation Cardiovascular: Rate/Rhythm: regular rate and regular rhythm Gastrointestinal (Abdomen): normal bowel sounds, soft, nontender, no hepatosplenomegaly Musculoskeletal: Hip: + surgical incision (well healed right hip incision) and + limited ROM of hip (right); hip normal to inspection (right hip: located s/p reduction. ), no skin erythema and no ecchymosis Skin: no rashes, warm and dry Neurologic: normal touch/pain/proprioception Psychiatric: A+Ox3, euthymic affect Speech: normal rate/rhythm/volume of speech Lymphatic: no cervical or axillary lymphadenopathy Results & Data ([facility]) Vital Signs (Past 12 Hours) Vital Signs Temp Pulse Pulse Resp BP Pulse Ox 10/07/19 07:11 36.9 C 73 18 134/73 94 10/07/19 03:26 36.8 C 81 16 146/81 H 96 10/06/19 23:53 72 155/76 H 10/06/19 23:09 36.9 C 75 16 152/85 H 95 Diagnostic Findings Post reduction films reviewed that shows a right ASHLEY that has been reduced and well aligned.
[2019-10-07] MEDS ORDERED: MULTIVITAMIN TAB PO SCH (09:00)
[2019-10-07] MEDS: MICONAZOLE NITRATE POWDER 43 GM EXT SCH (10:20)
--- NOTE | 2019-10-07 16:43 | Discharge Summary ---
Date of Service October 07, 2019 Admission HPI Per Admitting Provider 88 y/o F who was transferred to [facility] from the ED at [facility] for repeat R hip dislocation. Pt is s/p R ASHLEY on 07/16/[address] Gunter. She was transferred her and taken to the OR for revision on 07/25 after having her hip dislocate while she was putting on socks. She has continued to have issues with this hip and it again dislocated today. She was seen in the ED near her home and multiple attempts to correct this failed, so pt was transferred here for orthopedic consult. Pt states she has R hip pain with any movement, but is moderately comfortable when lying on her L side. She states that other than this issue, she has been in good health. Pt denies fever, SOB, chest pain, abd pain, n/c/d, LE swelling. She has been eating without issue. She did have mild nausea in the ED today, but this resolved with zofran. Pt states no changes to her medications since d/c other than she completed her course of aspirin and is no longer on celebrex. Admission Exam Per Admitting Provider Constitutional: WD/WN, vitals as above Eyes: normal visual weber by confrontation and + anicteric sclerae Neck: normal visual inspection and trachea midline Respiratory: normal respiratory effort, lungs clear to auscultation Cardiovascular: Rate/Rhythm: regular rate and regular rhythm Gastrointestinal (Abdomen): Inspection/Auscultation: abdomen not distended Percussion/Palpation: abdomen soft; abdomen nontender Musculoskeletal: Head/Neck/Chest: normocephalic and head atraumatic negative for edema, peripheral pulses intact Skin: no rashes, warm and dry Neurologic: awake; not confused Speech / Cognition: normal speech Psychiatric: A+Ox3, euthymic affect Principal Diagnosis Total hip replacement dislocation Discharge Exam Constitutional WD/WN, vitals as above no acute distress Eyes + anicteric sclerae; normal pupil size ENMT external ear and nose normal, oropharynx normal Neck normal visual inspection and trachea midline Respiratory normal respiratory effort, lungs clear to auscultation Cardiovascular Rate/Rhythm: regular rate and regular rhythm Chest (Breasts) Chest: normal inspection of chest Gastrointestinal (Abdomen) Inspection/Auscultation: normal bowel sounds; abdomen not distended Percussion/Palpation: abdomen soft; abdomen nontender, no guarding and abdomen not rigid Musculoskeletal Extremities: + extremities abnormal to inspection (in leg abductor brace) Skin no rashes, warm and dry Psychiatric A+Ox3, euthymic affect Discharge Data Allergies Allergy/AdvReac Type Severity Reaction Status Date / Time No Known Allergies Allergy Mild Verified 07/16/19 07:48 Consultations 10/05/19 17:58 Consult Orthopedic Surgery Routine 10/05/19 18:01 Consult Case Management - Discharge Planning Routine 10/07/19 08:00 Consult Case Management - Discharge Planning Routine Procedures Performed Operation Date: 10/06/19 09:30 Actual Procedures p Closed Reduction Right Hip Dislocation of Right Total Hip Arthroplasty(Right) - Piter Odom DO Ordered Studies 10/06/19 07:00 FL fluoroscopy <1hr Routine FL hip RT 2-3V Routine Hospital Course (1) Failure of right total hip arthroplasty with dislocation of hip: Catherine Quintana is an 88 year old female admitted to [facility] from October 04 to 2019 due to dislocation of your right total hip arthroplasty. This was treated with closed reduction under general anesthetic performed by Dr Odom on October 06 2019. She was fitted with a brace post operatively and was cleared by physical and occupation therapy for discharge. She should follow up with Dr. Gunter in 10-14 days for re- evaluation. (2) Hyperlipidemia: (3) Asthma: (4) Hypertension: (5) GERD (gastroesophageal reflux disease): Total Time Total Time Spent Total Time Spent (In Minutes): 35 Total Time Includes: Examination of the Patient, Discharge Planning, Medication Reconciliation and Communication With Other Providers (PT/OT/RN) Discharge Plan Discharge Items Patient Disposition: Home - Self-Care Reason For Visit: S/P HIP SURGERY,HIP DISLOCATION Discharge Diagnosis: Total hip replacement dislocation Activity: Per Instructions section Non-emergency contact: Surgeon Call non-emergency contact if: you have any medication questions and your symptoms worsen Follow-up/Referrals: Demetri Gunter DO [Physician] - (10-14 days) Joleen Hood DO [Primary Care Provider] - (No follow up required.) Diet: Carb Consistent or DM2 Addtl Attending Provider Instructions: You were admitted to [facility] from October 04 to 2019 due to dislocation of your right total hip arthroplasty. This was treated with closed reduction under general anesthetic performed by Dr Odom on October 06 2019. You were fitted with a brace post operatively. Please follow guidance from physical and occupational therapy regarding reducing your risk of further dislocations. Please follow up with Dr. Gunter in 10-14 days for re-evaluation. Pending Studies at Discharge: No Stand-Alone Forms: My [facility] [employer], Smoking Cessation Medications and DC Order Prescriptions: Continued losartan 50 mg Tablet 50 mg PO QAM RF: 0 amlodipine [Norvasc] 10 mg Tablet 10 mg PO QAM RF: 0 montelukast [Singulair] 10 mg Tablet 10 mg PO PM RF: 0 fluticasone propionate [Flonase Allergy Relief] 50 mcg/actuation [place],Suspension 1 spray INTRANASAL QAM RF: 0 Arnuity Ellipta 200 mcg/actuation Blister With Device 1 inh INHALATION QAM RF: 0 Calcium 600 + D(3) 600 mg calcium- 200 unit Capsule 1 cap PO BID RF: 0 potassium gluconate 595 mg (99 mg) Tablet 595 mg PO HS RF: 0 cholecalciferol (vitamin D3) [Vitamin D3] 1,000 unit Tablet,Chewable 1,000 unit PO BID RF: 0 Ocuvite Adult 50 Plus 250-5-1 mg Capsule 1 cap PO HS RF: 0 coQ10 (ubiquinol) 100 mg Capsule 50 mg PO QAM RF: 0 magnesium 250 mg Tablet 250 mg PO QAM RF: 0 red yeast rice 600 mg Capsule 600 mg PO BID RF: 0 Zyrtec 10 mg Capsule 10 mg PO QAM PRN (Reason: Congestion) RF: 0 sennosides [Senokot] 8.6 mg Tablet 17.2 mg PO HS PRN (Reason: constipation) Qty: 28 RF: 0 Acetaminophen Extra Strength tablet 1 - 2 tab-cap PO Q8 PRN (Reason: Pain) RF: 0 meclizine 25 mg Tablet 1 mg PO TID PRN (Reason: Dizziness) RF: 0 albuterol sulfate 90 mcg/actuation Hfa Aerosol Inhaler 2 puff INHALATION Q4 PRN (Reason: Shortness Of Breath Or Wheezing) RF: 0 Mucinex Sinus-Max tablet 1 tab PO QAM PRN (Reason: Sinus Symptoms) RF: 0 Discharge Orders: Discharge Order (Routine); Ordered 10/07/19 Ordered By: Jadiel Young/Other Patient Handouts: ED Dislocation Joint, ED Dislocation Hip Traumatic Redu Admission Data Admit Date/Time: 10/05/19 17:39 Attending Provider: Jadiel White Admit Provider: Padmini Chavez Primary Care Provider: Joleen Hood Other Providers: Piter Odom Other Interventions: Discharge Summary Assessment (RN) Last Done: 10/07/19 17:01 DC Date/Time DO NOT enter until pt leaves facility: 10/07/19 19:00 Coding Level of Care Code D/C Day Management >30 mins Diagnoses Failure of right total hip arthroplasty with dislocation of hip T84.020A Hyperlipidemia E78.5 Asthma J45.909 Hypertension I10 GERD (gastroesophageal reflux disease) K21.9
[2019-10-07] MEDS: ACETAMINOPHEN 325 MG TAB PO PRN (18:42)
== END 2019-10-07 19:00 | disposition home or self-care (01) | DRG 561 ==
LOC: SUATTDRO 17:39 → 3E 17:39